=== PATIENT | female | born 1930 | race Caucasian/White ===

== ENCOUNTER 2017-05-30 15:05 | Inpatient (IN) | payer OTHER, MEDICARE ==
[2017-05-30 15:10] VITALS: BMI 26.2
--- NOTE | 2017-05-30 15:22 | PDOC ---
History of Present Illness - General History Source: Patient, Care Provider, Friend Exam Limitations: No Limitations - History of Present Illness Initial Comments: 05/30/17 16:19 The patient is an 86 year old female with past medical history of hypertension, Afib (currently not on blood thinners), venous stasis ulcers, and dementia who arrives to the ED from her PCPs office for low blood pressure today. As per aid , the patient had increased ambulation than she's had in the past few days because of her doctors appointment today. The aid states that upon arrival to the doctors office the patients hands became very cold and clammy, and the patient had a brief episode of unresponsiveness. At that time her blood pressure was taken and noted to be low. She denies any LOC. In the ED, the patient seems to have returned to her baseline, but her blood pressure remains low. The aid also reports that the patient has been battling a cold for the past ten days, complaining of a dry cough that has been improving every day. They note that she had been not at her baseline while fighting the cold, but has been a lot better today prior to this incident. In mid April, the patient fell and injured her leg, causing formation of a hematoma on her right leg, as a result of her Xarelto, which was excised at [facility] three weeks ago. The patient has not been on blood thinners since, but was at her PCPs office today to see if she can return to taking them. The patient also had a wound check on Saturday which has been healing well, and a new dressing was placed. She denies any sick contacts. She denies any fevers or chills, nausea, vomiting, diarrhea, SOB, CP, or urinary complaints. PCP: Jair Márquez <Rach Byers - Last Filed: 05/30/17 18:11> <Henrique Cardoso - Last Filed: 05/31/17 09:06> - General Chief Complaint: Lethargy Stated Complaint: LETHARGY,WEAKNESS Time Seen by Provider: 05/30/17 15:18 Past History <Rach Byers - Last Filed: 05/30/17 18:11> - Suicide/Smoking/Psychosocial Hx Smoking History: Never smoked Hx Alcohol Use: No Drug/Substance Use Hx: No Substance Use Type: None <Henrique Cardoso - Last Filed: 05/31/17 09:06> - Past Medical History Allergies/Adverse Reactions: Allergies Allergy/AdvReac Type Severity Reaction Status Date / Time iodine Allergy Verified 05/30/17 15:06 Penicillins Allergy Verified 05/30/17 15:06 donepezil AdvReac Intermediate abdominal Verified 05/30/17 15:06 pain Home Medications: Ambulatory Orders Cholecalciferol (Vitamin D3) [Vitamin D3] 2,000 unit PO DAILY tablet 01/22/17 Donepezil HCl [Aricept] 5 mg PO HS 05/30/17 Furosemide [Lasix] 20 mg PO BID 05/30/17 Potassium Chloride [K-Dur -] 20 meq PO BID 05/30/17 Review of Systems - Review of Systems Able to Perform ROS?: Yes Comments:: 05/30/17 16:21 CONSTITUTIONAL: Present: weakness, unresponsiveness Absent: fever, chills, diaphoresis HEENT: Absent: rhinorrhea, nasal congestion, throat pain, throat swelling, difficulty swallowing, mouth swelling, ear pain, eye pain, visual Changes CARDIOVASCULAR: Present: low blood pressure Absent: chest pain, syncope, palpitations, irregular heart rate, lightheadedness , peripheral edema RESPIRATORY: Present: cough Absent: shortness of breath, dyspnea with exertion, orthopnea, wheezing, stridor, hemoptysis GASTROINTESTINAL: Absent: abdominal pain, abdominal distension, nausea, vomiting, diarrhea, constipation, melena, hematochezia GENITOURINARY: Absent: dysuria, frequency, urgency, hesitancy, hematuria, flank pain, genital pain MUSCULOSKELETAL: Absent: myalgia, arthralgia, joint swelling SKIN: Absent: rash, itching, pallor HEMATOLOGIC/IMMUNOLOGIC: Absent: easy bleeding, easy bruising, lymphadenopathy, frequent infections ENDOCRINE: Absent: unexplained weight gain, unexplained weight loss, heat intolerance, cold intolerance NEUROLOGIC: Absent: headache, focal weakness or paresthesias, dizziness, unsteady gait, seizure, mental status changes, bladder or bowel incontinence PSYCHIATRIC: Absent: anxiety, depression, suicidal or homicidal ideation, hallucinations. All Other Systems: Reviewed and Negative <Rach Byers - Last Filed: 05/30/17 18:11> *Physical Exam - Vital Signs Last Vital Signs Temp Pulse Resp BP Pulse Ox 98.6 F 73 25 H 88/65 96 05/30/17 15:06 05/30/17 15:58 05/30/17 15:58 05/30/17 15:58 05/30/17 15:58 - Physical Exam Comments: 05/30/17 16:23 Thin and chachectic, no acute distress. Relatively alert and cooperative. Denied any pain or other symptoms at present. Revealed that R leg is well healed after surgery w/o pain or drainage. PEERLA and fundus optic exam was negative. ENT clear except for mildly dry mucous membranes. Neck supple without mass. Lungs, despite moderately severe cough, clear to PNA, full breath sounds bilaterally, no wheezes, rales or rhonchi. Cardiac controlled rate, irregular rhythm. No murmurs rubs or gallops, pulses full and symmetric. Abdomen was nontender without rebound or guarding. No organomegaly. Neurologically intact. Mild generalized weakness consistent with age and health , cranial nerves 2-12 in tact, no focal deficits, numbness or weakness <Rach Byers - Last Filed: 05/30/17 18:11> - Vital Signs Last Vital Signs Temp Pulse Resp BP Pulse Ox 98.6 F 74 16 93/62 92 L 05/30/17 15:06 05/30/17 15:06 05/30/17 15:06 05/30/17 15:06 05/30/17 15:06 <Henrique Cardoso - Last Filed: 05/31/17 09:06> ED Treatment Course - LABORATORY CBC & Chemistry Diagram: 05/30/17 15:30 05/30/17 15:30 - ADDITIONAL ORDERS Additional order review: Laboratory Results 05/30/17 15:30 PT with INR 14.8 H INR 1.33 H 05/30/17 15:30 RBC 4.35 MCV 89.1 MCHC 31.8 L RDW 13.6 MPV 9.7 Neutrophils % 72.8 Lymphocytes % 17.3 Monocytes % 9.1 Eosinophils % 0.2 Basophils % 0.6 - RADIOLOGY Radiograph Interpretation: 05/30/17 17:41 Chest X-ray as reviewed by Dr. Vo reports no definite infiltrate identified. Cardiomegaly. <Rach Byers - Last Filed: 05/30/17 18:11> - LABORATORY CBC & Chemistry Diagram: 05/31/17 07:30 05/31/17 01:30 <Henrique Cardoso - Last Filed: 05/31/17 09:06> Medical Decision Making - Medical Decision Making 05/30/17 17:56 Phone call placed to patient's PCP, Dr. Jair Márquez. Awaiting call back. 05/30/17 18:11 Dr. Márquez called back and case was discussed. Microblog sent to [facility] and call returned promptly. Case discussed. <Rach Byers - Last Filed: 05/30/17 18:11> - Medical Decision Making 05/30/17 17:47 Patient experienced mild vasovagal symptoms while in her doctor's office, becoming less responsive, cool, clammy, and diaphoretic for a short period of time. There was no loss of consciousness. Her blood pressure was noted to be low and she was transferred to the ER for evaluation Patient now is asymptomatic. She is alert and her mental status is normal according to her long time home health aide and her close friend, who accompany her. No recent chest pain, shortness of breath, abdominal pain, nausea, vomiting , diarrhea, diaphoresis. She has had a productive cough for approximately 1 week. 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 No interval change from prior EKG dated 10/13/[address] Márquez. Blood pressure has stabilized. Patient is not lightheaded or dizzy. Laboratories are significant for white count of 15.1 and troponin level of 0.21. Without specific cardiac symptoms and no change in EKG, did not feel this is clinically consistent with myocardial ischemia. However, primary attending was contacted, as well as the hospitalist, and she will be admitted for observation, serial EKGs and enzymes, and further treatment. Urinalysis is clear. Chest x-ray without infiltrate. Abdomen benign. Elevated white count most likely due to URI and/or bronchitis. Because of the elevated troponin, the patient will be admitted for observation, serial enzymes and EKGs. Dr. Márquez, Dr. Eason from cardiology, and hospitalist Dr. Faust were consulted by phone, the case was discussed, preliminary findings were reviewed, and the patient was accepted for admission and consultation. 05/30/17 18:16 05/30/17 18:21 05/31/17 09:04 <Henrique Cardoso - Last Filed: 05/31/17 09:06> *DC/Admit/Observation/Transfer - Attestations Scribe Attestion: 05/30/17 16:29 Documentation prepared by Rach Byers, acting as medical services coordinator for Henrique Caruso MD. <Rach Byers - Last Filed: 05/30/17 18:11> - Discharge Dispostion Admit: Yes <Henrique Cardoso - Last Filed: 05/31/17 09:06> Diagnosis at time of Disposition: Syncope, near - Discharge Dispostion Condition at time of disposition: Stable
[2017-05-30 15:36] LABS: EOS % 0.2 % (0-4.5); RDW 13.6 % (11.6-15.6)
[2017-05-30 15:43] LABS: BASO % 0.6 % (0-2.0); HEMATOCRIT 38.7 % (32.4-45.2); HEMOGLOBIN 12.3 GM/dl (10.7-15.3); LYMPH % 17.3 % (8-40); MCH 28.3 pg (25.7-33.7); MCHC 31.8 g/dl (32.0-36.0); MEAN CELL VOLUME 89.1 fl (80-96); MEAN PLT VOLUME 9.7 fl (7.5-11.1); MONO % 9.1 % (3.8-10.2); NEUT % 72.8 % (42.8-82.8); PLATELET COUNT 287 K/MM3 (134-434); RBC 4.35 M/mm3 (3.60-5.2); WHITE BLOOD COUNT 15.1 K/mm3 (4.0-10.8)
[2017-05-30 15:58] LABS: INR 1.33 (0.82-1.09); PROTHROMBIN TIME (PATIENT) 14.8 SEC (10.2-13.0)
[2017-05-30] MEDS ORDERED: SODIUM CHLORIDE 250 ML IV STA (15:58)
[2017-05-30 16:38] LABS: ALK PHOS 70 U/L (32-92); ANION GAP 13 (8-16); BILIRUBIN,TOTAL 0.7 mg/dl (0.2-1.0); BLOOD UREA NITROGEN 22 mg/dl (7-18); CALCIUM 9.1 mg/dl (8.4-10.2); CHLORIDE 98 mmol/L (98-107); CO2 22 mmol/L (22-28); CREATININE 1.7 mg/dl (0.6-1.3); GLUCOSE,RANDOM 226 mg/dl (74-106); POTASSIUM 5.1 mmol/L (3.5-5.1); SGOT/AST 25 U/L (10-42); SGPT/ALT 13 U/L (10-40); SODIUM 133 mmol/L (136-145); TOT PROT 6.4 g/dl (6.4-8.3)
[2017-05-30 17:33] LABS: TROPONIN I (DFP) 0.21 ng/ml (0.03-0.50)
[2017-05-30 18:00] LABS: URINE APPEARANCE Clear; URINE BILIRUBIN Negative (NEGATIVE); URINE BLOOD Negative (NEGATIVE); URINE GLUCOSE (UA) Negative (NEGATIVE); URINE KETONE Trace (NEGATIVE); URINE NITRITE Negative (NEGATIVE); URINE PROTEIN Trace (NEGATIVE); URINE UROBILINOGEN 0.2 (0.2-1.0)
[2017-05-30 18:02] LABS: URINE COLOR YELLOW
--- NOTE | 2017-05-30 22:53 | HP ---
CHIEF COMPLAINT: Brief unresponsiveness. PCP: Dr. Márquez HISTORY OF PRESENT ILLNESS: 86 year-old female with a PMH significant for HTN, atrial fibrillation off a/c x 3 weeks, systolic heart failure, carotid artery disease, venous stasis ulcers , and dementia. According to the patient's aide, patient has had upper respiratory symptoms, including a dry cough, x 10 days. Patient had an appointment to see her PCP today. Upon arrival, the patients hands became cold and clammy and she had a brief episode of unresponsiveness. Her blood pressure was taken and noted to be low. In the ED, the patient was at her baseline mental status. Patient was taken off Xarelto three weeks ago following a fall and injury to her right leg causing a hematoma which required surgical incision at [facility]. ER course was notable for: (1) BP 88/65 (2) WBC 15.1, afebrile (3) Lactic acid 3.2-->2.2 Recent Travel: No PAST MEDICAL HISTORY: Hypertension Atrial fibrillation Systolic heart failure Carotid artery disease Venous stasis ulcers Dementia Right leg wound s/p fall x 3 weeks ago PAST SURGICAL HISTORY: Incision and drainage of right leg hematoma ([facility] x 3 weeks ago) Social History: Smoking: never Alcohol: no Drugs: no Family History: Allergies iodine Allergy (Verified 05/30/17 15:06) Penicillins Allergy (Verified 05/30/17 15:06) donepezil Adverse Reaction (Intermediate, Verified 05/30/17 15:06) abdominal pain HOME MEDICATIONS: Home Medications Medication Instructions Recorded Cholecalciferol (Vitamin D3) 2,000 unit PO DAILY tablet 01/22/17 [Vitamin D3] Donepezil HCl [Aricept] 5 mg PO HS 05/30/17 Furosemide [Lasix] 20 mg PO BID 05/30/17 Potassium Chloride [K-Dur -] 20 meq PO BID 05/30/17 REVIEW OF SYSTEMS Patient uncooperative; answers every question with "you should rot in hell." Unable to obtain ROS. PHYSICAL EXAMINATION Vital Signs - 24 hr 05/30/17 05/30/17 05/30/17 15:06 15:58 16:22 Temperature 98.6 F Pulse Rate 74 Pulse Rate [ 73 86 Apical] Respiratory 16 25 H 21 Rate Blood Pressure 93/62 Blood Pressure 88/65 100/69 [Right Arm] O2 Sat by Pulse 92 L 96 89 L Oximetry (%) 05/30/17 05/30/17 05/30/17 16:24 16:50 17:11 Temperature Pulse Rate 75 83 79 Pulse Rate [ Apical] Respiratory Rate Blood Pressure Blood Pressure [Right Arm] O2 Sat by Pulse 92 L 92 L 93 L Oximetry (%) 05/30/17 05/30/17 05/30/17 17:24 18:20 18:32 Temperature Pulse Rate Pulse Rate [ 80 96 H Apical] Respiratory 21 19 121 H Rate Blood Pressure Blood Pressure 96/72 136/90 [Right Arm] O2 Sat by Pulse 92 L 93 L 93 L Oximetry (%) 05/30/17 05/30/17 05/30/17 19:37 20:18 20:52 Temperature 97.5 F L Pulse Rate 86 Pulse Rate [ 83 Apical] Respiratory 121 H 18 18 Rate Blood Pressure 111/61 Blood Pressure 96/62 [Right Arm] O2 Sat by Pulse 93 L 92 L 92 L Oximetry (%) GENERAL: Awake. Refuses to answer questions. HEAD: Normal with no signs of trauma. EYES: Pupils equal, round and reactive to light, extraocular movements intact, sclera anicteric, conjunctiva clear. No lid lag. EARS, NOSE, THROAT: Ears normal, nares patent, oropharynx clear without exudates. Moist mucous membranes. NECK: Normal range of motion, supple without lymphadenopathy, JVD, or masses. LUNGS: Breath sounds equal, clear to auscultation bilaterally. No wheezes, and no crackles. No accessory muscle use. HEART: Regular rate and rhythm, normal S1 and S2 . ABDOMEN: Soft, nontender, not distended, normoactive bowel sounds, no guarding, no rebound, no masses. MUSCULOSKELETAL: Normal range of motion at all joints. No bony deformities or tenderness. No CVA tenderness. UPPER EXTREMITIES: 2+ pulses, warm, well-perfused. No cyanosis. No clubbing. No peripheral edema. LOWER EXTREMITIES: 2+ pulses, warm, well-perfused. No calf tenderness. 2+ edema LLE; unaboot dressing removed from RLE, large surgical wound on lateral aspect, no active bleeding, no pus NEUROLOGICAL: Cranial nerves II-XII intact. PSYCHIATRIC: Uncooperative. Irritable, cursing, trying to kick staff. Laboratory Results - last 24 hr 05/30/17 05/30/1705/30/18 15:30 15:30 15:30 WBC 15.1 H D RBC 4.35 Hgb 12.3 D Hct 38.7 MCV 89.1 MCH 28.3 MCHC 31.8 L RDW 13.6 Plt Count 287 MPV 9.7 Neutrophils % 72.8 Lymphocytes % 17.3 Monocytes % 9.1 Eosinophils % 0.2 Basophils % 0.6 PT with INR 14.8 H INR 1.33 H Sodium 133 L Potassium 5.1 D Chloride 98 Carbon Dioxide 22 D Anion Gap 13 BUN 22 H Creatinine 1.7 H D Creat Clearance w eGFR 28.56 Random Glucose 226 H D Lactic Acid Calcium 9.1 Total Bilirubin 0.7 D AST 25 ALT 13 D Alkaline Phosphatase 70 Creatine Kinase 43 Troponin I 0.21 Total Protein 6.4 Albumin 3.0 L D Urine Color Urine Appearance Urine pH Ur Specific [place] Urine Protein Urine Glucose (UA) Urine Ketones Urine Blood Urine Nitrite Urine Bilirubin Urine Urobilinogen Ur Leukocyte Esterase 05/30/17 05/30/17 05/30/17 15:48 17:37 19:05 WBC RBC Hgb Hct MCV MCH MCHC RDW Plt Count MPV Neutrophils % Lymphocytes % Monocytes % Eosinophils % Basophils % PT with INR INR Sodium Potassium Chloride Carbon Dioxide Anion Gap BUN Creatinine Creat Clearance w eGFR Random Glucose Lactic Acid 3.2 H* 2.2 H* Calcium Total Bilirubin AST ALT Alkaline Phosphatase Creatine Kinase Troponin I Total Protein Albumin Urine Color Yellow Urine Appearance Clear Urine pH 6.0 Ur Specific [place] 1.015 Urine Protein Trace Urine Glucose (UA) Negative Urine Ketones Trace Urine Blood Negative Urine Nitrite Negative Urine Bilirubin Negative Urine Urobilinogen 0.2 Ur Leukocyte Esterase Negative ASSESSMENT/PLAN: 86 year-old female with a PMH significant for HTN, atrial fibrillation off a/c, systolic heart failure, carotid artery disease, venous stasis ulcers, and dementia. Has had URI for 10 days. Placed on observation for syncopal episode, THO, RLE wound and URI. Syncope --r/o neuro: CT head ordered --r/o cardiac: --first troponin neg, two pending --CXR unremarkable --serial ECGs --telemetry monitoring --r/o orthostasis --orthostatics Atrial fibrillation --off a/c x 3 weeks due to leg trauma and hematoma --continue atenolol for rate control --will not restart anticoagulation until intial CT head results back; if no bleed, consider restarting Xarelto, ASA Carotid artery disease --10/21/15 US: small to moderate plaques right common carotid bifurcation and proximal internal carotid artery; small to moderate size plaques left common carotid bifurcation and bulb; no evidence of hemodynamically significant stenosis --is not on statin therapy, should check with PCP if that has been considered Systolic heart failure --10/21/15 Echo: mild cLVH, LV function low normal, borderline global hypokinesis; VIKRAM; mild MR; mild TR --is on home lasix and potassium; hold for now due to low blood pressure, THO , and likely low volume state --CXR is clear, respiratory status stable THO Lactic acidosis --Cr 1.7, baseline 1.1, likely prerenal; urine sodium and urine Cr pending to calculate FeNa --hold home lasix; hold lisinopril --gentle IV fluids, monitor volume status carefully due to systolic HF Right lower extremity wound --large area of excised skin on lateral aspect; dried pus and blood on dressing but wound bed is very clean, clean edges, no active bleeding --re-dress with xeroform and sterile gauze --this may be the source of leukocytosis; if persists, may need osteo workup --no antibiotics for now Upper respiratory infection --reportedly going on for 10 days but improved according to aide --CXR unremarkable --no fever, + leukocytosis --flu swab pending --urine antigens pending --blood and urine cultures pending --hold antibiotics for now, recheck cbc in am Dementia --continue donepezil FEN Fluids: NS @ 42mL/hr Electrolytes: replete as indicated Nutrition: low sodium DVT prophylaxis: subq heparin Physical therapy evaluation Dispo: continues to require inpatient care. Full code. Visit type - Emergency Visit Emergency Visit: Yes ED Registration Date: 05/30/17 Care time: The patient presented to the Emergency Department on the above date and was hospitalized for further evaluation of their emergent condition. - New Patient This patient is new to me today: Yes Date on this admission: 05/31/17 - Critical Care Critical Care patient: No
[2017-05-30] MEDS: SODIUM CHLORIDE 1,000 ML IV SCH (23:18)
[2017-05-30] MEDS ORDERED: PATIENT'S OWN MEDICATION (NON-FORMULARY) (Atenolol [Tenormin -] 100 MG) PO SCH (23:45)
[2017-05-31] MEDS ORDERED: LORazepam 2 MG/ML SDV VIAL IVPUSH ONE (01:13)
[2017-05-31] MEDS ORDERED: LORazepam 2 MG/ML SDV VIAL ONE (01:29)
[2017-05-31 01:56] LABS: BASO % 0.5 % (0-2.0); EOS % 0.5 % (0-4.5); HEMATOCRIT 33.9 % (32.4-45.2); HEMOGLOBIN 10.8 GM/dL (10.7-15.3); LYMPH % 26.1 % (8-40); MCH 27.5 pg (25.7-33.7); MCHC 31.9 g/dl (32.0-36.0); MEAN CELL VOLUME 86.3 fl (80-96); MEAN PLT VOLUME 9.1 fl (7.5-11.1); MONO % 8.9 % (3.8-10.2); PLATELET COUNT 231 K/MM3 (134-434); RBC 3.93 M/mm3 (3.60-5.2); RDW 14.9 % (11.6-15.6); WHITE BLOOD COUNT 14.9 K/mm3 (4.0-10.0)
[2017-05-31 02:29] LABS: ALBUMIN 2.6 g/dl (3.4-5.0); ANION GAP 7 (8-16); BILIRUBIN,TOTAL 0.6 mg/dL (0.2-1.0); BLOOD UREA NITROGEN 25 mg/dL (7-18); CALCIUM 8.2 mg/dL (8.5-10.1); CHLORIDE 102 mmol/L (98-107); CO2 26 mmol/L (21-32); CREATININE 1.5 mg/dL (0.55-1.02); GLUCOSE,RANDOM 128 mg/dL (74-106); MAGNESIUM 2.2 mg/dL (1.8-2.4); PHOSPHOROUS 3.8 mg/dL (2.5-4.9); POTASSIUM 4.7 mmol/L (3.5-5.1); SGOT/AST 15 U/L (15-37); SGPT/ALT 15 U/L (12-78); SODIUM 135 mmol/L (136-145); TOT PROT 6.3 g/dl (6.4-8.2)
[2017-05-31 02:32] LABS: ALK PHOS 82 U/L (45-117)
--- NOTE | 2017-05-31 03:00 | HOSP ---
Subjective - Review of Symptoms Subjective: I got a phone call at 2:58 am from radiology , No acute process on CT HEAD Physical Examination Vital Signs: Vital Signs Temperature 97.5 F L 05/30/17 20:18 Pulse Rate 86 05/30/17 20:18 Respiratory Rate 18 05/30/17 20:52 Blood Pressure 111/61 05/30/17 20:18 O2 Sat by Pulse Oximetry (%) 92 L 05/30/17 20:52 Labs: CBC, BMP 05/31/17 01:30 05/31/17 01:30
[2017-05-31] MEDS ORDERED: FUROSEMIDE 20 MG TABLET (FP) PO SCH (06:00)
[2017-05-31] MEDS ORDERED: HEPARIN NA (PORCINE) 5,000 UNITS/ML 1ML VIAL ONE (06:42)
[2017-05-31] MEDS ORDERED: HEPARIN NA (PORCINE) 5,000 UNITS/ML 1ML VIAL SQ SCH (06:45)
--- NOTE | 2017-05-31 06:54 | PN ---
Physical Exam: SUBJECTIVE: Patient seen and examined, wants to be left alone, voices no complaints OBJECTIVE:86 year-old female with a PMH significant for HTN, atrial fibrillation off a/c x 3 weeks, systolic heart failure, carotid artery disease, venous stasis ulcers, and dementia. Patient was admitted from the emergency department for emergent condition. Vital Signs Period Temp Pulse Resp BP Sys/Valerio Pulse Ox Last 24 Hr 97.5 F-98.6 F 73-96 16-121 88-136/42-90 89-96 GENERAL: The patient is awake, alert, and oriented x person, agitate. HEAD: Normal with no signs of trauma. EYES: PERRL, extraocular movements intact, sclera anicteric, conjunctiva clear. No ptosis. ENT: Ears normal, nares patent, oropharynx clear without exudates, moist mucous membranes. NECK: Trachea midline, full range of motion, supple. LUNGS: Breath sounds equal, clear to auscultation bilaterally, no wheezes, no crackles, no accessory muscle use. HEART: Regular rate and rhythm, S1, S2 without murmur, rub or gallop. ABDOMEN: Soft, nontender, nondistended, normoactive bowel sounds, no guarding, no rebound, no hepatosplenomegaly, no masses. EXTREMITIES: 2+ pulses, warm, well-perfused, no edema. RIGHT LOWER EXTREMITY: surgical wound to the distal lateral right extremity, no drainage noted, xerorform dressing noted NEUROLOGICAL: Cranial nerves II through XII grossly intact. Normal speech, gait not observed. PSYCH: Normal mood, normal affect. SKIN: Warm, dry, normal turgor, no rashes or lesions noted Laboratory Results - last 24 hr CBC WBC 13.5 K/mm3 (4.0-10.8) H 05/31/17 07:30 RBC 3.65 M/mm3 (3.60-5.2) 05/31/17 07:30 Hgb 10.6 GM/dl (10.7-15.3) L D 05/31/17 07:30 Hct 32.3 % (32.4-45.2) L D 05/31/17 07:30 MCV 88.5 fl (80-96) 05/31/17 07:30 MCH 29.2 pg (25.7-33.7) 05/31/17 07:30 MCHC 33.0 g/dl (32.0-36.0) 05/31/17 07:30 RDW 13.8 % (11.6-15.6) 05/31/17 07:30 Plt Count 219 K/MM3 (134-434) 05/31/17 07:30 MPV 9.2 fl (7.5-11.1) 05/31/17 07:30 Neutrophils % 69.8 % (42.8-82.8) 05/31/17 07:30 Lymphocytes % 20.9 % (8-40) 05/31/17 07:30 Monocytes % 8.6 % (3.8-10.2) 05/31/17 07:30 Eosinophils % 0.5 % (0-4.5) 05/31/17 07:30 Basophils % 0.2 % (0-2.0) 05/31/17 07:30 CMP Sodium 137 mmol/L (136-145) 05/31/17 07:30 Potassium 4.8 mmol/L (3.5-5.1) 05/31/17 07:30 Chloride 104 mmol/L (98-107) 05/31/17 07:30 Carbon Dioxide 23 mmol/L (22-28) 05/31/17 07:30 Anion Gap 10 (8-16) 05/31/17 07:30 BUN 24 mg/dl (7-18) H 05/31/17 07:30 Creatinine 1.4 mg/dl (0.6-1.3) H 05/31/17 07:30 Creat Clearance w eGFR 35.74 (>60) 05/31/17 07:30 Random Glucose 138 mg/dl (74-106) H D 05/31/17 07:30 Lactic Acid 1.2 mmol/L (0.4-2.0) 05/31/17 07:00 Calcium 8.4 mg/dl (8.4-10.2) 05/31/17 07:30 Phosphorus 3.8 mg/dl (2.5-4.6) 05/31/17 07:30 Magnesium 2.0 mg/dL (1.8-2.4) 05/31/17 07:30 Total Bilirubin 0.5 mg/dl (0.2-1.0) D 05/31/17 07:30 AST 17 U/L (10-42) D 05/31/17 07:30 ALT 11 U/L (10-40) 05/31/17 07:30 Alkaline Phosphatase 57 U/L (32-92) 05/31/17 07:30 Creatine Kinase 43 IU/L (26-192) 05/30/17 15:30 Troponin I 0.15 ng/ml (0.00-0.05) H 05/31/17 01:30 Total Protein 5.4 g/dl (6.4-8.3) L 05/31/17 07:30 Albumin 2.5 g/dl (3.5-5.0) L 05/31/17 07:30 Active Medications Generic Name Dose Route Start Last Admin Trade Name Freq PRN Reason Stop Dose Admin Atenolol 50 mg 05/31/17 10:00 Tenormin - PO DAILY ITZEL Donepezil HCl 5 mg 05/31/17 22:00 Aricept - PO HS ITZEL Heparin Sodium (Porcine) 5,000 unit 05/31/17 06:45 Heparin - SQ TID ITZEL Sodium Chloride 1,000 mls @ 42 mls/hr 05/30/17 23:45 Normal Saline - IV ASDIR ITZEL Microbiology 05/31/17 01:30 Nasopharyngeal Swab Influenza Types A,B Antigen (KAITLYNN) - Final , negative 05/31/17 01:30 Nasopharyngeal Swab - Final IMAGING head ct no acute pathology chest xray: borderline cardiomegly, no infilitrate noted ASSESSMENT/PLAN: 1) cardiovascular Syncope - continous cardiac monitoring - orthostatic vital signs q6h - pending echo and carotid doppler elevated troponin - likely secondary to ischemic demand, first troponin 0.21, pending 2nd & 3rd afib - restart xarelto (renal dose), rate controlled continue atenolol Carotid artery disease - pending carotid doppler and lipid profile Systolic heart failure -10/21/15 Echo: mild cLVH, LV function low normal, borderline global hypokinesis; VIKRAM; mild MR; mild TR, pending echo today - hypovolemic hold lasix, strict i/o and daily weight 2) nephrology THO - repeat creatine 1.4 baseline 1.1, likely prerenal; urine sodium and urine Cr pending to calculate FeNa - --hold home lasix; hold lisinopril - gentle IV fluids, monitor volume status carefully due to systolic HF 3) Right lower extremity wound - large area of excised skin on lateral aspect, wound bed is very clean, clean edges, no active bleeding - continue xeroform and sterile gauze 4) ID leukocytosis - wbc 13.5, pt is afebrile, pending am labs, follow up blood and urine cultures - moist cough noted on exam, repeat cxr 5) neuro Dementia - continue donepezil FEN Fluids: NS @ 42mL/hr Electrolytes: replete as indicated Nutrition: low sodium DVT prophylaxis: xarelto Physical therapy evaluation Dispo: continues to require inpatient care. Full code. Visit type - Emergency Visit Emergency Visit: Yes ED Registration Date: 05/31/17 Care time: The patient presented to the Emergency Department on the above date and was hospitalized for further evaluation of their emergent condition. - New Patient This patient is new to me today: Yes Date on this admission: 05/31/17 - Critical Care Critical Care patient: No - Discharge Referral Referred to [facility] Med P.C.: No
[2017-05-31 08:23] LABS: BASO % 0.2 % (0-2.0); EOS % 0.5 % (0-4.5); HEMATOCRIT 32.3 % (32.4-45.2); HEMOGLOBIN 10.6 GM/dl (10.7-15.3); LYMPH % 20.9 % (8-40); MCH 29.2 pg (25.7-33.7); MEAN CELL VOLUME 88.5 fl (80-96); MEAN PLT VOLUME 9.2 fl (7.5-11.1); MONO % 8.6 % (3.8-10.2); NEUT % 69.8 % (42.8-82.8); PLATELET COUNT 219 K/MM3 (134-434); RBC 3.65 M/mm3 (3.60-5.2); RDW 13.8 % (11.6-15.6); WHITE BLOOD COUNT 13.5 K/mm3 (4.0-10.8)
[2017-05-31 09:37] LABS: ALBUMIN 2.5 g/dl (3.5-5.0); ALK PHOS 57 U/L (32-92); ANION GAP 10 (8-16); BILIRUBIN,TOTAL 0.5 mg/dl (0.2-1.0); BLOOD UREA NITROGEN 24 mg/dl (7-18); CALCIUM 8.4 mg/dl (8.4-10.2); CHLORIDE 104 mmol/L (98-107); CO2 23 mmol/L (22-28); CREATININE 1.4 mg/dl (0.6-1.3); GLUCOSE,RANDOM 138 mg/dl (74-106); PHOSPHOROUS 3.8 mg/dl (2.5-4.6); POTASSIUM 4.8 mmol/L (3.5-5.1); SGOT/AST 17 U/L (10-42); SGPT/ALT 11 U/L (10-40); SODIUM 137 mmol/L (136-145); TOT PROT 5.4 g/dl (6.4-8.3)
[2017-05-31] MEDS ORDERED: POTASSIUM CHLORIDE TABS 20 MEQ TABLET.ER (FP) PO SCH (10:00)
--- NOTE | 2017-05-31 10:13 | EKG ---
Test Reason : Blood Pressure : / mmHG Vent. Rate : 076 BPM Atrial Rate : 098 BPM P-R Int : 000 ms QRS Dur : 076 ms QT Int : 396 ms P-R-T Axes : 000 -39 -08 degrees QTc Int : 445 ms ATRIAL FIBRILLATION LEFT AXIS DEVIATION ANTERIOR INFARCT , AGE UNDETERMINED ABNORMAL ECG NO PREVIOUS ECGS AVAILABLE Confirmed by MD AJ, JUILAN ([id number]) on 05/31/2017 10:13:07 AM Referred By: DR MICHELLE Confirmed By:JULIAN ROCHA MD
[2017-05-31] MEDS: ATENOLOL 50 MG TABLET (FP) PO SCH (10:19)
[2017-05-31 12:19] LABS: TROPONIN I (DFP) 0.12 ng/ml (0.03-0.50)
[2017-05-31 17:08] LABS: CHOLESTEROL 119 mg/dl; HDL CHOLESTEROL 22 mg/dl (29-89); LDL CHOLESTEROL (ONLY DFH) 73 mg/dl; TRIGLYCERIDES 121 mg/dl (35-160)
[2017-05-31] MEDS ORDERED: RIVAROXABAN 15 MG TABLET PO SCH (18:00)
--- NOTE | 2017-05-31 18:45 | EKG ---
Test Reason : Blood Pressure : / mmHG Vent. Rate : 080 BPM Atrial Rate : 110 BPM P-R Int : 000 ms QRS Dur : 072 ms QT Int : 446 ms P-R-T Axes : 000 -38 -27 degrees QTc Int : 514 ms ATRIAL FIBRILLATION LEFT AXIS DEVIATION SEPTAL INFARCT (CITED ON OR BEFORE 30-MAY-2017) T WAVE ABNORMALITY, CONSIDER ANTERIOR ISCHEMIA PROLONGED QT WHEN COMPARED WITH ECG OF 30-MAY-2017 15:44, T WAVE INVERSION NOW EVIDENT IN ANTERIOR LEADS QT HAS LENGTHENED Confirmed by MD SEVERIANO, ANANYA ([id number]) on 05/31/2017 6:45:15 PM Referred By: ROXANE COLE Confirmed By:ANANYA العلي MD
[2017-05-31] MEDS ORDERED: HEPARIN NA (PORCINE) 5,000 UNITS/ML 1ML VIAL IVPUSH PRN (19:18)
[2017-05-31] MEDS ORDERED: HEPARIN - 25,000 UNIT in SODIUM CHLORIDE 495 ML IV SCH (19:30)
[2017-05-31 21:05] LABS: TROPONIN I (DFP) 0.07 ng/ml (0.03-0.50)
--- NOTE | 2017-05-31 21:09 | HOSP ---
Subjective - Review of Symptoms Events since last encounter: verbal report of possible thrombus in right atria on echo obtained Subjective: pt with c/o being "terrible" unable to give specific complaints. pt has dementia and is unable or unwilling to provide further details Physical Examination Vital Signs: Vital Signs Temperature 98.3 F 05/31/17 20:14 Pulse Rate 88 05/31/17 20:14 Respiratory Rate 18 05/31/17 20:14 Blood Pressure 138/95 05/31/17 20:14 O2 Sat by Pulse Oximetry (%) 97 05/31/17 20:14 Constitutional: Yes: Other (mildly uncooperative) Cardiovascular: Yes: Regular Rate and Rhythm, S1, S2 Respiratory: Yes: CTA Bilaterally Gastrointestinal: Yes: Normal Bowel Sounds, Soft, Tenderness (on deep palpation) Labs: CBC, BMP 05/31/17 07:30 05/31/17 07:30 Hospitalist Encounter Assessment: B/L DVT, possible thrombus in RA - DW dr. Smith, will change from xarelto to heparin for now, hematology consult - there is concern for the RA thrombus to break off and travel causing PE. At this time pt is stable, showing no signs of PE, Cr 1.4, unable to do CTA, discussed possibility of transfer to [facility] where there is ICU availabe; however treatment plan would likely be unchanged from current. Will defer transfer unless acute CIC or deterioration. - TC placed to brother, Elver Cordoba to discuss goals of care as well as advanced directives. Message left on voicemail. [phone], she also has a close friend in the area who looks in on her from time to time: pam Cordoba [phone] and I updated her briefly on her condition when she called the unit.
--- NOTE | 2017-05-31 21:32 | CON.CARD ---
Cardiology Consult (text) - Consultation Consultation Note: CC: syncope 86 yo with h/o HTN, atrial fibrillation, borderline systolic dysfunction, carotid artery disease, venous stasis ulcers/Right leg wound s/p fall x 3 weeks ago, ckd and dementia who p/w hypotension/episode of unresponsiveness. Per report had been off AC for 3 weeks following a fall and injury to her right leg/chronic venous stasis ulcer requiring surgery. Per report, had recent upper respiratory symptoms, including a dry cough, x 10 days. On pmd evaluation was noted to be hypotensive --> brought to ER Hospital course complicated by elevated troponin and now diagnosis of DVT and right atrial mobile mass. pmhx/pshx: per hpi fam hx: per report, no cardiac history social hx: never smoker. has aid ros: per hpi Allergies iodine Allergy (Verified 05/30/17 15:06) Penicillins Allergy (Verified 05/30/17 15:06) donepezil Adverse Reaction (Intermediate, Verified 05/30/17 15:06) abdominal pain Ambulatory Orders Cholecalciferol (Vitamin D3) [Vitamin D3] 2,000 unit PO DAILY tablet 01/22/17 Donepezil HCl [Aricept] 5 mg PO HS 05/30/17 Furosemide [Lasix] 20 mg PO BID 05/30/17 Potassium Chloride [K-Dur -] 20 meq PO BID 05/30/17 Current Medications Atenolol (Tenormin -) 50 mg PO DAILY [facility] Last Admin: 05/31/17 10:19 Dose: 50 mg Donepezil HCl (Aricept -) 5 mg PO [facility] Heparin Sodium (Porcine) (Heparin -) 1,000 unit IVPUSH PRN PRN PRN Reason: Heparin Heparin Sodium (Porcine) (Heparin -) 5,000 unit IVPUSH PRN PRN PRN Reason: Heparin Sodium Chloride (Normal Saline -) 1,000 mls @ 42 mls/hr IV ASDIR ITZEL Last Admin: 05/30/17 23:18 Dose: 42 mls/hr HEPARIN SOD,PORK IN 0.45% NACL (Heparin-1/2ns 25,000 Units/500) 25,000 units in 500 mls @ 20 mls/hr IVPB TITR ITZEL; 1,000 UNITS/HR PRN Reason: Protocol Vital Signs - 24 hr 05/31/17 05/31/17 05/31/17 06:00 08:11 10:23 Temperature Pulse Rate 77 85 Respiratory 18 18 Rate Blood Pressure 99/42 129/79 O2 Sat by Pulse 90 L 100 Oximetry (%) 05/31/17 05/31/17 14:12 20:14 Temperature 97.4 F L 98.3 F Pulse Rate 85 88 Respiratory 19 18 Rate Blood Pressure 118/69 138/95 O2 Sat by Pulse 99 97 Oximetry (%) Intake & Output 05/29/17 05/30/17 05/31/17 06/01/17 07:59 07:59 07:59 07:59 Intake Total 900 150 Output Total 100 Balance 800 150 Weight 153 lb 0.013 oz nad, calm jvd flat, neck supple ctab, poor effort irregularly, irregular, nl s1, s2 no mrg. ND PMI + bs soft nt nd, no hsm ext without e/c/c dressing to RLE wound diminished dp/pt on right no carotid bruits alert not oriented. no jaundice, diaphoresis. CBC, BMP 05/31/17 07:30 05/31/17 07:30 Laboratory Tests 05/30/17 05/30/17 05/30/17 15:30 15:48 19:05 Sodium 133 L Creatinine 1.7 H D Lactic Acid 3.2 H* 2.2 H* Total Bilirubin AST ALT Alkaline Phosphatase Creatine Kinase 43 Troponin I 0.21 Albumin Triglycerides Cholesterol Total LDL Cholesterol HDL Cholesterol 05/31/17 05/31/17 05/31/17 01:30 07:00 07:30 Sodium Creatinine Lactic Acid 1.2 Total Bilirubin 0.5 D AST 17 D ALT 11 Alkaline Phosphatase 57 Creatine Kinase Troponin I 0.15 H Albumin 2.5 L Triglycerides Cholesterol Total LDL Cholesterol HDL Cholesterol 05/31/17 05/31/17 05/31/17 08:00 11:30 15:00 Sodium Creatinine Lactic Acid Total Bilirubin AST ALT Alkaline Phosphatase Creatine Kinase 31 28 Troponin I 0.12 0.07 Albumin Triglycerides 121 D Cholesterol 119 Total LDL Cholesterol 73 HDL Cholesterol 22 L D ekg: afib, lad, anterior q waves. anterior twi. similar to priors in chart. tele: rate controlled afib. cxr: no infiltrate, chf. carotid u/s: [id number] plaques bilaterally. no stenosis. head ct: no acute pathology echo 10/2015: 1+ conc lvh. nl lv size. LVEF low normal, global. rv nl size/ fn. mod claus. mild-mod mac. 1+ mr. A/p 86 yo with h/o HTN, atrial fibrillation, borderline systolic dysfunction, carotid artery disease, venous stasis ulcers/Right leg wound s/p fall x 3 weeks ago, ckd and dementia who p/w hypotension/episode of unresponsiveness. DVT with RA mobile mass - likely with thrombus in transit, echo report pending. High risk for PE - Discussed with pmd. Patient has been refusing po meds. Nurse is currently trying to give xarelto. Plan for heparin drip trial. (Unclear if she will tolerate blood draws, patient becomes very combative at night. - Consider hematology consult - pmd to initiate goc discussions with family. per report, patient has one sister, no children. elevated troponin - borderline elevation in the setting of ckd. flat trend, normal CK. No acute ischemic changes. not consistent with ACS. Likey strain in the setting of hypotension. However, troponin was downtrending, can't r/o missed event. Echo pending, evaluate for new rwma. - no ASA, b/c restarting AC. no need for statin, LDL in 70s hypotension/unresponsiveness. - possibly in the setting of poor po intake. Patient bp/bmp improving on IVF. - ongoing work up per pmd. - syncopal work up thus far unremarkable. carotid u/s, head ct without acute pathology . echo pending. tele unremarkable. - infectious work up, mgm't of venous stasis ulcer per pmd Afib - Per report had been off AC for 3 weeks following a fall and injury to her right leg/chronic venous stasis ulcer requiring surgery. - ac as above. - currently rate controlled on atenolol. bp stable. borderline systolic dysfunction - noted on echo in 2015. - repeat echo pending - no signs of volume overload, con't maintenance ivf. carotid artery disease - on ac, no asa. would defer statin in setting of LDLin the 70's. - can consider pvr's given LE ulcer. nikki/ckd - currently gfr in 30's, was 47 01/2017 - improving on ivf, con't
[2017-05-31] MEDS ORDERED: RAMIPRIL 5 MG CAPSULE (FP) PO SCH (22:00)
[2017-05-31] MEDS: DONEPEZIL HCL 5 MG TABLET (FP) PO SCH ×2 (23:17→23:20)
[2017-05-31] MEDS: SODIUM CHLORIDE 1,000 ML IV SCH (23:45)
[2017-06-01] MEDS: HEPARIN NA (PORCINE) 5,000 UNITS/ML 1ML VIAL IVPUSH PRN (00:27)
[2017-06-01] MEDS: HEPARIN SOD,PORK IN 0.45% NACL 25,000 UNITS/500 ML INFUS.BAG IVPB SCH ×2 (00:45→10:06)
--- NOTE | 2017-06-01 07:47 | PN ---
Progress Note, Physician Chief Complaint: RA mass, syncope History of Present Illness: sleepy but wakes up to talk. denies sob ("not really"). no cp/pressure no palpitations, leg swelling no cigs - Current Medication List Current Medications: Active Medications Atenolol (Tenormin -) 50 mg PO DAILY [facility] Last Admin: 05/31/17 10:19 Dose: 50 mg Donepezil HCl (Aricept -) 5 mg PO HS [facility] Last Admin: 05/31/17 23:20 Dose: Not Given Heparin Sodium (Porcine) (Heparin -) 1,000 unit IVPUSH PRN PRN PRN Reason: Heparin Heparin Sodium (Porcine) (Heparin -) 5,000 unit IVPUSH PRN PRN PRN Reason: Heparin Last Admin: 06/01/17 00:27 Dose: 5,000 unit Sodium Chloride (Normal Saline -) 1,000 mls @ 42 mls/hr IV ASDIR [facility] Last Admin: 05/31/17 23:45 Dose: 42 mls/hr HEPARIN SOD,PORK IN 0.45% NACL (Heparin-1/2ns 25,000 Units/500) 25,000 units in 500 mls @ 20 mls/hr IVPB TITR ITZEL; 1,000 UNITS/HR PRN Reason: Protocol Last Admin: 06/01/17 00:45 Dose: 800 units/hr, 16 mls/hr - Objective Vital Signs: Vital Signs Temperature 97.8 F 06/01/17 06:00 Pulse Rate 88 06/01/17 06:00 Respiratory Rate 18 06/01/17 06:00 Blood Pressure 102/60 06/01/17 06:00 O2 Sat by Pulse Oximetry (%) 93 L 06/01/17 06:00 Constitutional: Yes: No Distress, Calm Eyes: No: Sclera Icterus HENT: No: Nasal Congestion Cardiovascular: Yes: Pulse Irregular, JVD (4-5 cm), S1, S2, Other (PMI non diplaced). No: Gallop, Murmur Respiratory: Yes: CTA Bilaterally. No: Accessory Muscle Use, Rales, Wheezes Gastrointestinal: Yes: Normal Bowel Sounds, Soft. No: Tenderness Musculoskeletal: Yes: Other (No kyphosis) Extremities: No: Cold Edema: No Integumentary: No: Jaundice Neurological: Yes: Alert, Oriented (x3) Psychiatric: No: Agitated Labs: CBC, BMP 05/31/17 07:30 05/31/17 07:30 INR, PTT INR 1.33 (0.82-1.09) H 05/30/17 15:30 - ....Imaging EKG: Other (tele: afib, good HRs) Assessment/Plan Echo 05/31/17: nl LV/EF. RV tds. dilated LA/RA. large complex echodensity in RA, protrudes into IVC c/w thrombus. mod TR. RVSP 47. LE duplex: bilat DVTs (extensive RLE) 86 year-old female with a PMH significant for HTN, atrial fibrillation off a/c x 3 weeks, ? systolic heart failure, carotid artery disease, venous stasis ulcers, and dementia. + upper respiratory symptoms, including a dry cough, x 10 days. At PMD office on DOA she became cold and clammy and she had a brief episode of unresponsiveness. Her blood pressure was noted to be low. Returned to baseline mental status. In the ED, the patient was at her baseline mental status. Patient was taken off Xarelto three weeks ago following a fall and injury to her right leg causing a hematoma which required surgical incision at [facility]. extensive LE DVT, RA thrombus: -probable thrombus in RA, extending from IVC. likely from extensive RLE thrombus , in transit. -DVT ? provoked, given recent fall with injury and surgical procedure (? duration of hospitalization/immobilization since) -no PE study done here, will not likely change mgmt as duration of AC will be similar regardless. -creat improving with IVF, cont same--GFR 38. once GFR comes up slightly more, will do CTA, in case of later questions arising regarding duration of AC (falls history noted), -for now, continue UFH as doing -monitor for signs of resp distress/hypoxia (normal sats thus far) -rec transfer to telemetry (4W) or medical step-down (4S) at [facility] when/if bed becomes available -if she remains clinically stable, will rec repeat imaging after 2-4 weeks of AC , expect thrombus to organize and/or break up -rec malignancy w/u including for renal cell carcinoma (will start with renal sono). rec hematology consult syncope: -brief LOC with hypotension on DOA at PMD office -likely sec to PE or ? right sided cardiac output obstruction from RA mass -transient sx's, hemodynamically stable since -mgmt plan as above -d/w dr tang, crit care--safe to defer ICU monitoring as she has been clinically stable x 24 hrs. Afib: -HR controlled, cont atenolol -AC as above HTN: -bp running low-normal range -cont atenolol, observe bp trend THO: -likely vol depleted/prerenal -numbers improving with IVF
[2017-06-01 09:05] LABS: HEMATOCRIT 33.9 % (32.4-45.2); HEMOGLOBIN 10.7 GM/dl (10.7-15.3); MCH 27.8 pg (25.7-33.7); MCHC 31.6 g/dl (32.0-36.0); MEAN CELL VOLUME 88.2 fl (80-96); MEAN PLT VOLUME 8.9 fl (7.5-11.1); PLATELET COUNT 222 K/MM3 (134-434); RBC 3.85 M/mm3 (3.60-5.2); RDW 13.8 % (11.6-15.6)
[2017-06-01 09:07] LABS: ADD RBC MORPHOLOGY YES
[2017-06-01 09:34] LABS: ALBUMIN 2.5 g/dl (3.5-5.0); ALK PHOS 56 U/L (32-92); ANION GAP 9 (8-16); BLOOD UREA NITROGEN 18 mg/dl (7-18); CHLORIDE 106 mmol/L (98-107); CO2 23 mmol/L (22-28); CREATININE 1.3 mg/dl (0.6-1.3); GLUCOSE,RANDOM 131 mg/dl (74-106); MAGNESIUM 2.1 mg/dL (1.8-2.4); PHOSPHOROUS 3.8 mg/dl (2.5-4.6); POTASSIUM 4.4 mmol/L (3.5-5.1); SGOT/AST 17 U/L (10-42); SGPT/ALT 9 U/L (10-40); SODIUM 138 mmol/L (136-145); TOT PROT 5.6 g/dl (6.4-8.3)
[2017-06-01] MEDS: ATENOLOL 50 MG TABLET (FP) PO SCH (10:00)
--- NOTE | 2017-06-01 10:09 | PN ---
Physical Exam: SUBJECTIVE: Patient seen and examined at bedside. OBJECTIVE: Vital Signs Period Temp Pulse Resp BP Sys/Valerio Pulse Ox Last 24 Hr 97.4 F-98.3 F 85-88 18-19 102-138/60-95 93-100 GENERAL: The patient is awake, alert, and oriented x2 (Knows name, "[facility]"), in no acute distress. Gives deliberate responses. LUNGS: Breath sounds equal, clear to auscultation bilaterally, no wheezes, no crackles, no accessory muscle use. HEART: Irregular rhythm, S1, S2 without murmur, rub or gallop. ABDOMEN: Soft, nontender, nondistended, normoactive bowel sounds, no guarding, no rebound, no hepatosplenomegaly, no masses. EXTREMITIES: 2+ pulses, warm, well-perfused, no edema. Large area of excised skin on lateral aspect, wound bed is very clean, clean edges, no active bleeding NEUROLOGICAL: Cranial nerves II through XII grossly intact. Normal speech, gait not observed. PSYCH: Normal mood, normal affect. SKIN: Large area of excised skin on lateral aspect, wound bed is very clean, clean edges, no active bleeding Laboratory Results - last 24 hr 05/30/17 05/31/17 05/31/17 15:30 08:00 11:30 WBC RBC Hgb Hct MCV MCH MCHC RDW Plt Count MPV Neutrophils % Lymphocytes % PTT (Actin FS) Sodium Potassium Chloride Carbon Dioxide Anion Gap BUN Creatinine Creat Clearance w eGFR Random Glucose Lactic Acid Cancelled Calcium Phosphorus Magnesium Total Bilirubin AST ALT Alkaline Phosphatase Creatine Kinase 31 Troponin I 0.12 Total Protein Albumin Triglycerides 121 D Cholesterol 119 Total LDL Cholesterol 73 HDL Cholesterol 22 L D 05/31/17 05/31/17 06/01/17 15:00 20:30 08:52 WBC 16.0 H RBC 3.85 Hgb 10.7 Hct 33.9 MCV 88.2 MCH 27.8 MCHC 31.6 L RDW 13.8 Plt Count 222 MPV 8.9 Neutrophils % No Result Required. Lymphocytes % No Result Required. PTT (Actin FS) 30.4 Sodium Potassium Chloride Carbon Dioxide Anion Gap BUN Creatinine Creat Clearance w eGFR Random Glucose Lactic Acid Calcium Phosphorus Magnesium Total Bilirubin AST ALT Alkaline Phosphatase Creatine Kinase 28 Troponin I 0.07 Total Protein Albumin Triglycerides Cholesterol Total LDL Cholesterol HDL Cholesterol 06/01/17 06/01/17 08:52 08:52 WBC RBC Hgb Hct MCV MCH MCHC RDW Plt Count MPV Neutrophils % Lymphocytes % PTT (Actin FS) 79.6 H Sodium 138 Potassium 4.4 Chloride 106 Carbon Dioxide 23 Anion Gap 9 BUN 18 D Creatinine 1.3 Creat Clearance w eGFR 38.93 Random Glucose 131 H Lactic Acid Calcium 8.0 L Phosphorus 3.8 Magnesium 2.1 Total Bilirubin 1.0 D AST 17 ALT 9 L Alkaline Phosphatase 56 Creatine Kinase Troponin I Total Protein 5.6 L Albumin 2.5 L Triglycerides Cholesterol Total LDL Cholesterol HDL Cholesterol Active Medications Generic Name Dose Route Start Last Admin Trade Name Freq PRN Reason Stop Dose Admin Atenolol 50 mg 05/31/17 10:00 05/31/17 10:19 Tenormin - PO 50 mg DAILY ITZEL Administration Donepezil HCl 5 mg 05/31/17 22:00 05/31/17 23:20 Aricept - PO Not Given HS ITZEL Heparin Sodium (Porcine) 1,000 unit 05/31/17 19:18 Heparin - IVPUSH PRN PRN Heparin Heparin Sodium (Porcine) 5,000 unit 05/31/17 19:18 06/01/17 00:27 Heparin - IVPUSH 5,000 unit PRN PRN Administration Heparin Sodium Chloride 1,000 mls @ 42 mls/hr 05/30/17 23:45 05/31/17 23:45 Normal Saline - IV 42 mls/hr ASDIR ITZEL Administration HEPARIN SOD,PORK IN 0.45% NACL 25,000 units in 500 mls @ 20 mls/hr 05/31/17 21 :30 06/01/17 10:06 Heparin-1/2ns 25,000 Units/500 IVPB 750 units/hr TITR ITZEL 15 mls/hr Protocol Administration 1,000 UNITS/HR Echo 05/31/17: nl LV/EF. RV tds. dilated LA/RA. large complex echodensity in RA, protrudes into IVC c/w thrombus. mod TR. RVSP 47. LE duplex: bilat DVTs (extensive RLE) Carotid dopplers: Small->mod plaques in R common carotid. No hemodynamically significant stenosis. Mod plaques L common carotid. No hemodynamically significant stenosis. ASSESSMENT/PLAN: A: 86yo woman with dementia, DVT, afib who now has RA thrombus on heparin gtt. P: RA thrombus - heparin gtt - cards following - will need CTA when Cr normalizes Bilateral DVT - heparin gtt Syncope - continous cardiac monitoring - orthostatic vital signs - Carotid dopplers as above elevated troponin - Likely demand ischemia - cards following afib - atenolol - heparin gtt Systolic heart failure - hypovolemic hold lasix, - strict i/o - daily weights THO - repeat Cr 1.3 baseline 1.1, likely prerenal - urine lytes pending - hold home lasix - hold lisinopril - NS@42 Right lower extremity wound - continue xeroform and sterile gauze leukocytosis - wbc 13.5, pt is afebrile, pending am labs, follow up blood and urine cultures - moist cough noted on exam, repeat cxr Dementia - continue donepezil FEN - NS @ 42mL/hr - replete prn - Low Na diet PPX - heparin gtt - PT Dispo: Transfer to [facility] for telemetry monitoring. Full code. Visit type - Emergency Visit Emergency Visit: Yes ED Registration Date: 05/31/17 Care time: The patient presented to the Emergency Department on the above date and was hospitalized for further evaluation of their emergent condition. - New Patient This patient is new to me today: Yes Date on this admission: 06/01/17 - Critical Care Critical Care patient: No
[2017-06-01 10:27] LABS: PLATELET ESTIMATE ADEQUATE
[2017-06-01] MEDS: INSULIN SLIDING SCALE (NOVOLOG) 1 VIAL SQ SCH ×2 (16:34→21:32)
[2017-06-01] MEDS ORDERED: PT OWN MED DRAWER 7, Y5N ONE (16:44)
[2017-06-01] MEDS: DONEPEZIL HCL 5 MG TABLET (FP) PO SCH (21:32)
[2017-06-02] MEDS: HEPARIN SOD,PORK IN 0.45% NACL 25,000 UNITS/500 ML INFUS.BAG IVPB SCH ×3 (00:56→21:32)
[2017-06-02] MEDS: SODIUM CHLORIDE 1,000 ML IV SCH ×2 (00:56→06:16)
[2017-06-02] MEDS: INSULIN SLIDING SCALE (NOVOLOG) 1 VIAL SQ SCH ×5 (06:14→21:08)
--- NOTE | 2017-06-02 08:49 | PN ---
Progress Note, Physician Chief Complaint: syncope History of Present Illness: denies sob, cp, palpitations, syncope coughing, no phlegm no cigs - Current Medication List Current Medications: Active Medications Atenolol (Tenormin -) 50 mg PO DAILY [facility] Last Admin: 06/01/17 10:00 Dose: 50 mg Donepezil HCl (Aricept -) 5 mg PO HS [facility] Last Admin: 06/01/17 21:32 Dose: 5 mg Heparin Sodium (Porcine) (Heparin -) 1,000 unit IVPUSH PRN PRN PRN Reason: Heparin Heparin Sodium (Porcine) (Heparin -) 5,000 unit IVPUSH PRN PRN PRN Reason: Heparin Last Admin: 06/01/17 00:27 Dose: 5,000 unit Sodium Chloride (Normal Saline -) 1,000 mls @ 42 mls/hr IV ASDIR IT[facility] Last Admin: 06/02/17 06:16 Dose: 42 mls/hr HEPARIN SOD,PORK IN 0.45% NACL (Heparin-1/2ns 25,000 Units/500) 25,000 units in 500 mls @ 20 mls/hr IVPB TITR ITZEL; 1,000 UNITS/HR PRN Reason: Protocol Last Admin: 06/02/17 00:56 Dose: Not Given Insulin Aspart (Novolog Vial Sliding Scale -) 1 vial SQ ACHS [facility] PRN Reason: Protocol Last Admin: 06/02/17 06:14 Dose: Not Given - Objective Vital Signs: Vital Signs Temperature 97.7 F 06/02/17 06:00 Pulse Rate 90 06/02/17 07:38 Respiratory Rate 20 06/02/17 06:00 Blood Pressure 123/64 06/02/17 07:38 O2 Sat by Pulse Oximetry (%) 99 06/01/17 21:00 Constitutional: Yes: No Distress, Calm Eyes: No: Sclera Icterus HENT: No: Nasal Congestion Cardiovascular: Yes: Regular Rate and Rhythm, S1, S2, Other (PMI non diplaced). No: JVD, Gallop, Murmur Respiratory: Yes: CTA Bilaterally. No: Accessory Muscle Use, Rales, Wheezes Gastrointestinal: Yes: Normal Bowel Sounds, Soft. No: Tenderness Musculoskeletal: Yes: Other (No kyphosis) Extremities: No: Cold, Cyanosis Edema: No Integumentary: No: Jaundice Neurological: Yes: Alert. No: Seizure Psychiatric: No: Agitated Labs: INR, PTT INR 1.33 (0.82-1.09) H 05/30/17 15:30 - ....Imaging EKG: Other (tele: AF, good HR) Assessment/Plan Echo 05/31/17: nl LV/EF. RV tds. dilated LA/RA. large complex echodensity in RA, protrudes into IVC c/w thrombus. mod TR. RVSP 47. LE duplex: bilat DVTs (extensive RLE) 86 year-old female with a PMH significant for HTN, atrial fibrillation off a/c x 3 weeks, ? systolic heart failure, carotid artery disease, venous stasis ulcers, and dementia. + upper respiratory symptoms, including a dry cough, x 10 days. At PMD office on DOA she became cold and clammy and she had a brief episode of unresponsiveness. Her blood pressure was noted to be low. Returned to baseline mental status. In the ED, the patient was at her baseline mental status. Patient was taken off Xarelto three weeks ago following a fall and injury to her right leg causing a hematoma which required surgical incision at [facility]. extensive LE DVT, RA thrombus: -probable thrombus in RA, extending from IVC. likely from extensive RLE thrombus , in transit. -DVT ? provoked, given recent fall with injury and surgical procedure (? duration of hospitalization/immobilization since) -remains clinically stable. -creat improved with fluids, GFR 40s now--CTA today [in case of later questions arising regarding duration of AC (falls history noted)]. -for now, continue UFH as doing -if she remains clinically stable, will rec repeat imaging after 2-4 weeks of AC , expect thrombus to organize and/or break up -rec malignancy w/u including for renal cell carcinoma (will start with renal sono). rec hematology consult syncope: -brief LOC with hypotension on DOA at PMD office -likely sec to PE or ? right sided cardiac output obstruction from RA mass -transient sx's, hemodynamically stable since -mgmt plan as above -not orthostatic here Afib: -HR controlled, cont atenolol -AC as above HTN: -bp controlled, same meds THO: -likely vol depleted/prerenal -numbers improving with IVF
[2017-06-02 08:50] LABS: BASO % 0.7 % (0-2.0); EOS % 0.3 % (0-4.5); HEMATOCRIT 32.8 % (32.4-45.2); HEMOGLOBIN 10.6 GM/dL (10.7-15.3); LYMPH % 21.3 % (8-40); MCHC 32.1 g/dl (32.0-36.0); MEAN CELL VOLUME 87.2 fl (80-96); MONO % 9.6 % (3.8-10.2); NEUT % 68.1 % (42.8-82.8); PLATELET COUNT 222 K/MM3 (134-434); RBC 3.77 M/mm3 (3.60-5.2); RDW 14.7 % (11.6-15.6); WHITE BLOOD COUNT 13.4 K/mm3 (4.0-10.0)
[2017-06-02 08:55] LABS: ALBUMIN 2.3 g/dl (3.4-5.0); ALK PHOS 80 U/L (45-117); ANION GAP 7 (8-16); BILIRUBIN,TOTAL 0.9 mg/dL (0.2-1.0); BLOOD UREA NITROGEN 16 mg/dL (7-18); CALCIUM 7.5 mg/dL (8.5-10.1); CHLORIDE 109 mmol/L (98-107); CO2 26 mmol/L (21-32); CREATININE 1.2 mg/dL (0.55-1.02); GLUCOSE,RANDOM 127 mg/dL (74-106); POTASSIUM 4.4 mmol/L (3.5-5.1); SGOT/AST 11 U/L (15-37); SGPT/ALT 11 U/L (12-78); SODIUM 142 mmol/L (136-145); TOT PROT 5.6 g/dl (6.4-8.2)
[2017-06-02] MEDS: ATENOLOL 50 MG TABLET (FP) PO SCH (09:16)
--- NOTE | 2017-06-02 09:54 | PN ---
Physical Exam: SUBJECTIVE: Patient seen and examined Reports RLE pain improving,c/o persistent cough, non- productive, denies cp, sob, palpitations, abdominal pain, N/V/D or urinary symptoms. OBJECTIVE: Vital Signs Period Temp Pulse Resp BP Sys/Valerio Pulse Ox Last 24 Hr 97.7 F-98.4 F 90-114 18-20 101-149/54-89 99-100 GENERAL: The patient is awake, alert, and follows commands, no acute distress. HEAD: Normal with no signs of trauma. EYES: PERRL, extraocular movements intact, sclera anicteric, conjunctiva clear. No ptosis. ENT: Ears normal, nares patent, oropharynx clear without exudates, moist mucous membranes. NECK: Trachea midline, full range of motion, supple. LUNGS: Breath sounds equal, clear to auscultation bilaterally, no wheezes, no crackles, no accessory muscle use. HEART: Irregular rate and rhythm,without murmur, rub or gallop. ABDOMEN: Soft, nontender, nondistended, normoactive bowel sounds, no guarding, no rebound, no hepatosplenomegaly, no masses. EXTREMITIES: 2+ pulses, warm, well-perfused, no edema. NEUROLOGICAL: Cranial nerves II through XII grossly intact. Normal speech, gait not observed. PSYCH: Normal mood, normal affect. SKIN: Warm, dry, normal turgor, RLE wound intact with dsg Laboratory Results - last 24 hr 06/01/17 06/01/17 06/01/17 08:52 16:32 21:31 WBC RBC Hgb Hct MCV MCH MCHC RDW Plt Count MPV Neutrophils % Neutrophils % (Manual) 74.0 Band Neutrophils % 4.0 Lymphocytes % Lymphocytes % (Manual) 18.0 Monocytes % Monocytes % (Manual) 4 Eosinophils % Basophils % Platelet Estimate Adequate PTT (Actin FS) Sodium Potassium Chloride Carbon Dioxide Anion Gap BUN Creatinine Creat Clearance w eGFR POC Glucometer 209 235 Random Glucose Calcium Total Bilirubin AST ALT Alkaline Phosphatase Troponin I Total Protein Albumin 06/02/17 06/02/17 06/02/17 06:13 07:40 07:40 WBC 13.4 H RBC 3.77 Hgb 10.6 L Hct 32.8 MCV 87.2 MCH 28.0 MCHC 32.1 RDW 14.7 Plt Count 222 MPV 9.0 Neutrophils % 68.1 Neutrophils % (Manual) Band Neutrophils % Lymphocytes % 21.3 Lymphocytes % (Manual) Monocytes % 9.6 Monocytes % (Manual) Eosinophils % 0.3 Basophils % 0.7 Platelet Estimate PTT (Actin FS) 53.1 H Sodium Potassium Chloride Carbon Dioxide Anion Gap BUN Creatinine Creat Clearance w eGFR POC Glucometer 122 Random Glucose Calcium Total Bilirubin AST ALT Alkaline Phosphatase Troponin I Total Protein Albumin 06/02/17 06/02/17 07:40 07:40 WBC RBC Hgb Hct MCV MCH MCHC RDW Plt Count MPV Neutrophils % Neutrophils % (Manual) Band Neutrophils % Lymphocytes % Lymphocytes % (Manual) Monocytes % Monocytes % (Manual) Eosinophils % Basophils % Platelet Estimate PTT (Actin FS) Sodium 142 Potassium 4.4 Chloride 109 H Carbon Dioxide 26 Anion Gap 7 L BUN 16 Creatinine 1.2 H Creat Clearance w eGFR 42.70 POC Glucometer Random Glucose 127 H Calcium 7.5 L Total Bilirubin 0.9 D AST 11 L D ALT 11 L D Alkaline Phosphatase 80 Troponin I Cancelled Total Protein 5.6 L Albumin 2.3 L Active Medications Generic Name Dose Route Start Last Admin Trade Name Freq PRN Reason Stop Dose Admin Atenolol 50 mg 05/31/17 10:00 06/02/17 09:16 Tenormin - PO 50 mg DAILY ITZEL Administration Donepezil HCl 5 mg 05/31/17 22:00 06/01/17 21:32 Aricept - PO 5 mg HS ITZEL Administration Heparin Sodium (Porcine) 1,000 unit 05/31/17 19:18 Heparin - IVPUSH PRN PRN Heparin Heparin Sodium (Porcine) 5,000 unit 05/31/17 19:18 06/01/17 00:27 Heparin - IVPUSH 5,000 unit PRN PRN Administration Heparin Sodium Chloride 1,000 mls @ 42 mls/hr 05/30/17 23:45 06/02/17 06:16 Normal Saline - IV 42 mls/hr ASDIR ITZEL Administration HEPARIN SOD,PORK IN 0.45% NACL 25,000 units in 500 mls @ 20 mls/hr 05/31/17 21 :30 06/02/17 00:56 Heparin-1/2ns 25,000 Units/500 IVPB Not Given TITR ITZEL Protocol 1,000 UNITS/HR Insulin Aspart 1 vial 06/01/17 16:30 06/02/17 06:14 Novolog Vial Sliding Scale - SQ Not Given ACHS ITZEL Protocol * IMAGING Echo 05/31/17: nl LV/EF. RV tds. dilated LA/RA. large complex echodensity in RA, protrudes into IVC c/w thrombus. mod TR. RVSP 47. LE duplex: bilateral DVTs (extensive RLE) Carotid dopplers: Small->mod plaques in R common carotid. No hemodynamically significant stenosis.Mod plaques L common carotid. No hemodynamically significant stenosis. CXR: No acute pathology CT Head : No intracranial pathology ASSESSMENT/PLAN: This is an 86 year-old female with a PMH significant for HTN, atrial fibrillation off a/c x 3 weeks following a fall and injury to her right leg causing a hematoma which required surgical incision at [facility],systolic heart failure, carotid artery disease, venous stasis ulcers,and dementia, admitted with syncope and URI symptoms. Found to have bilateral DVTs and RA thrombus. *RA thrombus -will cont on heparin gtt - cards following - pt is allergic to Iodine,will hold off on CTA - will get pul consult and need VQ scan to r/o PE *Bilateral DVT - on heparin gtt *Syncope, possibly due to low BP/ dehydration - continuos cardiac monitoring- no cardiac events - orderd orthostatic vital signs - Carotid dopplers-No hemodynamically significant stenosis, mod stenosis * Mildly elevated troponin - Likely demand ischemia- Trop level trending down - cards following -Echo 05/31/17: nl LV/EF. RV tds. dilated LA/RA. large complex echodensity in RA , protrudes into IVC c/w thrombus. mod TR. RVSP 47. *afib- HR controlled -will cont on atenolol and heparin gtt *Systolic heart failure- hypovolemic - holding off lasix, - strict i/o - daily weights *THO - repeat Cr 1.3 baseline 1.1, likely prerenal- improving - urine lytes pending - hold home lasix - hold lisinopril - NS@42 *Right lower extremity wound - continue xeroform and sterile gauze - out pt surgical followup *leukocytosis- trending down - afebrile -Influenza ruled out - cxr- NAD - BC preliminary negative *Dementia- - continue donepezil *FEN - NS @ 42mL/hr - replete prn - Low Na diet PPX - heparin gtt - PT Visit type - Emergency Visit Emergency Visit: Yes ED Registration Date: 05/31/17 Care time: The patient presented to the Emergency Department on the above date and was hospitalized for further evaluation of their emergent condition. - New Patient This patient is new to me today: Yes Date on this admission: 06/02/17 - Critical Care Critical Care patient: No
--- NOTE | 2017-06-02 15:25 | CON.PULM ---
Consult Consult Specialty:: PULMONARY Referred by:: KARTHIK Stewart Reason for Consultation:: r/o PE - History of Present Illness Chief Complaint: shortness of breath History of Present Illness: 86yo female with h/o HTN, atrial fibrillation, CAD, LV systolic dysfunction, venous stasis ulcers, dementia who was admitted with syncopal episode. Found to have extensive RLE DVT and popliteal DVT on LLE. Per cardiology note, there was a possible RA thrombus extending from the IVC on ?echo although no final reports available. Pt denies any shortness of breath or chest pain but does report some occasional palpitations. Pt unable to provide reliable history due to her dementia. - History Source History Provided By: Patient, Medical Record Limitations to Obtaining History: Dementia - Past Medical History Cardio/Vascular: Yes: AFIB, HTN - Alcohol/Substance Use Hx Alcohol Use: No - Smoking History Smoking history: Never smoked Home Medications - Allergies Allergies/Adverse Reactions: Allergies Allergy/AdvReac Type Severity Reaction Status Date / Time iodine Allergy Verified 05/30/17 15:06 Penicillins Allergy Verified 05/30/17 15:06 donepezil AdvReac Intermediate abdominal Verified 05/30/17 15:06 pain - Home Medications Home Medications: Ambulatory Orders Cholecalciferol (Vitamin D3) [Vitamin D3] 2,000 unit PO DAILY tablet 01/22/17 Donepezil HCl [Aricept] 5 mg PO HS 05/30/17 Furosemide [Lasix] 20 mg PO BID 05/30/17 Potassium Chloride [K-Dur -] 20 meq PO BID 05/30/17 Review of Systems - Review of Systems Constitutional: denies: Chills, Fever Eyes: denies: Recent Change in Vision HENT: denies: Nasal Congestion, Throat Pain Neck: denies: Stiffness, Tenderness Cardiovascular: reports: Palpitations. denies: Chest Pain, Shortness of Breath Respiratory: denies: Cough, Hemoptysis, SOB Gastrointestinal: denies: Abdominal Pain, Nausea, Vomiting Genitourinary: denies: Dysuria, Hematuria Neurological: reports: Syncope. denies: Dizziness, Headache Physical Exam Vital Sings: Vital Signs Temperature 98.3 F 06/02/17 14:49 Pulse Rate 92 H 06/02/17 14:49 Respiratory Rate 20 06/02/17 14:49 Blood Pressure 109/69 06/02/17 14:49 O2 Sat by Pulse Oximetry (%) 99 06/02/17 09:00 Constitutional: Yes: Mild Distress (mildly tachypneic) Eyes: Yes: Conjunctiva Clear, EOM Intact HENT: Yes: Atraumatic, Normocephalic Neck: Yes: Supple, Trachea Midline Cardiovascular: Yes: Regular Rate and Rhythm Respiratory: Yes: Diminished (decreased breath sounds at the bases) ...Clubbing: No Gastrointestinal: Yes: Normal Bowel Sounds, Soft. No: Tenderness Edema: Yes Neurological: Yes: Confusion Labs: CBC, BMP 06/02/17 07:40 06/02/17 07:40 Imaging - Results Chest X-ray: Report Reviewed, Image Reviewed (no infiltrates) Problem List - Problems (1) DVT (deep venous thrombosis) Code(s): I82.409 - ACUTE EMBOLISM AND THOMBOS UNSP DEEP VN UNSP LOWER EXTREMITY (2) Right atrial thrombus Code(s): ZXR5089 - (3) IVC thrombosis Code(s): I82.220 - ACUTE EMBOLISM AND THROMBOSIS OF INFERIOR VENA CAVA (4) Acute kidney injury Code(s): N17.9 - ACUTE KIDNEY FAILURE, UNSPECIFIED (5) Elevated troponin Code(s): R74.8 - ABNORMAL LEVELS OF OTHER SERUM ENZYMES (6) Lactic acidosis Code(s): E87.2 - ACIDOSIS (7) Atrial fibrillation Code(s): I48.91 - UNSPECIFIED ATRIAL FIBRILLATION (8) CAD (coronary artery disease) Code(s): I25.10 - ATHSCL HEART DISEASE OF [place] CORONARY ARTERY W/O ANG PCTRS (9) Systolic dysfunction, left ventricle Code(s): I51.9 - HEART DISEASE, UNSPECIFIED (10) Dementia Code(s): F03.90 - UNSPECIFIED DEMENTIA WITHOUT BEHAVIORAL DISTURBANCE Assessment/Plan Extensive RLE DVT RA/IVC thrombus Likely PE Acute Kidney Injury Atrial Fibrillation +Troponins LV Systolic Dysfunction Dementia - continue anticoagulation - echocardiogram - would consult IR to evaluate for catheter directed thrombectomy/thrombolysis - O2 to keep Spo2 >90% - IVF - monitor urine output, creatinine - telemetry monitoring Thank you for this consult Rosales Villagomez MD
[2017-06-02] MEDS: DONEPEZIL HCL 5 MG TABLET (FP) PO SCH (21:03)
[2017-06-03] MEDS: INSULIN SLIDING SCALE (NOVOLOG) 1 VIAL SQ SCH ×4 (06:17→21:05)
[2017-06-03] MEDS: SODIUM CHLORIDE 1,000 ML IV SCH (06:29)
[2017-06-03 08:07] LABS: BASO % 0.5 % (0-2.0); EOS % 0.2 % (0-4.5); HEMATOCRIT 33.8 % (32.4-45.2); HEMOGLOBIN 10.5 GM/dL (10.7-15.3); LYMPH % 19.5 % (8-40); MCH 27.1 pg (25.7-33.7); MCHC 31.1 g/dl (32.0-36.0); MEAN CELL VOLUME 87.1 fl (80-96); MEAN PLT VOLUME 9.1 fl (7.5-11.1); MONO % 7.5 % (3.8-10.2); NEUT % 72.3 % (42.8-82.8); PLATELET COUNT 229 K/MM3 (134-434); RBC 3.88 M/mm3 (3.60-5.2); RDW 14.9 % (11.6-15.6); WHITE BLOOD COUNT 15.4 K/mm3 (4.0-10.0)
[2017-06-03 08:22] LABS: ANION GAP 10 (8-16); BLOOD UREA NITROGEN 16 mg/dL (7-18); CALCIUM 8.1 mg/dL (8.5-10.1); CHLORIDE 110 mmol/L (98-107); CO2 22 mmol/L (21-32); GLUCOSE,RANDOM 131 mg/dL (74-106); POTASSIUM 4.6 mmol/L (3.5-5.1); SODIUM 142 mmol/L (136-145)
[2017-06-03] MEDS ORDERED: PT OWN MED DRAWER 7, Y5N ONE ×2 (09:12→15:31)
[2017-06-03] MEDS: ATENOLOL 50 MG TABLET (FP) PO SCH (09:31)
--- NOTE | 2017-06-03 10:53 | PN ---
Progress Note, Physician Chief Complaint: syncope History of Present Illness: no cp, sob, palpit, syncope no cigs - Current Medication List Current Medications: Active Medications Atenolol (Tenormin -) 50 mg PO DAILY [facility] Last Admin: 06/03/17 09:31 Dose: 50 mg Donepezil HCl (Aricept -) 5 mg PO HS [facility] Last Admin: 06/02/17 21:03 Dose: 5 mg Heparin Sodium (Porcine) (Heparin -) 1,000 unit IVPUSH PRN PRN PRN Reason: Heparin Last Admin: 06/03/17 09:31 Dose: 1,000 unit Heparin Sodium (Porcine) (Heparin -) 5,000 unit IVPUSH PRN PRN PRN Reason: Heparin Last Admin: 06/01/17 00:27 Dose: 5,000 unit Sodium Chloride (Normal Saline -) 1,000 mls @ 42 mls/hr IV ASDIR [facility] Last Admin: 06/03/17 06:29 Dose: 42 mls/hr HEPARIN SOD,PORK IN 0.45% NACL (Heparin-1/2ns 25,000 Units/500) 25,000 units in 500 mls @ 20 mls/hr IVPB TITR ITZEL; 1,000 UNITS/HR PRN Reason: Protocol Last Titration: 06/03/17 09:33 Dose: 850 units/hr, 17 mls/hr Insulin Aspart (Novolog Vial Sliding Scale -) 1 vial SQ ACHS ITZEL PRN Reason: Protocol Last Admin: 06/03/17 06:17 Dose: Not Given - Objective Vital Signs: Vital Signs Temperature 98.3 F 06/03/17 06:00 Pulse Rate 86 06/03/17 06:00 Respiratory Rate 18 06/03/17 06:00 Blood Pressure 137/96 06/03/17 06:00 O2 Sat by Pulse Oximetry (%) 95 06/02/17 21:00 Constitutional: Yes: No Distress, Calm Eyes: No: Sclera Icterus HENT: No: Nasal Congestion Cardiovascular: Yes: Regular Rate and Rhythm, S1, S2, Other (PMI non diplaced). No: Gallop, Murmur Respiratory: Yes: CTA Bilaterally. No: Accessory Muscle Use, Rales, Wheezes Gastrointestinal: Yes: Normal Bowel Sounds, Soft. No: Tenderness Musculoskeletal: Yes: Other (No kyphosis) Extremities: No: Cyanosis Edema: No Integumentary: No: Jaundice Neurological: Yes: Alert, Oriented (x3) Psychiatric: No: Agitated Labs: CBC, BMP 06/03/17 06:30 06/03/17 06:30 INR, PTT INR 1.33 (0.82-1.09) H 05/30/17 15:30 - ....Imaging EKG: Other (tele: afib, good HR) Assessment/Plan Echo 05/31/17: nl LV/EF. RV tds. dilated LA/RA. large complex echodensity in RA, protrudes into IVC c/w thrombus. mod TR. RVSP 47. LE duplex: bilat DVTs (extensive RLE) 86 year-old female with a PMH significant for HTN, atrial fibrillation off a/c x 3 weeks, ? systolic heart failure, carotid artery disease, venous stasis ulcers, and dementia. + upper respiratory symptoms, including a dry cough, x 10 days. At PMD office on DOA she became cold and clammy and she had a brief episode of unresponsiveness. Her blood pressure was noted to be low. Returned to baseline mental status. In the ED, the patient was at her baseline mental status. Patient was taken off Xarelto three weeks ago following a fall and injury to her right leg causing a hematoma which required surgical incision at [facility]. extensive LE DVT, RA thrombus: -probable thrombus in RA, extending from IVC. likely from extensive RLE thrombus , in transit. -DVT ? provoked, given recent fall with injury and surgical procedure (? duration of hospitalization/immobilization since) -remains clinically stable. -creat improved with fluids, GFR 40s now--CTA cancelled yest due to pt with iv contrast allergy. -defer ? whether V/Q will alter mgmt to pulm consultatns -for now, continue UFH as doing, ? change to NOAC or lovenox. -if she remains clinically stable, will rec repeat imaging after 2-4 weeks of AC , expect thrombus to organize and/or break up -rec malignancy w/u including for renal cell carcinoma (start with renal sono). rec hematology consult syncope: -brief LOC with hypotension on DOA at PMD office -likely sec to PE or ? right sided cardiac output obstruction from RA mass -transient sx's, hemodynamically stable since -mgmt plan as above -not orthostatic here Afib: -HR controlled, cont atenolol -AC as above HTN: -bp controlled, same meds THO: -likely vol depleted/prerenal -numbers improving with IVF
--- NOTE | 2017-06-03 13:10 | PN ---
Progress Note, Physician History of Present Illness: PULMONARY AWAKE,COMFORTABLE,-CP,-SOB - Current Medication List Current Medications: Active Medications Atenolol (Tenormin -) 50 mg PO DAILY ITZEL Last Admin: 06/03/17 09:31 Dose: 50 mg Donepezil HCl (Aricept -) 5 mg PO HS ITZEL Last Admin: 06/02/17 21:03 Dose: 5 mg Heparin Sodium (Porcine) (Heparin -) 1,000 unit IVPUSH PRN PRN PRN Reason: Heparin Last Admin: 06/03/17 09:31 Dose: 1,000 unit Heparin Sodium (Porcine) (Heparin -) 5,000 unit IVPUSH PRN PRN PRN Reason: Heparin Last Admin: 06/01/17 00:27 Dose: 5,000 unit Sodium Chloride (Normal Saline -) 1,000 mls @ 42 mls/hr IV ASDIR ITZEL Last Admin: 06/03/17 06:29 Dose: 42 mls/hr HEPARIN SOD,PORK IN 0.45% NACL (Heparin-1/2ns 25,000 Units/500) 25,000 units in 500 mls @ 20 mls/hr IVPB TITR ITZEL; 1,000 UNITS/HR PRN Reason: Protocol Last Titration: 06/03/17 09:33 Dose: 850 units/hr, 17 mls/hr Insulin Aspart (Novolog Vial Sliding Scale -) 1 vial SQ ACHS ITZEL PRN Reason: Protocol Last Admin: 06/03/17 06:17 Dose: Not Given - Objective Vital Signs: Vital Signs Temperature 97.8 F 06/03/17 10:00 Pulse Rate 78 06/03/17 10:00 Respiratory Rate 18 06/03/17 10:00 Blood Pressure 127/72 06/03/17 10:00 O2 Sat by Pulse Oximetry (%) 97 06/03/17 10:00 Constitutional: Yes: Well Nourished, Calm Eyes: Yes: WNL HENT: Yes: WNL Neck: Yes: WNL Cardiovascular: Yes: Pulse Irregular, S1, S2 Respiratory: Yes: Diminished Gastrointestinal: Yes: Normal Bowel Sounds, Soft Extremities: Yes: WNL Edema: Yes Labs: CBC, BMP 06/03/17 06:30 06/03/17 06:30 INR, PTT INR 1.33 (0.82-1.09) H 05/30/17 15:30 Assessment/Plan Problem List - Problems (1) DVT (deep venous thrombosis) Code(s): I82.409 - ACUTE EMBOLISM AND THOMBOS UNSP DEEP VN UNSP LOWER EXTREMITY (2) Right atrial thrombus Code(s): PVX6885 - (3) IVC thrombosis Code(s): I82.220 - ACUTE EMBOLISM AND THROMBOSIS OF INFERIOR VENA CAVA (4) Acute kidney injury Code(s): N17.9 - ACUTE KIDNEY FAILURE, UNSPECIFIED (5) Elevated troponin Code(s): R74.8 - ABNORMAL LEVELS OF OTHER SERUM ENZYMES (6) Lactic acidosis Code(s): E87.2 - ACIDOSIS (7) Atrial fibrillation Code(s): I48.91 - UNSPECIFIED ATRIAL FIBRILLATION (8) CAD (coronary artery disease) Code(s): I25.10 - ATHSCL HEART DISEASE OF [place] CORONARY ARTERY W/O ANG PCTRS (9) Systolic dysfunction, left ventricle Code(s): I51.9 - HEART DISEASE, UNSPECIFIED (10) Dementia Code(s): F03.90 - UNSPECIFIED DEMENTIA WITHOUT BEHAVIORAL DISTURBANCE Assessment/Plan Extensive RLE DVT RA/IVC thrombus Likely PE Acute Kidney Injury improved Atrial Fibrillation +Troponins LV Systolic Dysfunction Dementia - anticoagulation - echocardiogram - would consult IR to evaluate for catheter directed thrombectomy/thrombolysis - O2 to keep Spo2 >90% - IVF - monitor urine output, creatinine - CHEST CTA AM DR JOSE
--- NOTE | 2017-06-03 15:36 | CONSULT ---
Consult - text type - Consultation Consultation Note: 86yo female with h/o HTN, atrial fibrillation, CAD, LV systolic dysfunction, venous stasis ulcers, dementia who was admitted with syncopal episode. Found to have extensive RLE DVT and popliteal DVT on LLE. Per cardiology note, there was a possible RA thrombus extending from the IVC on ?echo although no final reports available. Pt denies any shortness of breath or chest pain but does report some occasional palpitations. Pt unable to provide reliable history due to her dementia. Was recently admitted to [facility] aftera fall?. Xeralto held since 04/30. Now with extensie Dt. Had a recent episode of near syncope while at PMDs office last week and sent to ER for further w/u - History Source History Provided By: Patient, Medical Record Limitations to Obtaining History: Dementia - Past Medical History Cardio/Vascular: Yes: AFIB, HTN - Alcohol/Substance Use Hx Alcohol Use: No - Smoking History Smoking history: Never smoked Home Medications - Allergies Allergies/Adverse Reactions: Allergies Allergy/AdvReac Type Severity Reaction Status Date / Time iodine Allergy Verified 05/30/17 15:06 Penicillins Allergy Verified 05/30/17 15:06 donepezil AdvReac Intermediate abdominal Verified 05/30/17 15:06 pain - Home Medications Home Medications: Ambulatory Orders Cholecalciferol (Vitamin D3) [Vitamin D3] 2,000 unit PO DAILY tablet 01/22/17 Donepezil HCl [Aricept] 5 mg PO HS 05/30/17 Furosemide [Lasix] 20 mg PO BID 05/30/17 Potassium Chloride [K-Dur -] 20 meq PO BID 05/30/17 Physical Exam Vital Sings: Last Vital Signs Temp Pulse Resp BP Pulse Ox 97.9 F 87 20 130/63 97 06/03/17 14:12 06/03/17 14:12 06/03/17 14:12 06/03/17 14:12 06/03/17 10:00 Eyes: Yes: Conjunctiva Clear, EOM Intact HENT: Yes: Atraumatic, Normocephalic Neck: Yes: Supple, Trachea Midline Cardiovascular: Yes: Regular Rate and Rhythm Respiratory: Yes: Diminished (decreased breath sounds at the bases) Gastrointestinal: Yes: Normal Bowel Sounds, Soft. No: Tenderness Edema: Yes Abnormal Lab Results 06/03/17 06/03/17 06/03/17 06:30 06:30 06:30 WBC 15.4 H Hgb 10.5 L MCHC 31.1 L PTT (Actin FS) 45.0 H Chloride 110 H Random Glucose 131 H Calcium 8.1 L Active Medications Generic Name Dose Route Start Last Admin Trade Name Freq PRN Reason Stop Dose Admin Atenolol 50 mg 05/31/17 10:00 06/03/17 09:31 Tenormin - PO 50 mg DAILY ITZEL Administration Diphenhydramine HCl 50 mg 06/03/17 13:18 Benadryl - PO 06/03/17 13:19 ONCE ONE Donepezil HCl 5 mg 05/31/17 22:00 06/02/17 21:03 Aricept - PO 5 mg HS ITZEL Administration Heparin Sodium (Porcine) 1,000 unit 05/31/17 19:18 06/03/17 09:31 Heparin - IVPUSH 1,000 unit PRN PRN Administration Heparin Heparin Sodium (Porcine) 5,000 unit 05/31/17 19:18 06/01/17 00:27 Heparin - IVPUSH 5,000 unit PRN PRN Administration Heparin Sodium Chloride 1,000 mls @ 42 mls/hr 05/30/17 23:45 06/03/17 06:29 Normal Saline - IV 42 mls/hr ASDIR ITZEL Administration HEPARIN SOD,PORK IN 0.45% NACL 25,000 units in 500 mls @ 20 mls/hr 05/31/17 21 :30 06/03/17 15:33 Heparin-1/2ns 25,000 Units/500 IVPB 850 units/hr TITR ITZEL 17 mls/hr Protocol Titration 1,000 UNITS/HR Insulin Aspart 1 vial 06/01/17 16:30 06/03/17 12:00 Novolog Vial Sliding Scale - SQ 6 units ACHS ITZEL Administration Protocol Prednisone 50 mg 06/03/17 19:00 Deltasone - PO TID@0200,0700,1900 PENDING SALE TO [facility] Assessment/Plan Extensive RLE DVT RA/IVC thrombus Likely PE Acute Kidney Injury Atrial Fibrillation +Troponins LV Systolic Dysfunction Dementia Was off xeralto sice 04/30 when she had a fall and was admitted to [facility] until day before stephen. Has been off xeralto and developed extensive DVT/Rt. atrial clot Getting w/u for occult malignancy agree with heparin drip
--- NOTE | 2017-06-03 17:41 | PN ---
Physical Exam: SUBJECTIVE: Patient seen and examined. She states she feels "mixed" and has RLE pain. OBJECTIVE: Vital Signs Period Temp Pulse Resp BP Sys/Valerio Pulse Ox Last 24 Hr 97.8 F-99.1 F 78-91 18-20 126-148/63-96 95-97 PE Neuro: alert, awake, cn 2-12intact Pulm: basilar rhonchi + wet cough mild tachypnea CV: s1 s2 irregular rhythm Abd: s nt nd + bs ExT: RLE incision packed, CDI + tenderness Laboratory Results - last 24 hr 06/02/17 06/03/17 06/03/17 21:07 06:07 06:30 WBC RBC Hgb Hct MCV MCH MCHC RDW Plt Count MPV Neutrophils % Lymphocytes % Monocytes % Eosinophils % Basophils % PTT (Actin FS) 45.0 H Sodium Potassium Chloride Carbon Dioxide Anion Gap BUN Creatinine POC Glucometer 146 139 Random Glucose Calcium 06/03/17 06/03/17 06/03/17 06:30 06:30 11:52 WBC 15.4 H RBC 3.88 Hgb 10.5 L Hct 33.8 MCV 87.1 MCH 27.1 MCHC 31.1 L RDW 14.9 Plt Count 229 MPV 9.1 Neutrophils % 72.3 Lymphocytes % 19.5 Monocytes % 7.5 Eosinophils % 0.2 Basophils % 0.5 PTT (Actin FS) Sodium 142 Potassium 4.6 Chloride 110 H Carbon Dioxide 22 Anion Gap 10 BUN 16 Creatinine 1.0 POC Glucometer 247 Random Glucose 131 H Calcium 8.1 L Active Medications Generic Name Dose Route Start Last Admin Trade Name Freq PRN Reason Stop Dose Admin Atenolol 50 mg 05/31/17 10:00 06/03/17 09:31 Tenormin - PO 50 mg DAILY ITZEL Administration Diphenhydramine HCl 50 mg 06/03/17 13:18 Benadryl - PO 06/03/17 13:19 ONCE ONE Donepezil HCl 5 mg 05/31/17 22:00 06/02/17 21:03 Aricept - PO 5 mg HS ITZEL Administration Heparin Sodium (Porcine) 1,000 unit 05/31/17 19:18 06/03/17 09:31 Heparin - IVPUSH 1,000 unit PRN PRN Administration Heparin Heparin Sodium (Porcine) 5,000 unit 05/31/17 19:18 06/01/17 00:27 Heparin - IVPUSH 5,000 unit PRN PRN Administration Heparin Sodium Chloride 1,000 mls @ 42 mls/hr 05/30/17 23:45 06/03/17 06:29 Normal Saline - IV 42 mls/hr ASDIR ITZEL Administration HEPARIN SOD,PORK IN 0.45% NACL 25,000 units in 500 mls @ 20 mls/hr 05/31/17 21 :30 06/03/17 15:33 Heparin-1/2ns 25,000 Units/500 IVPB 850 units/hr TITR ITZEL 17 mls/hr Protocol Titration 1,000 UNITS/HR Insulin Aspart 1 vial 06/01/17 16:30 06/03/17 17:19 Novolog Vial Sliding Scale - SQ 4 units ACHS ITZEL Administration Protocol Prednisone 50 mg 06/03/17 19:00 Deltasone - PO TID@0200,0700,1900 [facility] Imaging: - ECHO 05/31/17: nl LV/EF. RV tds. dilated LA/RA. large complex echodensity in RA , protrudes into IVC c/w thrombus. mod TR. RVSP 47. Assessment: 86 year-old female with a PMH significant for HTN, Afib off a/c x 3 weeks following a fall and injury to her right leg causing a hematoma which required surgical incision at [facility],systolic heart failure, carotid artery disease, venous stasis ulcers,and dementia, admitted with syncope and URI symptoms. Found to have bilateral DVTs and RA thrombus. Plan: 1. RA thrombus, ?PE - Maintain heparin gtt - Hematology to weight in re AC - VQ scan ordered d/t iodine allergy and CTA - Chest CTA will need to be discontinued, will d/w pulm - IR consulted for possible thrombectomy - Rule out renal CA, Renal US ordered - Prednisone per Pulm 2. Bilateral LE DVT - Maintain heparin gtt 3. Syncope - Possible PE induced vs RA mass - Negative for orthostatics, CD negative - No telemetry events 4. Leukocytosis - Likely due to DVT ? PE - Infectious micro ruled out 5. A fib - Rate controlled - Atenolol 50mg daily - Heparin gtt 6. Systolic heart failure - Not in exacerbation - Hold lasix 7. THO - Improved - Continue gentle IVF - Hold lasix/JAM 8. Right lower extremity wound - Continue xeroform and sterile gauze - Surgery follow up as outpt 9. Dementia - Continue Donepezil 10. PPX - Heparin gtt - PT 11. DM II - ISS, BGM ACHS Visit type - Emergency Visit Emergency Visit: Yes ED Registration Date: 05/31/17 Care time: The patient presented to the Emergency Department on the above date and was hospitalized for further evaluation of their emergent condition. - New Patient This patient is new to me today: Yes Date on this admission: 06/03/17 - Critical Care Critical Care patient: No
[2017-06-03] MEDS: predniSONE 10 MG TABLET (UD) PO SCH (19:00)
[2017-06-03] MEDS: HEPARIN SOD,PORK IN 0.45% NACL 25,000 UNITS/500 ML INFUS.BAG IVPB SCH (20:41)
[2017-06-03] MEDS: DONEPEZIL HCL 5 MG TABLET (FP) PO SCH (21:05)
[2017-06-04] MEDS: SODIUM CHLORIDE 1,000 ML IV SCH ×3 (01:12→23:20)
[2017-06-04] MEDS: predniSONE 10 MG TABLET (UD) PO SCH ×3 (01:12→19:57)
[2017-06-04] MEDS: INSULIN SLIDING SCALE (NOVOLOG) 1 VIAL SQ SCH ×4 (06:10→22:57)
[2017-06-04 07:42] LABS: BASO % 0.2 % (0-2.0); HEMATOCRIT 33.9 % (32.4-45.2); HEMOGLOBIN 10.5 GM/dL (10.7-15.3); LYMPH % 8.9 % (8-40); MCH 27.1 pg (25.7-33.7); MEAN CELL VOLUME 87.4 fl (80-96); MEAN PLT VOLUME 9.5 fl (7.5-11.1); MONO % 1.2 % (3.8-10.2); NEUT % 89.7 % (42.8-82.8); PLATELET COUNT 245 K/MM3 (134-434); RBC 3.87 M/mm3 (3.60-5.2); RDW 15.3 % (11.6-15.6); WHITE BLOOD COUNT 14.1 K/mm3 (4.0-10.0)
[2017-06-04 08:14] LABS: ALBUMIN 2.3 g/dl (3.4-5.0); ANION GAP 10 (8-16); BLOOD UREA NITROGEN 19 mg/dL (7-18); CALCIUM 8.4 mg/dL (8.5-10.1); CHLORIDE 110 mmol/L (98-107); CO2 20 mmol/L (21-32); GLUCOSE,RANDOM 202 mg/dL (74-106); MAGNESIUM 2.4 mg/dL (1.8-2.4); POTASSIUM 5.1 mmol/L (3.5-5.1); SODIUM 140 mmol/L (136-145)
[2017-06-04 08:17] LABS: ALK PHOS 82 U/L (45-117); BILIRUBIN,TOTAL 0.9 mg/dL (0.2-1.0); PHOSPHOROUS 4.1 mg/dL (2.5-4.9); SGOT/AST 13 U/L (15-37); SGPT/ALT 11 U/L (12-78); TOT PROT 6.1 g/dl (6.4-8.2)
[2017-06-04] MEDS ORDERED: diphenhydrAMINE HCL 25 MG CAPSULE (FP) PO ONE (08:45)
[2017-06-04] MEDS: HEPARIN SOD,PORK IN 0.45% NACL 25,000 UNITS/500 ML INFUS.BAG IVPB SCH ×2 (09:10→22:57)
--- NOTE | 2017-06-04 10:34 | PN ---
Progress Note (short form) - Note Progress Note: Pt seen and examined. ROS unobtainable due to pts condition. O/E: General: NAD,alert and awake Eyes: Yes: Conjunctiva Clear, EOM Intact HENT: Yes: Atraumatic, Normocephalic Neck: Yes: Supple, Trachea Midline Cardiovascular: Yes: Regular Rate and Rhythm Respiratory: Yes: Diminished (decreased breath sounds at the bases) Gastrointestinal: Yes: Normal Bowel Sounds, Soft. No: Tenderness Edema: Yes Last Vital Signs Temp Pulse Resp BP Pulse Ox 98 F 83 20 108/70 97 06/04/17 09:01 06/04/17 09:01 06/04/17 09:01 06/04/17 09:01 06/04/17 09:00 CBC, BMP 06/04/17 05:35 06/04/17 05:35 Current Medications Generic Name Dose Route Start Last Admin Trade Name Freq PRN Reason Stop Dose Admin Atenolol 50 mg 05/31/17 10:00 06/03/17 09:31 Tenormin - PO 50 mg DAILY ITZEL Administration Donepezil HCl 5 mg 05/31/17 22:00 06/03/17 21:05 Aricept - PO 5 mg HS ITZEL Administration Heparin Sodium (Porcine) 1,000 unit 05/31/17 19:18 06/03/17 09:31 Heparin - IVPUSH 1,000 unit PRN PRN Administration Heparin Heparin Sodium (Porcine) 5,000 unit 05/31/17 19:18 06/01/17 00:27 Heparin - IVPUSH 5,000 unit PRN PRN Administration Heparin Sodium Chloride 1,000 mls @ 42 mls/hr 05/30/17 23:45 06/04/17 01:12 Normal Saline - IV Not Given ASDIR ITZEL HEPARIN SOD,PORK IN 0.45% NACL 25,000 units in 500 mls @ 20 mls/hr 05/31/17 21 :30 06/04/17 09:10 Heparin-1/2ns 25,000 Units/500 IVPB 850 units/hr TITR ITZEL 17 mls/hr Protocol Administration 1,000 UNITS/HR Insulin Aspart 1 vial 06/01/17 16:30 06/04/17 06:10 Novolog Vial Sliding Scale - SQ 4 units ACHS ITZEL Administration Protocol Prednisone 50 mg 06/03/17 19:00 06/04/17 06:09 Deltasone - PO 50 mg TID@0200,0700,1900 ITZEL Administration RLE,LLE DVT RA thrombus extensive PE RUL mass suspicious for malignancy Atrial Fibrillation +Troponins LV Systolic Dysfunction ?Renal mass Dementia Was off xeralto sice 04/30 when she had a fall and was admitted to [facility] until day before [place]. Has been off xeralto and developed extensive DVT/Rt. atrial clot likely from an underlying malignancy causing a hypercoagulable state. ?Lung mass suspicious for neoplastic process has a ?renal mass. would recommend CT a/p with contrast ( monitor Cr ) likely in next 48 hrs , with pre-hydration and pre meds. agree with heparin drip for now, will need to consider LMWH therapeutic dose for shelter. Pulm c/s noted, ?consideration for thrombolysis for labs will follow
[2017-06-04] MEDS: ATENOLOL 50 MG TABLET (FP) PO SCH (11:27)
--- NOTE | 2017-06-04 11:31 | PN ---
Progress Note (short form) - Note Progress Note: Chief Complaint: syncope History of Present Illness: On IVF. hgb stable on heparin drip. PE protocol CT images and report reviewed. Extensive bilateral PE. no cp, sob, palpit, syncope no cigs Current Medications Atenolol (Tenormin -) 50 mg PO DAILY [facility] Last Admin: 06/04/17 11:27 Dose: 50 mg Donepezil HCl (Aricept -) 5 mg PO HS [facility] Last Admin: 06/03/17 21:05 Dose: 5 mg Heparin Sodium (Porcine) (Heparin -) 1,000 unit IVPUSH PRN PRN PRN Reason: Heparin Last Admin: 06/03/17 09:31 Dose: 1,000 unit Heparin Sodium (Porcine) (Heparin -) 5,000 unit IVPUSH PRN PRN PRN Reason: Heparin Last Admin: 06/01/17 00:27 Dose: 5,000 unit Sodium Chloride (Normal Saline -) 1,000 mls @ 42 mls/hr IV ASDIR [facility] Last Admin: 06/04/17 01:12 Dose: Not Given HEPARIN SOD,PORK IN 0.45% NACL (Heparin-1/2ns 25,000 Units/500) 25,000 units in 500 mls @ 20 mls/hr IVPB TITR ITZEL; 1,000 UNITS/HR PRN Reason: Protocol Last Admin: 06/04/17 09:10 Dose: 850 units/hr, 17 mls/hr Insulin Aspart (Novolog Vial Sliding Scale -) 1 vial SQ ACHS ITZEL PRN Reason: Protocol Last Admin: 06/04/17 06:10 Dose: 4 units Prednisone (Deltasone -) 50 mg PO TID@0200,0700,1900 [facility] Last Admin: 06/04/17 06:09 Dose: 50 mg - Objective Vital Signs: Vital Signs - 24 hr 06/03/17 06/03/17 06/03/17 14:12 18:00 21:00 Temperature 97.9 F 97.7 F Pulse Rate 87 92 H Respiratory 20 20 20 Rate Blood Pressure 130/63 142/78 O2 Sat by Pulse 97 Oximetry (%) 06/03/17 06/04/17 06/04/17 22:00 02:00 06:00 Temperature 98.9 F 97.6 F 97.4 F L Pulse Rate 75 83 96 H Respiratory 20 20 20 Rate Blood Pressure 139/86 140/82 138/94 O2 Sat by Pulse 97 Oximetry (%) 06/04/17 06/04/17 09:00 09:01 Temperature 98 F Pulse Rate 83 Respiratory 20 20 Rate Blood Pressure 108/70 O2 Sat by Pulse 97 Oximetry (%) Intake & Output 06/02/17 06/03/17 06/04/17 06/05/17 07:59 07:59 07:59 07:59 Intake Total 909 1608 708 Balance 909 1608 708 Constitutional: Yes: No Distress, Calm Eyes: No: Sclera Icterus HENT: No: Nasal Congestion Cardiovascular: Yes: Regular Rate and Rhythm, S1, S2, Other (PMI non diplaced). No: Gallop, Murmur Respiratory: Yes: CTA Bilaterally. No: Accessory Muscle Use, Rales, Wheezes Gastrointestinal: Yes: Normal Bowel Sounds, Soft. No: Tenderness Musculoskeletal: Yes: Other (No kyphosis) Extremities: No: Cyanosis Edema: No Integumentary: No: Jaundice Neurological: Yes: Alert, Oriented (x3) Psychiatric: No: Agitated Labs: CBC, BMP 06/04/17 05:35 06/04/17 05:35 Laboratory Tests 06/04/17 06/04/17 05:35 05:35 Hemoglobin A1c % 6.9 H D Magnesium 2.4 Total Bilirubin 0.9 AST 13 L Alkaline Phosphatase 82 Albumin 2.3 L - ....Imaging EKG: Other (tele: afib, good HR) Assessment/Plan Echo 05/31/17: nl LV/EF. RV tds. dilated LA/RA. large complex echodensity in RA, protrudes into IVC c/w thrombus. mod TR. RVSP 47. CTA: extensive bilateral PE. 1 cm RUL mass suspicious for malignancy. Small bilateral pleural effusions and basilar atelectasis R>L. LE duplex: bilat DVTs (extensive RLE) 86 year-old female with a PMH significant for HTN, atrial fibrillation off a/c x 3 weeks, ? systolic heart failure, carotid artery disease, venous stasis ulcers, and dementia. + upper respiratory symptoms, including a dry cough, x 10 days. At PMD office on DOA she became cold and clammy and she had a brief episode of unresponsiveness. Her blood pressure was noted to be low. Returned to baseline mental status. In the ED, the patient was at her baseline mental status. Patient was taken off Xarelto three weeks ago following a fall and injury to her right leg causing a hematoma which required surgical incision at [facility]. extensive LE DVT, RA thrombus: -probable thrombus in RA, extending from IVC. likely from extensive RLE thrombus , in transit in setting of both extensive bilateral DVT (? provoked, given recent fall with injury and surgical procedure) and extensive bilateral PE with concern for RUL malignancy. - RV not well seen on echo but remains hemodynamically stable, oxygenating well. Tolerating AC. No strong indication for either ivc placement or thrombolysis at this time. However, given intracardiac thrombus and extensive clot burden, she is at risk for clincial deterioration. can consider need for thrombolysis if she decompensates clinically. Would confirm no brain mets or recent cva since those clinical scenarios would be contraindications to thrombolytic thearpy. -for now, continue UFH as doing, ? change to NOAC or lovenox now that creatinine has improved, will defer to hematology. . -if she remains clinically stable, will rec repeat imaging after 2-4 weeks of AC , expect thrombus to organize and/or break up - malignancy w/u per hematology consult syncope: -brief LOC with hypotension on DOA at PMD office -likely sec to PE or ? right sided cardiac output obstruction from RA mass -transient sx's, hemodynamically stable since -mgmt plan as above -not orthostatic here Afib: -HR controlled, cont atenolol -AC as above HTN: -bp controlled, same meds THO: -likely vol depleted/prerenal -numbers improved s/p IVF
--- NOTE | 2017-06-04 11:34 | PN ---
Progress Note, Physician History of Present Illness: pulmonary alert,comfortable,-resp distress. chest cta large deanne pulmonary emboli,rul mass - Current Medication List Current Medications: Active Medications Atenolol (Tenormin -) 50 mg PO DAILY [facility] Last Admin: 06/04/17 11:27 Dose: 50 mg Donepezil HCl (Aricept -) 5 mg PO HS [facility] Last Admin: 06/03/17 21:05 Dose: 5 mg Heparin Sodium (Porcine) (Heparin -) 1,000 unit IVPUSH PRN PRN PRN Reason: Heparin Last Admin: 06/03/17 09:31 Dose: 1,000 unit Heparin Sodium (Porcine) (Heparin -) 5,000 unit IVPUSH PRN PRN PRN Reason: Heparin Last Admin: 06/01/17 00:27 Dose: 5,000 unit Sodium Chloride (Normal Saline -) 1,000 mls @ 42 mls/hr IV ASDIR [facility] Last Admin: 06/04/17 01:12 Dose: Not Given HEPARIN SOD,PORK IN 0.45% NACL (Heparin-1/2ns 25,000 Units/500) 25,000 units in 500 mls @ 20 mls/hr IVPB TITR ITZEL; 1,000 UNITS/HR PRN Reason: Protocol Last Admin: 06/04/17 09:10 Dose: 850 units/hr, 17 mls/hr Insulin Aspart (Novolog Vial Sliding Scale -) 1 vial SQ ACHS [facility] PRN Reason: Protocol Last Admin: 06/04/17 06:10 Dose: 4 units Prednisone (Deltasone -) 50 mg PO TID@0200,0700,1900 [facility] Last Admin: 06/04/17 06:09 Dose: 50 mg - Objective Vital Signs: Vital Signs Temperature 98 F 06/04/17 09:01 Pulse Rate 83 06/04/17 09:01 Respiratory Rate 20 06/04/17 09:01 Blood Pressure 108/70 06/04/17 09:01 O2 Sat by Pulse Oximetry (%) 97 06/04/17 09:00 Constitutional: Yes: Well Nourished, Calm Eyes: Yes: WNL HENT: Yes: WNL Neck: Yes: WNL Cardiovascular: Yes: Pulse Irregular, S1, S2 Respiratory: Yes: Diminished Gastrointestinal: Yes: Normal Bowel Sounds, Soft Extremities: Yes: WNL, Erythema Edema: Yes Labs: CBC, BMP 06/04/17 05:35 06/04/17 05:35 INR, PTT INR 1.33 (0.82-1.09) H 05/30/17 15:30 - ....Imaging Cat Scan: Report Reviewed, Image Reviewed (LARGE DEANNE PUMONARY EMBOLI,RUL MASS) Assessment/Plan Problem List - Problems (1) DVT (deep venous thrombosis) Code(s): I82.409 - ACUTE EMBOLISM AND THOMBOS UNSP DEEP VN UNSP LOWER EXTREMITY (2) Right atrial thrombus Code(s): NJA6088 - (3) IVC thrombosis Code(s): I82.220 - ACUTE EMBOLISM AND THROMBOSIS OF INFERIOR VENA CAVA (4) Acute kidney injury Code(s): N17.9 - ACUTE KIDNEY FAILURE, UNSPECIFIED (5) Elevated troponin Code(s): R74.8 - ABNORMAL LEVELS OF OTHER SERUM ENZYMES (6) Lactic acidosis Code(s): E87.2 - ACIDOSIS (7) Atrial fibrillation Code(s): I48.91 - UNSPECIFIED ATRIAL FIBRILLATION (8) CAD (coronary artery disease) Code(s): I25.10 - ATHSCL HEART DISEASE OF [place] CORONARY ARTERY W/O ANG PCTRS (9) Systolic dysfunction, left ventricle Code(s): I51.9 - HEART DISEASE, UNSPECIFIED (10) Dementia Code(s): F03.90 - UNSPECIFIED DEMENTIA WITHOUT BEHAVIORAL DISTURBANCE Assessment/Plan Extensive RLE DVT,,LLE Large Bilateral pulmonary emboli main pulmonary arteries RA/IVC thrombus Likely PE Acute Kidney Injury improved Atrial Fibrillation +Troponins LV Systolic Dysfunction Dementia RUL Nodule/mass - anticoagulation - echocardiogram - would consult IR to evaluate for catheter directed thrombectomy/thrombolysis - O2 to keep Spo2 >90% - IVF - monitor urine output, creatinine DR JOSE
--- NOTE | 2017-06-04 16:02 | PN ---
Physical Exam: SUBJECTIVE: Patient seen and examined. Pt says she feels fair. She has less cough per bedside Aid. OBJECTIVE: Vital Signs Period Temp Pulse Resp BP Sys/Valerio Pulse Ox Last 24 Hr 97.1 F-98.9 F 75-96 20-20 108-142/60-94 97-97 PE Neuro: alert, awake, cn 2-12intact Pulm: basilar rhonchi + wet cough CV: s1 s2 irregular rhythm Abd: s nt nd + bs ExT: RLE incision packed, CDI + tenderness Laboratory Results - last 24 hr 06/04/17 06/04/17 06/04/17 05:30 05:35 05:35 WBC 14.1 H RBC 3.87 Hgb 10.5 L Hct 33.9 MCV 87.4 MCH 27.1 MCHC 31.0 L RDW 15.3 Plt Count 245 MPV 9.5 Neutrophils % 89.7 H D Lymphocytes % 8.9 D Monocytes % 1.2 L D Eosinophils % 0.0 D Basophils % 0.2 PTT (Actin FS) 54.6 H Sodium Potassium Chloride Carbon Dioxide Anion Gap BUN Creatinine Creat Clearance w eGFR POC Glucometer 227 Random Glucose Hemoglobin A1c % Calcium Phosphorus Magnesium Total Bilirubin AST ALT Alkaline Phosphatase Total Protein Albumin 06/04/17 06/04/17 06/04/17 05:35 05:35 11:57 WBC RBC Hgb Hct MCV MCH MCHC RDW Plt Count MPV Neutrophils % Lymphocytes % Monocytes % Eosinophils % Basophils % PTT (Actin FS) Sodium 140 Potassium 5.1 Chloride 110 H Carbon Dioxide 20 L Anion Gap 10 BUN 19 H Creatinine 1.0 Creat Clearance w eGFR 52.69 POC Glucometer 329 Random Glucose 202 H Hemoglobin A1c % 6.9 H D Calcium 8.4 L Phosphorus 4.1 Magnesium 2.4 Total Bilirubin 0.9 AST 13 L ALT 11 L Alkaline Phosphatase 82 Total Protein 6.1 L Albumin 2.3 L Active Medications Generic Name Dose Route Start Last Admin Trade Name Freq PRN Reason Stop Dose Admin Atenolol 50 mg 05/31/17 10:00 06/04/17 11:27 Tenormin - PO 50 mg DAILY ITZEL Administration Donepezil HCl 5 mg 05/31/17 22:00 06/03/17 21:05 Aricept - PO 5 mg HS ITZEL Administration Heparin Sodium (Porcine) 1,000 unit 05/31/17 19:18 06/03/17 09:31 Heparin - IVPUSH 1,000 unit PRN PRN Administration Heparin Heparin Sodium (Porcine) 5,000 unit 05/31/17 19:18 06/01/17 00:27 Heparin - IVPUSH 5,000 unit PRN PRN Administration Heparin Sodium Chloride 1,000 mls @ 42 mls/hr 05/30/17 23:45 06/04/17 01:12 Normal Saline - IV Not Given ASDIR ITZEL HEPARIN SOD,PORK IN 0.45% NACL 25,000 units in 500 mls @ 20 mls/hr 05/31/17 21 :30 06/04/17 09:10 Heparin-1/2ns 25,000 Units/500 IVPB 850 units/hr TITR ITZEL 17 mls/hr Protocol Administration 1,000 UNITS/HR Insulin Aspart 1 vial 06/01/17 16:30 06/04/17 12:46 Novolog Vial Sliding Scale - SQ 8 units ACHS ITZEL Administration Protocol Prednisone 50 mg 06/03/17 19:00 06/04/17 06:09 Deltasone - PO 50 mg TID@0200,0700,1900 ITZEL Administration Imaging: - ECHO 05/31/17: nl LV/EF. RV tds. dilated LA/RA. large complex echodensity in RA , protrudes into IVC c/w thrombus. mod TR. RVSP 47. Assessment: 86 year-old female with a PMH significant for HTN, Afib off a/c x 3 weeks following a fall and injury to her right leg causing a hematoma which required surgical incision at [facility],systolic heart failure, carotid artery disease, venous stasis ulcers,and dementia, admitted with syncope and URI symptoms. Found to have bilateral DVTs and RA thrombus. Plan: 1. RA thrombus, PE - CTA shows PE along with RA thrombus - Discussed with IR, needs IVC, however would like cardiology input as pt with high risk for mortality along with exclusion factors unknown for thrombolysis - Maintain heparin gtt 2. Chest CTA - Pulmonary nodule? - Obtain CT chest w contrast in 48 hrs - Renal ca work up underway - Heme following 2. Bilateral LE DVT - Maintain heparin gtt 3. Syncope - Possible PE induced vs RA mass - Negative for orthostatics, CD negative - No telemetry events 4. Leukocytosis - Likely due to DVT/PE 5. A fib - Rate controlled - Atenolol 50mg daily - Heparin gtt 6. Systolic heart failure - Not in exacerbation - Hold lasix 7. THO - Improved - Continue gentle IVF - Hold lasix/JAM 8. Right lower extremity wound - Continue xeroform and sterile gauze - Surgery follow up as outpt 9. Dementia - Continue Donepezil 10. PPX - Heparin gtt - PT 11. DM II - ISS, BGM ACHS Visit type - Emergency Visit Emergency Visit: Yes ED Registration Date: 05/31/17 Care time: The patient presented to the Emergency Department on the above date and was hospitalized for further evaluation of their emergent condition. - New Patient This patient is new to me today: No - Critical Care Critical Care patient: No
[2017-06-04] MEDS ORDERED: PT OWN MED DRAWER 7, Y5N ONE (22:43)
[2017-06-04] MEDS: DONEPEZIL HCL 5 MG TABLET (FP) PO SCH (22:56)
[2017-06-05] MEDS: INSULIN SLIDING SCALE (NOVOLOG) 1 VIAL SQ SCH ×4 (06:07→22:30)
[2017-06-05 08:11] LABS: BASO % 0.1 % (0-2.0); HEMATOCRIT 30.8 % (32.4-45.2); HEMOGLOBIN 9.6 GM/dL (10.7-15.3); LYMPH % 11.2 % (8-40); MCH 26.8 pg (25.7-33.7); MEAN CELL VOLUME 86.4 fl (80-96); MEAN PLT VOLUME 8.7 fl (7.5-11.1); MONO % 5.1 % (3.8-10.2); NEUT % 83.6 % (42.8-82.8); PLATELET COUNT 243 K/MM3 (134-434); RBC 3.56 M/mm3 (3.60-5.2); RDW 15.2 % (11.6-15.6); WHITE BLOOD COUNT 20.9 K/mm3 (4.0-10.0)
[2017-06-05 08:36] LABS: ANION GAP 8 (8-16); BLOOD UREA NITROGEN 28 mg/dL (7-18); CALCIUM 8.5 mg/dL (8.5-10.1); CHLORIDE 108 mmol/L (98-107); CO2 25 mmol/L (21-32); GLUCOSE,RANDOM 142 mg/dL (74-106); POTASSIUM 4.5 mmol/L (3.5-5.1); SODIUM 141 mmol/L (136-145)
[2017-06-05 08:43] LABS: CREATININE 1.1 mg/dL (0.55-1.02); LDH 225 U/L (84-246)
[2017-06-05] MEDS: HEPARIN NA (PORCINE) 5,000 UNITS/ML 1ML VIAL IVPUSH PRN (09:25)
[2017-06-05] MEDS: HEPARIN SOD,PORK IN 0.45% NACL 25,000 UNITS/500 ML INFUS.BAG IVPB SCH (09:25)
[2017-06-05] MEDS: ATENOLOL 50 MG TABLET (FP) PO SCH (09:25)
--- NOTE | 2017-06-05 11:24 | PN ---
Progress Note (short form) - Note Progress Note: Progress Note (short form) - Note Progress Note: Chief Complaint: syncope History of Present Illness: On IVF. hgb stable on heparin drip. Extensive bilateral PE. no cp, sob, palpit, syncope no cigs Current Medications Generic Name Dose Route Start Last Admin Trade Name Freq PRN Reason Stop Dose Admin Atenolol 50 mg 05/31/17 10:00 06/05/17 09:25 Tenormin - PO 50 mg DAILY ITZEL Administration Donepezil HCl 5 mg 05/31/17 22:00 06/04/17 22:56 Aricept - PO 5 mg HS ITZEL Administration Heparin Sodium (Porcine) 1,000 unit 05/31/17 19:18 06/03/17 09:31 Heparin - IVPUSH 1,000 unit PRN PRN Administration Heparin Heparin Sodium (Porcine) 5,000 unit 05/31/17 19:18 06/01/17 00:27 Heparin - IVPUSH 5,000 unit PRN PRN Administration Heparin Sodium Chloride 1,000 mls @ 42 mls/hr 05/30/17 23:45 06/04/17 23:20 Normal Saline - IV Not Given ASDIR ITZEL HEPARIN SOD,PORK IN 0.45% NACL 25,000 units in 500 mls @ 20 mls/hr 05/31/17 21 :30 06/05/17 09:25 Heparin-1/2ns 25,000 Units/500 IVPB 1,000 units/hr TITR ITZEL 20 mls/hr Protocol Administration 1,000 UNITS/HR Insulin Aspart 1 vial 06/01/17 16:30 06/05/17 06:07 Novolog Vial Sliding Scale - SQ 2 units ACHS ITZEL Administration Protocol - Objective Vital Signs: Vital Signs Temp 98 F 06/05/17 09:30 Pulse 80 06/05/17 09:30 Resp 20 06/05/17 09:30 BP 130/66 06/05/17 09:30 Pulse Ox 95 06/05/17 07:47 Intake & Output 06/04/17 06/04/17 06/05/17 11:59 23:59 11:59 Intake Total 413 1003 Balance 413 1003 Intake: IV 413 1003 HEPARIN-1/2NS 25,000 119 289 UNITS/500 25,000 units In 500 ml @ 1,000 UNITS/HR 20 mls/hr IVPB TITR ITZEL Rx#:[id number] Normal Saline - 1,000 ml 294 714 @ 42 mls/hr IV ASDIR ITZEL Rx#:[id number] Other: Voiding Method Diaper Diaper Diaper # Unmeasured Voids Straight Cath 2 1 Void 2 2 Bowel Movement Yes # Bowel Movements 1 Constitutional: Yes: No Distress, Calm Eyes: No: Sclera Icterus HENT: No: Nasal Congestion Cardiovascular: Yes: Regular Rate and Rhythm, S1, S2, Other (PMI non diplaced). No: Gallop, Murmur Respiratory: Yes: CTA Bilaterally. No: Accessory Muscle Use, Rales, Wheezes Gastrointestinal: Yes: Normal Bowel Sounds, Soft. No: Tenderness Musculoskeletal: Yes: Other (No kyphosis) Extremities: No: Cyanosis Edema: No Integumentary: No: Jaundice Neurological: Yes: Alert, Oriented (x3) Psychiatric: No: Agitated Labs: Laboratory Last Values WBC 20.9 K/mm3 (4.0-10.0) H D 06/05/17 06:50 RBC 3.56 M/mm3 (3.60-5.2) L 06/05/17 06:50 Hgb 9.6 GM/dL (10.7-15.3) L 06/05/17 06:50 Hct 30.8 % (32.4-45.2) L 06/05/17 06:50 MCV 86.4 fl (80-96) 06/05/17 06:50 MCH 26.8 pg (25.7-33.7) 06/05/17 06:50 MCHC 31.0 g/dl (32.0-36.0) L 06/05/17 06:50 RDW 15.2 % (11.6-15.6) 06/05/17 06:50 Plt Count 243 K/MM3 (134-434) 06/05/17 06:50 MPV 8.7 fl (7.5-11.1) 06/05/17 06:50 Neutrophils % 83.6 % (42.8-82.8) H 06/05/17 06:50 Neutrophils % (Manual) 74.0 % (42.8-82.8) 06/01/17 08:52 Band Neutrophils % 4.0 % (0-10) 06/01/17 08:52 Lymphocytes % 11.2 % (8-40) D 06/05/17 06:50 Lymphocytes % (Manual) 18.0 % (8-40) 06/01/17 08:52 Monocytes % 5.1 % (3.8-10.2) D 06/05/17 06:50 Monocytes % (Manual) 4 % (3.8-10.2) 06/01/17 08:52 Eosinophils % 0.0 % (0-4.5) 06/05/17 06:50 Basophils % 0.1 % (0-2.0) 06/05/17 06:50 Platelet Estimate Adequate 06/01/17 08:52 Retic Count 3.37 % (0.5-1.5) H 06/05/17 06:50 PT with INR 14.8 SEC (10.2-13.0) H 05/30/17 15:30 INR 1.33 (0.82-1.09) H 05/30/17 15:30 PTT (Actin FS) 37.0 SECONDS (26.9-34.4) H D 06/05/17 06:50 Sodium 141 mmol/L (136-145) 06/05/17 06:50 Potassium 4.5 mmol/L (3.5-5.1) 06/05/17 06:50 Chloride 108 mmol/L (98-107) H 06/05/17 06:50 Carbon Dioxide 25 mmol/L (21-32) D 06/05/17 06:50 Anion Gap 8 (8-16) 06/05/17 06:50 BUN 28 mg/dL (7-18) H 06/05/17 06:50 Creatinine 1.1 mg/dL (0.55-1.02) H 06/05/17 06:50 Creat Clearance w eGFR 52.69 (>60) 06/04/17 05:35 POC Glucometer 181 UNITS (80-120) 06/05/17 05:34 Random Glucose 142 mg/dL (74-106) H 06/05/17 06:50 Hemoglobin A1c % 6.9 % (4.8-6.0) H D 06/04/17 05:35 Lactic Acid 1.2 mmol/L (0.4-2.0) 05/31/17 07:00 Calcium 8.5 mg/dL (8.5-10.1) 06/05/17 06:50 Phosphorus 4.1 mg/dL (2.5-4.9) 06/04/17 05:35 Magnesium 2.4 mg/dL (1.8-2.4) 06/04/17 05:35 Ferritin 74.820 ng/ml (6.9-282.5) 06/05/17 06:50 Total Bilirubin 0.9 mg/dL (0.2-1.0) 06/04/17 05:35 AST 13 U/L (15-37) L 06/04/17 05:35 ALT 11 U/L (12-78) L 06/04/17 05:35 Alkaline Phosphatase 82 U/L (45-117) 06/04/17 05:35 LD Total 225 U/L (84-246) 06/05/17 06:50 Creatine Kinase 28 IU/L (26-192) 05/31/17 15:00 Troponin I 0.03 ng/ml (0.00-0.05) 06/02/17 07:40 Total Protein 6.1 g/dl (6.4-8.2) L 06/04/17 05:35 Albumin 2.3 g/dl (3.4-5.0) L 06/04/17 05:35 Triglycerides 121 mg/dl (35-160) D 05/31/17 11:30 Cholesterol 119 mg/dl 05/31/17 11:30 Total LDL Cholesterol 73 mg/dl 05/31/17 11:30 HDL Cholesterol 22 mg/dl (29-89) L D 05/31/17 11:30 Vitamin B12 1678 pg/ml (180-914) H 06/05/17 06:50 Urine Color Yellow 05/30/17 17:37 Urine Appearance Clear 05/30/17 17:37 Urine pH 6.0 (4.5-8) 05/30/17 17:37 Ur Specific [place] 1.015 (1.005-1.025) 05/30/17 17:37 Urine Protein Trace (NEGATIVE) 05/30/17 17:37 Urine Glucose (UA) Negative (NEGATIVE) 05/30/17 17:37 Urine Ketones Trace (NEGATIVE) 05/30/17 17:37 Urine Blood Negative (NEGATIVE) 05/30/17 17:37 Urine Nitrite Negative (NEGATIVE) 05/30/17 17:37 Urine Bilirubin Negative (NEGATIVE) 05/30/17 17:37 Urine Urobilinogen 0.2 (0.2-1.0) 05/30/17 17:37 Ur Leukocyte Esterase Negative (NEGATIVE) 05/30/17 17:37 Stool Occult Blood Negative (NEGATIVE) 06/04/17 18:00 - ....Imaging EKG: Other (tele: afib, good HR) Assessment/Plan Echo 05/31/17: nl LV/EF. RV tds. dilated LA/RA. large complex echodensity in RA, protrudes into IVC c/w thrombus. mod TR. RVSP 47. CTA: extensive bilateral PE. 1 cm RUL mass suspicious for malignancy. Small bilateral pleural effusions and basilar atelectasis R>L. LE duplex: bilat DVTs (extensive RLE) 86 year-old female with a PMH significant for HTN, atrial fibrillation off a/c x 3 weeks, ? systolic heart failure, carotid artery disease, venous stasis ulcers, and dementia. + upper respiratory symptoms, including a dry cough, x 10 days. At PMD office on DOA she became cold and clammy and she had a brief episode of unresponsiveness. Her blood pressure was noted to be low. Returned to baseline mental status. In the ED, the patient was at her baseline mental status. Patient was taken off Xarelto three weeks ago following a fall and injury to her right leg causing a hematoma which required surgical incision at [facility]. extensive LE DVT, RA thrombus: -probable thrombus in RA, extending from IVC. likely from extensive RLE thrombus , in transit in setting of both extensive bilateral DVT (? provoked, given recent fall with injury and surgical procedure) and extensive bilateral PE with concern for RUL malignancy. - RV not well seen on echo but remains hemodynamically stable, oxygenating well. Tolerating AC. No strong indication for either ivc placement or thrombolysis at this time. However, given intracardiac thrombus and extensive clot burden, she is at risk for clinical deterioration. can consider need for thrombolysis if she decompensates clinically. Would confirm no brain mets or recent cva since those clinical scenarios would be contraindications to thrombolytics. -for now, continue UFH as doing, ? change to NOAC or lovenox now that creatinine has improved, will defer to hematology. -if she remains clinically stable, will rec repeat imaging after 2-4 weeks of AC , expect thrombus to organize and/or break up - malignancy w/u per hematology consult syncope: -brief LOC with hypotension on DOA at PMD office -likely sec to PE or ? right sided cardiac output obstruction from RA mass -transient sx's, hemodynamically stable since -mgmt plan as above -not orthostatic here Afib: -HR controlled, cont atenolol -AC as above HTN: -bp controlled, same meds THO: -likely vol depleted/prerenal -numbers improved s/p IVF
--- NOTE | 2017-06-05 12:42 | PN ---
Progress Note, Physician History of Present Illness: pulmonary alert,comfortable,-resp distress - Current Medication List Current Medications: Active Medications Atenolol (Tenormin -) 50 mg PO DAILY [facility] Last Admin: 06/05/17 09:25 Dose: 50 mg Donepezil HCl (Aricept -) 5 mg PO HS [facility] Last Admin: 06/04/17 22:56 Dose: 5 mg Heparin Sodium (Porcine) (Heparin -) 1,000 unit IVPUSH PRN PRN PRN Reason: Heparin Last Admin: 06/03/17 09:31 Dose: 1,000 unit Heparin Sodium (Porcine) (Heparin -) 5,000 unit IVPUSH PRN PRN PRN Reason: Heparin Last Admin: 06/01/17 00:27 Dose: 5,000 unit Sodium Chloride (Normal Saline -) 1,000 mls @ 42 mls/hr IV ASDIR [facility] Last Admin: 06/04/17 23:20 Dose: Not Given HEPARIN SOD,PORK IN 0.45% NACL (Heparin-1/2ns 25,000 Units/500) 25,000 units in 500 mls @ 20 mls/hr IVPB TITR ITZEL; 1,000 UNITS/HR PRN Reason: Protocol Last Admin: 06/05/17 09:25 Dose: 1,000 units/hr, 20 mls/hr Insulin Aspart (Novolog Vial Sliding Scale -) 1 vial SQ ACHS [facility] PRN Reason: Protocol Last Admin: 06/05/17 12:08 Dose: 6 units - Objective Vital Signs: Vital Signs Temperature 98 F 06/05/17 09:30 Pulse Rate 80 06/05/17 09:30 Respiratory Rate 20 06/05/17 09:30 Blood Pressure 130/66 06/05/17 09:30 O2 Sat by Pulse Oximetry (%) 95 06/05/17 07:47 Constitutional: Yes: Well Nourished, Calm Eyes: Yes: WNL HENT: Yes: WNL Neck: Yes: WNL Cardiovascular: Yes: Pulse Irregular, S1, S2 Respiratory: Yes: Diminished Gastrointestinal: Yes: Normal Bowel Sounds, Soft Extremities: Yes: WNL Edema: Yes Labs: CBC, BMP 06/05/17 06:50 06/05/17 06:50 INR, PTT INR 1.33 (0.82-1.09) H 01/11/18 15:30 Assessment/Plan Problem List - Problems (1) DVT (deep venous thrombosis) Code(s): I82.409 - ACUTE EMBOLISM AND THOMBOS UNSP DEEP VN UNSP LOWER EXTREMITY (2) Right atrial thrombus Code(s): IPF8410 - (3) IVC thrombosis Code(s): I82.220 - ACUTE EMBOLISM AND THROMBOSIS OF INFERIOR VENA CAVA (4) Acute kidney injury Code(s): N17.9 - ACUTE KIDNEY FAILURE, UNSPECIFIED (5) Elevated troponin Code(s): R74.8 - ABNORMAL LEVELS OF OTHER SERUM ENZYMES (6) Lactic acidosis Code(s): E87.2 - ACIDOSIS (7) Atrial fibrillation Code(s): I48.91 - UNSPECIFIED ATRIAL FIBRILLATION (8) CAD (coronary artery disease) Code(s): I25.10 - ATHSCL HEART DISEASE OF [place] CORONARY ARTERY W/O ANG PCTRS (9) Systolic dysfunction, left ventricle Code(s): I51.9 - HEART DISEASE, UNSPECIFIED (10) Dementia Code(s): F03.90 - UNSPECIFIED DEMENTIA WITHOUT BEHAVIORAL DISTURBANCE Assessment/Plan Extensive RLE DVT,,LLE Large Bilateral pulmonary emboli main pulmonary arteries RA/IVC thrombus Likely PE Acute Kidney Injury improved Atrial Fibrillation +Troponins LV Systolic Dysfunction Dementia RUL Nodule/mass - anticoagulation - O2 to keep Spo2 >90% - IVF - monitor urine output, creatinine DR JOSE
--- NOTE | 2017-06-05 14:01 | PN ---
Physical Exam: SUBJECTIVE: Patient seen and examined. She appears much improved today. More alert, no complaints, breathing stable OBJECTIVE: Vital Signs Period Temp Pulse Resp BP Sys/Valerio Pulse Ox Last 24 Hr 97.3 F-98 F 80-90 20-20 104-146/65-89 95-95 PE Neuro: alert, awake, cn 2-12intact Pulm: basilar crackles CV: s1 s2 irregular rhythm Abd: s nt nd + bs ExT: RLE incision packed, CDI + tenderness Laboratory Results - last 24 hr 06/05/17 06/05/17 06/05/17 05:34 06:50 06:50 WBC RBC Hgb Hct MCV MCH MCHC RDW Plt Count MPV Neutrophils % Lymphocytes % Monocytes % Eosinophils % Basophils % Retic Count 3.37 H PTT (Actin FS) 37.0 H D Sodium Potassium Chloride Carbon Dioxide Anion Gap BUN Creatinine POC Glucometer 181 Random Glucose Calcium Ferritin LD Total Vitamin B12 Stool Occult Blood 06/05/17 06/05/17 06/05/17 06:50 06:50 12:02 WBC 20.9 H D RBC 3.56 L Hgb 9.6 L Hct 30.8 L MCV 86.4 MCH 26.8 MCHC 31.0 L RDW 15.2 Plt Count 243 MPV 8.7 Neutrophils % 83.6 H Lymphocytes % 11.2 D Monocytes % 5.1 D Eosinophils % 0.0 Basophils % 0.1 Retic Count PTT (Actin FS) Sodium 141 Potassium 4.5 Chloride 108 H Carbon Dioxide 25 D Anion Gap 8 BUN 28 H Creatinine 1.1 H POC Glucometer 255 Random Glucose 142 H Calcium 8.5 Ferritin 74.820 LD Total 225 Vitamin B12 1678 H Stool Occult Blood Active Medications Generic Name Dose Route Start Last Admin Trade Name Freq PRN Reason Stop Dose Admin Atenolol 50 mg 05/31/17 10:00 06/05/17 09:25 Tenormin - PO 50 mg DAILY ITZEL Administration Donepezil HCl 5 mg 05/31/17 22:00 06/04/17 22:56 Aricept - PO 5 mg HS ITZEL Administration Heparin Sodium (Porcine) 1,000 unit 05/31/17 19:18 06/03/17 09:31 Heparin - IVPUSH 1,000 unit PRN PRN Administration Heparin Heparin Sodium (Porcine) 5,000 unit 05/31/17 19:18 06/01/17 00:27 Heparin - IVPUSH 5,000 unit PRN PRN Administration Heparin Sodium Chloride 1,000 mls @ 42 mls/hr 05/30/17 23:45 06/04/17 23:20 Normal Saline - IV Not Given ASDIR ITZEL HEPARIN SOD,PORK IN 0.45% NACL 25,000 units in 500 mls @ 20 mls/hr 05/31/17 21 :30 06/05/17 09:25 Heparin-1/2ns 25,000 Units/500 IVPB 1,000 units/hr TITR ITZEL 20 mls/hr Protocol Administration 1,000 UNITS/HR Insulin Aspart 1 vial 06/01/17 16:30 06/05/17 12:08 Novolog Vial Sliding Scale - SQ 6 units ACHS ITZEL Administration Protocol Imaging: - ECHO 05/31/17: nl LV/EF. RV tds. dilated LA/RA. large complex echodensity in RA , protrudes into IVC c/w thrombus. mod TR. RVSP 47. Assessment: 86 year-old female with a PMH significant for HTN, Afib off a/c x 3 weeks following a fall and injury to her right leg causing a hematoma which required surgical incision at [facility],systolic heart failure, carotid artery disease, venous stasis ulcers,and dementia, admitted with syncope and URI symptoms. Found to have bilateral DVTs and RA thrombus. Plan: 1. Extensive RA thrombus, Pulmonary emboli - CTA shows PE along with RA thrombus - Possible provoked d/t recent fall and surgery, however now with PE concern malignancy - Tolerating AC, Heme to rec outpt AC regimen - Per cards, at this tiem no strong indication for IVC placement or thrombolysis , if decompensates consider thrombolysis - Prior to any thrombolysis will need to calify and eval for any exclusion factors ie aortic aneurysm, brain mets, cva - Malignancy work up per Heme - Obtain Chest CT with contrast Saturday following CTA, pt will need to be pre medicated and hydrated 2. Chest CTA - Pulmonary nodule? - Obtain CT chest w contrast Saturday, see above - Renal ca work up underway - Heme following 2. Bilateral LE DVT - Maintain heparin gtt 3. Syncope - Possible PE induced vs RA mass - Negative for orthostatics, CD negative - No telemetry events 4. Leukocytosis - Likely due to DVT/PE 5. A fib - Rate controlled - Atenolol 50mg daily - Heparin gtt 6. Systolic heart failure - Not in exacerbation - Hold lasix 7. THO - Improved - Continue gentle IVF - Hold lasix/JAM 8. Right lower extremity wound - Continue xeroform and sterile gauze - Surgery follow up as outpt 9. Dementia - Continue Donepezil 10. PPX - Heparin gtt - PT 11. DM II - ISS, BGM ACHS Visit type - Emergency Visit Emergency Visit: Yes ED Registration Date: 05/31/17 Care time: The patient presented to the Emergency Department on the above date and was hospitalized for further evaluation of their emergent condition. - New Patient This patient is new to me today: No - Critical Care Critical Care patient: No
--- NOTE | 2017-06-05 17:13 | PN ---
Progress Note (short form) - Note Progress Note: Pt seen and examined. O/E: General: NAD,alert and awake Eyes: Yes: Conjunctiva Clear, EOM Intact HENT: Yes: Atraumatic, Normocephalic Neck: Yes: Supple, Trachea Midline Cardiovascular: Yes: Regular Rate and Rhythm Respiratory: Yes: Diminished (decreased breath sounds at the bases) Gastrointestinal: Yes: Normal Bowel Sounds, Soft. No: Tenderness Edema: Yes Last Vital Signs Temp Pulse Resp BP Pulse Ox 97.9 F 86 18 103/67 95 06/05/17 14:37 06/05/17 14:37 06/05/17 14:37 06/05/17 14:37 06/05/17 07:47 CBC, BMP 06/05/17 06:50 06/05/17 06:50 Current Medications Generic Name Dose Route Start Last Admin Trade Name Freq PRN Reason Stop Dose Admin Atenolol 50 mg 05/31/17 10:00 06/05/17 09:25 Tenormin - PO 50 mg DAILY ITZEL Administration Donepezil HCl 5 mg 05/31/17 22:00 06/04/17 22:56 Aricept - PO 5 mg HS ITZEL Administration Heparin Sodium (Porcine) 1,000 unit 05/31/17 19:18 06/03/17 09:31 Heparin - IVPUSH 1,000 unit PRN PRN Administration Heparin Heparin Sodium (Porcine) 5,000 unit 05/31/17 19:18 06/01/17 00:27 Heparin - IVPUSH 5,000 unit PRN PRN Administration Heparin Sodium Chloride 1,000 mls @ 42 mls/hr 05/30/17 23:45 06/04/17 23:20 Normal Saline - IV Not Given ASDIR ITZEL HEPARIN SOD,PORK IN 0.45% NACL 25,000 units in 500 mls @ 20 mls/hr 05/31/17 21 :30 06/05/17 09:25 Heparin-1/2ns 25,000 Units/500 IVPB 1,000 units/hr TITR ITZEL 20 mls/hr Protocol Administration 1,000 UNITS/HR Insulin Aspart 1 vial 06/01/17 16:30 06/05/17 17:07 Novolog Vial Sliding Scale - SQ 2 units ACHS ITZEL Administration Protocol RLE,LLE DVT RA thrombus extensive PE RUL mass suspicious for malignancy Atrial Fibrillation +Troponins LV Systolic Dysfunction ?Renal mass Dementia Was off xeralto since 04/30 when she had a fall and was admitted to [facility] until day before [place]. Has been off xeralto and developed extensive DVT/Rt. atrial clot likely from an underlying malignancy causing a hypercoagulable state. ?Lung mass suspicious for neoplastic process has a ?renal mass. would recommend CT a/p with contrast , with pre-hydration and pre meds. Switch to LMWH therapeutic dose from am. for labs ?family ?social situation.
[2017-06-05] MEDS: DONEPEZIL HCL 5 MG TABLET (FP) PO SCH (22:29)
[2017-06-05] MEDS: ENOXAPARIN NA (PORCINE) 80 MG/0.8 ML DISP.SYRIN SQ SCH (22:29)
[2017-06-06] MEDS: INSULIN SLIDING SCALE (NOVOLOG) 1 VIAL SQ SCH ×4 (06:23→23:14)
[2017-06-06 08:04] LABS: ALBUMIN 2.1 g/dl (3.4-5.0); ANION GAP 8 (8-16); BLOOD UREA NITROGEN 27 mg/dL (7-18); CALCIUM 7.9 mg/dL (8.5-10.1); CHLORIDE 110 mmol/L (98-107); CO2 24 mmol/L (21-32); GLUCOSE,RANDOM 133 mg/dL (74-106); POTASSIUM 4.5 mmol/L (3.5-5.1); SGOT/AST 10 U/L (15-37); SGPT/ALT 14 U/L (12-78); SODIUM 142 mmol/L (136-145)
[2017-06-06 08:06] LABS: SERUM IRON SATURATION 9 % (15-55); TOTAL IRON BINDING CAPACITY 271 ug/dL (250-450); UIBC 246 ug/dL (118-369)
[2017-06-06 08:07] LABS: ALK PHOS 74 U/L (45-117); BILIRUBIN,TOTAL 0.6 mg/dL (0.2-1.0); TOT PROT 5.2 g/dl (6.4-8.2)
[2017-06-06 08:22] LABS: HEMATOCRIT 32.7 % (32.4-45.2); HEMOGLOBIN 10.2 GM/dL (10.7-15.3); MCH 26.9 pg (25.7-33.7); MCHC 31.1 g/dl (32.0-36.0); MEAN CELL VOLUME 86.4 fl (80-96); MEAN PLT VOLUME 8.8 fl (7.5-11.1); PLATELET COUNT 239 K/MM3 (134-434); RBC 3.78 M/mm3 (3.60-5.2); WHITE BLOOD COUNT 15.8 K/mm3 (4.0-10.0)
[2017-06-06] MEDS: ENOXAPARIN NA (PORCINE) 80 MG/0.8 ML DISP.SYRIN SQ SCH ×2 (09:49→23:13)
[2017-06-06] MEDS: ATENOLOL 50 MG TABLET (FP) PO SCH (09:49)
--- NOTE | 2017-06-06 11:27 | PN ---
Progress Note (short form) - Note Progress Note: Progress Note (short form) - Note Progress Note: Chief Complaint: syncope History of Present Illness: On IVF. hgb stable on heparin drip. Extensive bilateral PE. no cp, sob, palpit, syncope no cigs Current Medications Generic Name Dose Route Start Last Admin Trade Name Andreaq PRN Reason Stop Dose Admin Atenolol 50 mg 05/31/17 10:00 06/06/17 09:49 Tenormin - PO 50 mg DAILY ITZEL Administration Donepezil HCl 5 mg 05/31/17 22:00 06/05/17 22:29 Aricept - PO 5 mg HS ITZEL Administration Enoxaparin Sodium 70 mg 06/05/17 22:00 06/06/17 09:49 Lovenox - SQ 70 mg BID ITZEL Administration Sodium Chloride 1,000 mls @ 42 mls/hr 05/30/17 23:45 06/04/17 23:20 Normal Saline - IV Not Given ASDIR ITZEL Insulin Aspart 1 vial 06/01/17 16:30 06/06/17 11:23 Novolog Vial Sliding Scale - SQ 4 units ACHS ITZEL Administration Protocol Vital Signs Period Temp Pulse Resp BP Sys/Valerio Pulse Ox Last 24 Hr 97.6 F-98.3 F 82-97 18-20 103-150/65-99 93 Constitutional: Yes: No Distress, Calm Eyes: No: Sclera Icterus HENT: No: Nasal Congestion Cardiovascular: Yes: Regular Rate and Rhythm, S1, S2, Other (PMI non diplaced). No: Gallop, Murmur Respiratory: Yes: CTA Bilaterally. No: Accessory Muscle Use, Rales, Wheezes Gastrointestinal: Yes: Normal Bowel Sounds, Soft. No: Tenderness Musculoskeletal: Yes: Other (No kyphosis) Extremities: No: Cyanosis Edema: No Integumentary: No: Jaundice Neurological: Yes: Alert, Oriented (x3) Psychiatric: No: Agitated Labs: CBC, BMP 06/06/17 05:35 06/06/17 05:35 - ....Imaging EKG: Other (tele: afib, good HR) Assessment/Plan Echo 05/31/17: nl LV/EF. RV tds. dilated LA/RA. large complex echodensity in RA, protrudes into IVC c/w thrombus. mod TR. RVSP 47. CTA: extensive bilateral PE. 1 cm RUL mass suspicious for malignancy. Small bilateral pleural effusions and basilar atelectasis R>L. LE duplex: bilat DVTs (extensive RLE) 86 year-old female with a PMH significant for HTN, atrial fibrillation off a/c x 3 weeks, ? systolic heart failure, carotid artery disease, venous stasis ulcers, and dementia. + upper respiratory symptoms, including a dry cough, x 10 days. At PMD office on DOA she became cold and clammy and she had a brief episode of unresponsiveness. Her blood pressure was noted to be low. Returned to baseline mental status. In the ED, the patient was at her baseline mental status. Patient was taken off Xarelto three weeks ago following a fall and injury to her right leg causing a hematoma which required surgical incision at [facility]. extensive LE DVT, RA thrombus: -probable thrombus in RA, extending from IVC. likely from extensive RLE thrombus , in transit in setting of both extensive bilateral DVT (? provoked, given recent fall with injury and surgical procedure) and extensive bilateral PE with concern for RUL malignancy. - RV not well seen on echo but remains hemodynamically stable, oxygenating well. Tolerating AC. No strong indication for either ivc placement or thrombolysis at this time. However, given intracardiac thrombus and extensive clot burden, she is at risk for clinical deterioration. can consider need for thrombolysis if she decompensates clinically. Would confirm no brain mets or recent cva since those clinical scenarios would be contraindications to thrombolytics. -on lovenox per Heme -if she remains clinically stable, will rec repeat imaging after 2-4 weeks of AC , expect thrombus to organize and/or break up - malignancy w/u per hematology consult syncope: -brief LOC with hypotension on DOA at PMD office -likely sec to PE or ? right sided cardiac output obstruction from RA mass -transient sx's, hemodynamically stable since -mgmt plan as above -not orthostatic here Afib: -HR controlled, cont atenolol -AC as above HTN: -bp controlled, same meds THO: -likely vol depleted/prerenal -numbers improved s/p IVF
--- NOTE | 2017-06-06 13:21 | PN ---
Progress Note (short form) - Note Progress Note: Overall breathing improviing. No CP. No acute overnight. Intake & Output 06/03/17 06/04/17 06/05/17 06/06/17 23:59 23:59 23:59 23:59 Intake Total 1099 1416 1098 624 Balance 1099 1416 1098 624 Last Vital Signs Temp Pulse Resp BP Pulse Ox 98.0 F 82 18 150/99 93 L 06/06/17 09:00 06/06/17 09:00 06/06/17 09:00 06/06/17 09:00 06/06/17 09:00 Active Medications Atenolol (Tenormin -) 50 mg PO DAILY [facility] Last Admin: 06/06/17 09:49 Dose: 50 mg Donepezil HCl (Aricept -) 5 mg PO HS [facility] Last Admin: 06/05/17 22:29 Dose: 5 mg Enoxaparin Sodium (Lovenox -) 70 mg SQ BID [facility] Last Admin: 06/06/17 09:49 Dose: 70 mg Sodium Chloride (Normal Saline -) 1,000 mls @ 42 mls/hr IV ASDIR [facility] Last Admin: 06/04/17 23:20 Dose: Not Given Insulin Aspart (Novolog Vial Sliding Scale -) 1 vial SQ ACHS [facility] PRN Reason: Protocol Last Admin: 06/06/17 11:23 Dose: 4 units Constitutional: Yes: NAD Eyes: Yes: WNL HENT: Yes: WNL Neck: Yes: WNL Cardiovascular: Yes: Pulse Irregular, S1, S2 Respiratory: Yes: Diminished at the bases Gastrointestinal: Yes: Normal Bowel Sounds, Soft Extremities: Yes: WNL Edema: Yes Labs: Laboratory Results - last 24 hr 06/05/17 06/05/17 06/05/17 06:50 17:00 17:00 WBC RBC Hgb Hct MCV MCH MCHC RDW Plt Count MPV PTT (Actin FS) Sodium Potassium Chloride Carbon Dioxide Anion Gap BUN Creatinine Creat Clearance w eGFR POC Glucometer Random Glucose Calcium Iron 25 L TIBC 271 Iron Saturation 9 L Total Bilirubin AST ALT Alkaline Phosphatase Total Protein Albumin Ur Random Sodium 37 Urine Creatinine 111.0 06/05/17 06/05/17 06/05/17 17:01 19:30 21:58 WBC RBC Hgb Hct MCV MCH MCHC RDW Plt Count MPV PTT (Actin FS) 28.5 Sodium Potassium Chloride Carbon Dioxide Anion Gap BUN Creatinine Creat Clearance w eGFR POC Glucometer 178 198 Random Glucose Calcium Iron TIBC Iron Saturation Total Bilirubin AST ALT Alkaline Phosphatase Total Protein Albumin Ur Random Sodium Urine Creatinine 06/06/17 06/06/17 06/06/17 05:35 05:35 05:35 WBC 15.8 H RBC 3.78 Hgb 10.2 L Hct 32.7 MCV 86.4 MCH 26.9 MCHC 31.1 L RDW 15.0 Plt Count 239 MPV 8.8 PTT (Actin FS) 33.6 Sodium 142 Potassium 4.5 Chloride 110 H Carbon Dioxide 24 Anion Gap 8 BUN 27 H Creatinine 1.0 Creat Clearance w eGFR 52.69 POC Glucometer Random Glucose 133 H Calcium 7.9 L Iron TIBC Iron Saturation Total Bilirubin 0.6 D AST 10 L ALT 14 Alkaline Phosphatase 74 Total Protein 5.2 L Albumin 2.1 L Ur Random Sodium Urine Creatinine 06/06/17 11:22 WBC RBC Hgb Hct MCV MCH MCHC RDW Plt Count MPV PTT (Actin FS) Sodium Potassium Chloride Carbon Dioxide Anion Gap BUN Creatinine Creat Clearance w eGFR POC Glucometer 215 Random Glucose Calcium Iron TIBC Iron Saturation Total Bilirubin AST ALT Alkaline Phosphatase Total Protein Albumin Ur Random Sodium Urine Creatinine Assessment/Plan Problem List - Problems (1) DVT (deep venous thrombosis) Code(s): I82.409 - ACUTE EMBOLISM AND THOMBOS UNSP DEEP VN UNSP LOWER EXTREMITY (2) Right atrial thrombus Code(s): OUH7990 - (3) IVC thrombosis Code(s): I82.220 - ACUTE EMBOLISM AND THROMBOSIS OF INFERIOR VENA CAVA (4) Acute kidney injury Code(s): N17.9 - ACUTE KIDNEY FAILURE, UNSPECIFIED (5) Elevated troponin Code(s): R74.8 - ABNORMAL LEVELS OF OTHER SERUM ENZYMES (6) Lactic acidosis Code(s): E87.2 - ACIDOSIS (7) Atrial fibrillation Code(s): I48.91 - UNSPECIFIED ATRIAL FIBRILLATION (8) CAD (coronary artery disease) Code(s): I25.10 - ATHSCL HEART DISEASE OF [place] CORONARY ARTERY W/O ANG PCTRS (9) Systolic dysfunction, left ventricle Code(s): I51.9 - HEART DISEASE, UNSPECIFIED (10) Dementia Code(s): F03.90 - UNSPECIFIED DEMENTIA WITHOUT BEHAVIORAL DISTURBANCE Assessment/Plan Extensive RLE DVT,,LLE Large Bilateral pulmonary emboli main pulmonary arteries RA/IVC thrombus Likely PE Acute Kidney Injury improved Atrial Fibrillation +Troponins LV Systolic Dysfunction Dementia RUL Nodule/mass - Lovenox 70mg SQ BID - Will need further imaging and eventual tissue diagnosis once stable from this acute episode - O2 to maintain saturation - IVF - monitor urine output, creatinine Dr Duncan
--- NOTE | 2017-06-06 13:51 | PN ---
Physical Exam: SUBJECTIVE: Patient seen and examined at the bedside. Sitting in chair, in no acute distress. Denies chest pain, denies any other discomfort. Aide at the bedside. OBJECTIVE: Vital Signs Period Temp Pulse Resp BP Sys/Valerio Pulse Ox Last 24 Hr 97.6 F-98.3 F 82-97 18-20 103-150/65-99 93-93 GENERAL: The patient is awake in no acute distress, periods of forgetfullness/ confusion HEAD: Normal with no signs of trauma. EYES: PERRL, extraocular movements intact, sclera anicteric, conjunctiva clear. No ptosis. ENT: moist mucous membranes. NECK: Trachea midline, full range of motion, supple. LUNGS: diminished breath sounds bilaterally HEART: irregular heart rate ABDOMEN: Soft, nontender, nondistended EXTREMITIES: s/p right leg hematoma evacuation, dressings daily NEUROLOGICAL: Normal speech, gait not observed. PSYCH: Normal mood, normal affect. SKIN: Warm, dry, normal turgor, no rashes or lesions noted Laboratory Results - last 24 hr 06/05/17 06/05/17 06/05/17 06:50 17:00 17:00 WBC RBC Hgb Hct MCV MCH MCHC RDW Plt Count MPV PTT (Actin FS) Sodium Potassium Chloride Carbon Dioxide Anion Gap BUN Creatinine Creat Clearance w eGFR POC Glucometer Random Glucose Calcium Iron 25 L TIBC 271 Iron Saturation 9 L Total Bilirubin AST ALT Alkaline Phosphatase Total Protein Albumin Ur Random Sodium 37 Urine Creatinine 111.0 06/05/17 06/05/17 06/05/17 17:01 19:30 21:58 WBC RBC Hgb Hct MCV MCH MCHC RDW Plt Count MPV PTT (Actin FS) 28.5 Sodium Potassium Chloride Carbon Dioxide Anion Gap BUN Creatinine Creat Clearance w eGFR POC Glucometer 178 198 Random Glucose Calcium Iron TIBC Iron Saturation Total Bilirubin AST ALT Alkaline Phosphatase Total Protein Albumin Ur Random Sodium Urine Creatinine 06/06/17 06/06/17 06/06/17 05:35 05:35 05:35 WBC 15.8 H RBC 3.78 Hgb 10.2 L Hct 32.7 MCV 86.4 MCH 26.9 MCHC 31.1 L RDW 15.0 Plt Count 239 MPV 8.8 PTT (Actin FS) 33.6 Sodium 142 Potassium 4.5 Chloride 110 H Carbon Dioxide 24 Anion Gap 8 BUN 27 H Creatinine 1.0 Creat Clearance w eGFR 52.69 POC Glucometer Random Glucose 133 H Calcium 7.9 L Iron TIBC Iron Saturation Total Bilirubin 0.6 D AST 10 L ALT 14 Alkaline Phosphatase 74 Total Protein 5.2 L Albumin 2.1 L Ur Random Sodium Urine Creatinine 06/06/17 11:22 WBC RBC Hgb Hct MCV MCH MCHC RDW Plt Count MPV PTT (Actin FS) Sodium Potassium Chloride Carbon Dioxide Anion Gap BUN Creatinine Creat Clearance w eGFR POC Glucometer 215 Random Glucose Calcium Iron TIBC Iron Saturation Total Bilirubin AST ALT Alkaline Phosphatase Total Protein Albumin Ur Random Sodium Urine Creatinine Active Medications Generic Name Dose Route Start Last Admin Trade Name Freq PRN Reason Stop Dose Admin Atenolol 50 mg 05/31/17 10:00 06/06/17 09:49 Tenormin - PO 50 mg DAILY [facility] Administration Donepezil HCl 5 mg 05/31/17 22:00 06/05/17 22:29 Aricept - PO 5 mg HS [facility] Administration Enoxaparin Sodium 70 mg 06/05/17 22:00 06/06/17 09:49 Lovenox - SQ 70 mg BID [facility] Administration Sodium Chloride 1,000 mls @ 42 mls/hr 05/30/17 23:45 06/04/17 23:20 Normal Saline - IV Not Given ASDIR [facility] Insulin Aspart 1 vial 06/01/17 16:30 06/06/17 11:23 Novolog Vial Sliding Scale - SQ 4 units ACHS [facility] Administration Protocol ASSESSMENT/PLAN: Patient is an 86 year old female with a significant pat medical history of HTN, Afib off a/c x 3 weeks following a fall and injury to her right leg causing a hematoma (s/p surgical evacuation), systolic heart failure, carotid artery disease, venous stasis ulcers,and dementia. Patient was admitted on 05/31/2017 with syncope and URI symptoms. Found to have bilateral DVTs and RA thrombus. Hematology/Oncology: Extensive RA thrombus, Pulmonary emboli Bilateral DVTs CTA shows PE along with RA thrombus, bilateral DVT May be provoked 2/2 recent surgery vs. malignancy cause On Lovenox 70mg BID No IVC placement or systemic thrombolysis as per bricklayer unless patient decomensates Continue malignancy workup as per oncology Chest CT with contrast tomorrow to rule out lung mets, possible nodule Head CT to rule out brain mets Cardiology: A fib, controlled Atenelol 50mg daily, Lovenox BID Systolic heart failure Lasix on hold for THO Monitor Renal: THO Hold Lasix, gentle hydration NS @ 42cc/hr Skin: Right lower extremity wound Dressing changes daily Endocrine Diabetes Monitor blood sugars with BGMs F.E.N. Fluids: gentle hydration Electrolytes: monitor Nutrition: diabetic diet Prophylaxis: DVT: Lovenox 70mg BID GI: Protonix Disposition: full code
[2017-06-06] MEDS: DONEPEZIL HCL 5 MG TABLET (FP) PO SCH (23:13)
[2017-06-07 06:42] LABS: BASO % 0.4 % (0-2.0); EOS % 0.4 % (0-4.5); HEMATOCRIT 29.6 % (32.4-45.2); HEMOGLOBIN 9.3 GM/dL (10.7-15.3); LYMPH % 26.2 % (8-40); MCHC 31.5 g/dl (32.0-36.0); MEAN CELL VOLUME 85.7 fl (80-96); MEAN PLT VOLUME 8.5 fl (7.5-11.1); MONO % 7.7 % (3.8-10.2); NEUT % 65.3 % (42.8-82.8); PLATELET COUNT 239 K/MM3 (134-434); RBC 3.46 M/mm3 (3.60-5.2); RDW 15.4 % (11.6-15.6); WHITE BLOOD COUNT 12.3 K/mm3 (4.0-10.0)
[2017-06-07 07:24] LABS: ALBUMIN 2.1 g/dl (3.4-5.0); ALK PHOS 70 U/L (45-117); ANION GAP 9 (8-16); BILIRUBIN,TOTAL 0.7 mg/dL (0.2-1.0); BLOOD UREA NITROGEN 22 mg/dL (7-18); CALCIUM 8.2 mg/dL (8.5-10.1); CHLORIDE 108 mmol/L (98-107); CO2 25 mmol/L (21-32); GLUCOSE,RANDOM 136 mg/dL (74-106); POTASSIUM 4.2 mmol/L (3.5-5.1); SGOT/AST 11 U/L (15-37); SGPT/ALT 13 U/L (12-78); SODIUM 142 mmol/L (136-145); TOT PROT 5.1 g/dl (6.4-8.2)
[2017-06-07] MEDS: INSULIN SLIDING SCALE (NOVOLOG) 1 VIAL SQ SCH ×4 (08:14→20:59)
[2017-06-07] MEDS: SODIUM CHLORIDE 1,000 ML IV SCH ×2 (08:15→21:30)
[2017-06-07] MEDS: ENOXAPARIN NA (PORCINE) 80 MG/0.8 ML DISP.SYRIN SQ SCH ×2 (09:24→20:59)
[2017-06-07] MEDS: ATENOLOL 50 MG TABLET (FP) PO SCH (09:24)
--- NOTE | 2017-06-07 11:21 | PN ---
Progress Note (short form) - Note Progress Note: Chief Complaint: syncope History of Present Illness: On IVF. hgb stable on heparin drip. Extensive bilateral PE. no cp, sob, palpit, syncope Current Medications Generic Name Dose Route Start Last Admin Trade Name Marisela PRN Reason Stop Dose Admin Atenolol 50 mg 05/31/17 10:00 06/07/17 09:24 Tenormin - PO 50 mg DAILY [facility] Administration Donepezil HCl 5 mg 05/31/17 22:00 06/06/17 23:13 Aricept - PO 5 mg HS [facility] Administration Enoxaparin Sodium 70 mg 06/05/17 22:00 06/07/17 09:24 Lovenox - SQ 70 mg BID [facility] Administration Sodium Chloride 1,000 mls @ 42 mls/hr 05/30/17 23:45 06/07/17 08:15 Normal Saline - IV Not Given ASDIR [facility] Insulin Aspart 1 vial 06/01/17 16:30 06/07/17 08:14 Novolog Vial Sliding Scale - SQ Not Given ACHS [facility] Protocol Vital Signs Period Temp Pulse Resp BP Sys/Valerio Pulse Ox Last 24 Hr 97.3 F-98.2 F 82-95 16-19 136-148/61-83 Constitutional: Yes: No Distress, Calm Eyes: No: Sclera Icterus HENT: No: Nasal Congestion Cardiovascular: Yes: Regular Rate and Rhythm, S1, S2, Other (PMI non diplaced). No: Gallop, Murmur Respiratory: Yes: CTA Bilaterally. No: Accessory Muscle Use, Rales, Wheezes Gastrointestinal: Yes: Normal Bowel Sounds, Soft. No: Tenderness Musculoskeletal: Yes: Other (No kyphosis) Extremities: No: Cyanosis Edema: No Integumentary: No: Jaundice Neurological: Yes: Alert, Oriented (x3) Psychiatric: No: Agitated Labs: CBC, BMP 06/07/17 05:35 06/07/17 05:35 - ....Imaging EKG: Other (tele: afib, good HR) Echo 05/31/17: nl LV/EF. RV tds. dilated LA/RA. large complex echodensity in RA, protrudes into IVC c/w thrombus. mod TR. RVSP 47. CTA: extensive bilateral PE. 1 cm RUL mass suspicious for malignancy. Small bilateral pleural effusions and basilar atelectasis R>L. LE duplex: bilat DVTs (extensive RLE) Assessment/Plan 86 year-old female with a PMH significant for HTN, atrial fibrillation off a/c x 3 weeks, ? systolic heart failure, carotid artery disease, venous stasis ulcers, and dementia. + upper respiratory symptoms, including a dry cough, x 10 days. At PMD office on DOA she became cold and clammy and she had a brief episode of unresponsiveness. Her blood pressure was noted to be low. Returned to baseline mental status. In the ED, the patient was at her baseline mental status. Patient was taken off Xarelto three weeks ago following a fall and injury to her right leg causing a hematoma which required surgical incision at [facility]. extensive LE DVT, RA thrombus: -probable thrombus in RA, extending from IVC. likely from extensive RLE thrombus , in transit in setting of both extensive bilateral DVT (? provoked, given recent fall with injury and surgical procedure) and extensive bilateral PE with concern for RUL malignancy. - RV not well seen on echo but remains hemodynamically stable, oxygenating well. Tolerating AC. No strong indication for either ivc placement or thrombolysis at this time. However, given intracardiac thrombus and extensive clot burden, she is at risk for clinical deterioration. can consider need for thrombolysis if she decompensates clinically. Would confirm no brain mets or recent cva since those clinical scenarios would be contraindications to thrombolytics. -on lovenox per Heme -if she remains clinically stable, will rec repeat imaging after 2-4 weeks of AC , expect thrombus to organize and/or break up - malignancy w/u per hematology consult syncope: -brief LOC with hypotension on DOA at PMD office -likely sec to PE or ? right sided cardiac output obstruction from RA mass -transient sx's, hemodynamically stable since -mgmt plan as above -not orthostatic here Afib: -HR controlled, cont atenolol -AC as above HTN: -bp controlled, same meds THO: -likely vol depleted/prerenal -numbers improved s/p IVF
[2017-06-07] MEDS ORDERED: predniSONE 20 MG TABLET (UD) PO ONE ×3 (13:00→20:00)
--- NOTE | 2017-06-07 15:17 | PN ---
Physical Exam: SUBJECTIVE: Patient seen and examined at the bedside. OBJECTIVE: For a CT scan of head to rule out mets CT AP ordered for 9am tomorrow after pt is pre-medicated: - Prednisone 50mg at 13, 7 [address], With Benadryl 50mg PO [address] Vital Signs Period Temp Pulse Resp BP Sys/Valerio Pulse Ox Last 24 Hr 97.3 F-98.3 F 82-95 16-19 136-148/61-83 94 GENERAL: The patient is awake in no acute distress, periods of forgetfulness/ confusion HEAD: Normal with no signs of trauma. EYES: PERRL, extraocular movements intact, sclera anicteric, conjunctiva clear. No ptosis. ENT: moist mucous membranes. NECK: Trachea midline, full range of motion, supple. LUNGS: diminished breath sounds bilaterally HEART: irregular heart rate ABDOMEN: Soft, nontender, nondistended EXTREMITIES: s/p right leg hematoma evacuation, dressings daily NEUROLOGICAL: Normal speech, gait not observed. PSYCH: Normal mood, normal affect. SKIN: Warm, dry, normal turgor, no rashes or lesions noted Laboratory Results - last 24 hr 06/05/17 06/06/17 06/06/17 06:50 17:09 21:03 WBC RBC Hgb Hct 31.2 L MCV MCH MCHC RDW Plt Count MPV Neutrophils % Lymphocytes % Monocytes % Eosinophils % Basophils % Sodium Potassium Chloride Carbon Dioxide Anion Gap BUN Creatinine Creat Clearance w eGFR POC Glucometer 223 211 Random Glucose Calcium Total Bilirubin AST ALT Alkaline Phosphatase Total Protein Albumin Folate >1987 Folate Hemolysate >620.0 06/07/17 06/07/17 06/07/17 05:35 05:35 11:22 WBC 12.3 H RBC 3.46 L Hgb 9.3 L Hct 29.6 L MCV 85.7 MCH 27.0 MCHC 31.5 L RDW 15.4 Plt Count 239 MPV 8.5 Neutrophils % 65.3 D Lymphocytes % 26.2 D Monocytes % 7.7 Eosinophils % 0.4 D Basophils % 0.4 D Sodium 142 Potassium 4.2 Chloride 108 H Carbon Dioxide 25 Anion Gap 9 BUN 22 H Creatinine 1.0 Creat Clearance w eGFR 52.69 POC Glucometer 208 Random Glucose 136 H Calcium 8.2 L Total Bilirubin 0.7 AST 11 L ALT 13 Alkaline Phosphatase 70 Total Protein 5.1 L Albumin 2.1 L Folate Folate Hemolysate Active Medications Generic Name Dose Route Start Last Admin Trade Name Freq PRN Reason Stop Dose Admin Atenolol 50 mg 05/31/17 10:00 06/07/17 09:24 Tenormin - PO 50 mg DAILY [facility] Administration Diphenhydramine HCl 50 mg 06/08/17 08:00 Benadryl - PO 06/08/17 08:01 ONCE ONE Donepezil HCl 5 mg 05/31/17 22:00 06/06/17 23:13 Aricept - PO 5 mg HS [facility] Administration Enoxaparin Sodium 70 mg 06/05/17 22:00 06/07/17 09:24 Lovenox - SQ 70 mg BID [facility] Administration Sodium Chloride 1,000 mls @ 42 mls/hr 05/30/17 23:45 06/07/17 08:15 Normal Saline - IV Not Given ASDIR [facility] Insulin Aspart 1 vial 06/01/17 16:30 06/07/17 11:40 Novolog Vial Sliding Scale - SQ 4 units ACHS [facility] Administration Protocol Prednisone 50 mg 06/07/17 20:00 Deltasone - PO 06/07/17 20:01 ONCE ONE Prednisone 50 mg 06/08/17 02:00 Deltasone - PO 06/08/17 02:01 ONCE ONE Prednisone 50 mg 06/08/17 08:00 Deltasone - PO 06/08/17 08:01 ONCE ONE ASSESSMENT/PLAN: Patient is an 86 year old female with a significant pat medical history of HTN, Afib off a/c x 3 weeks following a fall and injury to her right leg causing a hematoma (s/p surgical evacuation), systolic heart failure, carotid artery disease, venous stasis ulcers,and dementia. Patient was admitted on 05/31/2017 with syncope and URI symptoms. Found to have bilateral DVTs and RA thrombus. Hematology/Oncology: Extensive RA thrombus, Pulmonary emboli Bilateral DVTs CTA shows PE along with RA thrombus, bilateral DVT May be provoked 2/2 recent surgery vs. malignancy cause On Lovenox 70mg BID No IVC placement or systemic thrombolysis as per jig maker unless patient decompensates Continue malignancy workup as per oncology Chest CT with contrast tomorrow to rule out lung mets, possible nodule: premedicated with Prednisone as per protocol prior Head CT to rule out brain mets Cardiology: A fib, controlled Atenolol 50mg daily, Lovenox BID Systolic heart failure Lasix on hold for THO Monitor Renal: THO Hold Lasix, gentle hydration NS @ 42cc/hr Skin: Right lower extremity wound Dressing changes daily Endocrine Diabetes Monitor blood sugars with BGMs F.E.N. Fluids: gentle hydration Electrolytes: monitor Nutrition: diabetic diet Prophylaxis: DVT: Lovenox 70mg BID GI: Protonix Disposition: full code. As per family, patient to return home with family with [employer] care. Patient family will to follow up outpatient with oncologist after tests are completed. Visit type - Emergency Visit Emergency Visit: Yes ED Registration Date: 05/31/17 Care time: The patient presented to the Emergency Department on the above date and was hospitalized for further evaluation of their emergent condition. - New Patient This patient is new to me today: No - Critical Care Critical Care patient: No - Discharge Referral Referred to [facility] Med P.C.: No
--- NOTE | 2017-06-07 17:03 | PN ---
Progress Note, Physician History of Present Illness: pulmonary alert,nad,-sob on nasal o2 - Current Medication List Current Medications: Active Medications Atenolol (Tenormin -) 50 mg PO DAILY [facility] Last Admin: 06/07/17 09:24 Dose: 50 mg Diphenhydramine HCl (Benadryl -) 50 mg PO ONCE ONE Stop: 06/08/17 08:01 Donepezil HCl (Aricept -) 5 mg PO HS [facility] Last Admin: 06/06/17 23:13 Dose: 5 mg Enoxaparin Sodium (Lovenox -) 70 mg SQ BID [facility] Last Admin: 06/07/17 09:24 Dose: 70 mg Sodium Chloride (Normal Saline -) 1,000 mls @ 42 mls/hr IV ASDIR [facility] Last Admin: 06/07/17 08:15 Dose: Not Given Insulin Aspart (Novolog Vial Sliding Scale -) 1 vial SQ ACHS [facility] PRN Reason: Protocol Last Admin: 06/07/17 16:31 Dose: Not Given Prednisone (Deltasone -) 50 mg PO ONCE ONE Stop: 06/07/17 20:01 Prednisone (Deltasone -) 50 mg PO ONCE ONE Stop: 06/08/17 02:01 Prednisone (Deltasone -) 50 mg PO ONCE ONE Stop: 06/08/17 08:01 - Objective Vital Signs: Vital Signs Temperature 98.3 F 06/07/17 14:42 Pulse Rate 84 06/07/17 09:00 Respiratory Rate 19 06/07/17 09:00 Blood Pressure 137/77 06/07/17 09:00 O2 Sat by Pulse Oximetry (%) 94 L 06/07/17 09:00 Constitutional: Yes: Well Nourished, Calm Eyes: Yes: WNL HENT: Yes: WNL Neck: Yes: WNL Cardiovascular: Yes: Pulse Irregular, S1, S2 Respiratory: Yes: Diminished Gastrointestinal: Yes: Normal Bowel Sounds, Soft Extremities: Yes: WNL Edema: Yes Labs: CBC, BMP 06/07/17 05:35 06/07/17 05:35 INR, PTT INR 1.33 (0.82-1.09) H 05/30/17 15:30 Assessment/Plan Problem List - Problems (1) DVT (deep venous thrombosis) Code(s): I82.409 - ACUTE EMBOLISM AND THOMBOS UNSP DEEP VN UNSP LOWER EXTREMITY (2) Right atrial thrombus Code(s): NGT6401 - (3) IVC thrombosis Code(s): I82.220 - ACUTE EMBOLISM AND THROMBOSIS OF INFERIOR VENA CAVA (4) Acute kidney injury Code(s): N17.9 - ACUTE KIDNEY FAILURE, UNSPECIFIED (5) Elevated troponin Code(s): R74.8 - ABNORMAL LEVELS OF OTHER SERUM ENZYMES (6) Lactic acidosis Code(s): E87.2 - ACIDOSIS (7) Atrial fibrillation Code(s): I48.91 - UNSPECIFIED ATRIAL FIBRILLATION (8) CAD (coronary artery disease) Code(s): I25.10 - ATHSCL HEART DISEASE OF [place] CORONARY ARTERY W/O ANG PCTRS (9) Systolic dysfunction, left ventricle Code(s): I51.9 - HEART DISEASE, UNSPECIFIED (10) Dementia Code(s): F03.90 - UNSPECIFIED DEMENTIA WITHOUT BEHAVIORAL DISTURBANCE Assessment/Plan Extensive RLE DVT,,LLE Large Bilateral pulmonary emboli main pulmonary arteries RA/IVC thrombus Likely PE Acute Kidney Injury improved Atrial Fibrillation +Troponins LV Systolic Dysfunction Dementia RUL Nodule/mass - anticoagulation - O2 to keep Spo2 >90% - IVF - monitor urine output, creatinine - ct abd/pelvis DR JOSE
[2017-06-07] MEDS ORDERED: ACETAMINOPHEN 325 MG TABLET (FP) PO PRN (20:09)
[2017-06-07] MEDS: DONEPEZIL HCL 5 MG TABLET (FP) PO SCH (20:59)
[2017-06-08] MEDS ORDERED: predniSONE 20 MG TABLET (UD) PO ONE ×5 (01:00→12:00)
[2017-06-08] MEDS: SODIUM CHLORIDE 1,000 ML IV SCH ×2 (02:40→23:59)
[2017-06-08] MEDS: INSULIN SLIDING SCALE (NOVOLOG) 1 VIAL SQ SCH ×3 (06:05→17:22)
[2017-06-08] MEDS ORDERED: diphenhydrAMINE HCL 25 MG CAPSULE (FP) PO ONE (08:00)
--- NOTE | 2017-06-08 11:25 | PN ---
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: Afib in 80s No complaints this AM - Current Medication List Current Medications: Active Medications Acetaminophen (Tylenol -) 650 mg PO Q6H PRN PRN Reason: FEVER Last Admin: 06/07/17 20:35 Dose: 650 mg Atenolol (Tenormin -) 50 mg PO DAILY [facility] Last Admin: 06/07/17 09:24 Dose: 50 mg Donepezil HCl (Aricept -) 5 mg PO HS [facility] Last Admin: 06/07/17 20:59 Dose: 5 mg Enoxaparin Sodium (Lovenox -) 70 mg SQ BID [facility] Last Admin: 06/07/17 20:59 Dose: 70 mg Sodium Chloride (Normal Saline -) 1,000 mls @ 42 mls/hr IV ASDIR [facility] Last Admin: 06/08/17 02:40 Dose: Not Given Insulin Aspart (Novolog Vial Sliding Scale -) 1 vial SQ ACHS [facility] PRN Reason: Protocol Last Admin: 06/08/17 06:05 Dose: Not Given - Objective Vital Signs: Vital Signs Temperature 97.3 F L 06/08/17 06:00 Pulse Rate 86 06/08/17 06:00 Respiratory Rate 20 06/08/17 06:00 Blood Pressure 146/73 06/08/17 06:00 O2 Sat by Pulse Oximetry (%) 94 L 06/07/17 22:00 Constitutional: Yes: No Distress, Calm Eyes: Yes: WNL HENT: Yes: WNL Neck: Yes: WNL Cardiovascular: Yes: Regular Rate and Rhythm Respiratory: Yes: CTA Bilaterally Gastrointestinal: Yes: Normal Bowel Sounds Extremities: Yes: WNL Edema: Yes Edema: RUE: 1+, LLE: 1+ Labs: CBC, BMP 06/07/17 05:35 06/07/17 05:35 INR, PTT INR 1.33 (0.82-1.09) H 05/30/17 15:30 Assessment/Plan Echo 05/31/17: nl LV/EF. RV tds. dilated LA/RA. large complex echodensity in RA, protrudes into IVC c/w thrombus. mod TR. RVSP 47. CTA: extensive bilateral PE. 1 cm RUL mass suspicious for malignancy. Small bilateral pleural effusions and basilar atelectasis R>L. LE duplex: bilat DVTs (extensive RLE) Assessment/Plan 86 year-old female with a PMH significant for HTN, atrial fibrillation off a/c x 3 weeks, ? systolic heart failure, carotid artery disease, venous stasis ulcers, and dementia. + upper respiratory symptoms, including a dry cough, x 10 days. At PMD office on DOA she became cold and clammy and she had a brief episode of unresponsiveness. Her blood pressure was noted to be low. Returned to baseline mental status. In the ED, the patient was at her baseline mental status. Patient was taken off Xarelto three weeks ago following a fall and injury to her right leg causing a hematoma which required surgical incision at [facility]. extensive LE DVT, RA thrombus: -probable thrombus in RA, extending from IVC. likely from extensive RLE thrombus , in transit in setting of both extensive bilateral DVT (? provoked, given recent fall with injury and surgical procedure) and extensive bilateral PE with concern for RUL malignancy. - RV not well seen on echo but remains hemodynamically stable, oxygenating well. Tolerating AC. No strong indication for either ivc placement or thrombolysis at this time. However, given intracardiac thrombus and extensive clot burden, she is at risk for clinical deterioration. can consider need for thrombolysis if she decompensates clinically. -on lovenox per Heme -if she remains clinically stable, will rec repeat imaging after 2-4 weeks of AC , expect thrombus to organize and/or break up - malignancy w/u per hematology consult syncope: -brief LOC with hypotension on DOA at PMD office -likely sec to PE or ? right sided cardiac output obstruction from RA mass -transient sx's, hemodynamically stable since -mgmt plan as above -not orthostatic here Afib: -HR controlled, cont atenolol -AC as above HTN: -bp controlled, same meds THO: -likely vol depleted/prerenal -numbers improved s/p IVF
[2017-06-08] MEDS ORDERED: INSULIN (NOVOLOG) ASPART 100 UNITS/ML 10ML VIAL ONE (11:26)
[2017-06-08] MEDS: ENOXAPARIN NA (PORCINE) 80 MG/0.8 ML DISP.SYRIN SQ SCH (11:28)
[2017-06-08] MEDS: ATENOLOL 50 MG TABLET (FP) PO SCH (11:28)
--- NOTE | 2017-06-08 14:03 | PN ---
Progress Note (short form) - Note Progress Note: Overall breathing improving. No CP. No acute overnight. Intake & Output 06/05/17 06/06/17 06/07/17 06/08/17 23:59 23:59 23:59 23:59 Intake Total 1098 1424 520 Balance 1098 1424 520 Last Vital Signs Temp Pulse Resp BP Pulse Ox 97.3 F L 86 20 146/73 94 L 06/08/17 06:00 06/08/17 06:00 06/08/17 06:00 06/08/17 06:00 06/07/17 22:00 Active Medications Acetaminophen (Tylenol -) 650 mg PO Q6H PRN PRN Reason: FEVER Last Admin: 06/07/17 20:35 Dose: 650 mg Atenolol (Tenormin -) 50 mg PO DAILY [facility] Last Admin: 06/08/17 11:28 Dose: 50 mg Donepezil HCl (Aricept -) 5 mg PO HS [facility] Last Admin: 06/07/17 20:59 Dose: 5 mg Enoxaparin Sodium (Lovenox -) 70 mg SQ BID [facility] Last Admin: 06/08/17 11:28 Dose: 70 mg Sodium Chloride (Normal Saline -) 1,000 mls @ 42 mls/hr IV ASDIR [facility] Last Admin: 06/08/17 02:40 Dose: Not Given Insulin Aspart (Novolog Vial Sliding Scale -) 1 vial SQ ACHS [facility] PRN Reason: Protocol Last Admin: 06/08/17 11:28 Dose: 4 units Constitutional: Yes: NAD Eyes: Yes: WNL HENT: Yes: WNL Neck: Yes: WNL Cardiovascular: Yes: Pulse Irregular, S1, S2 Respiratory: Yes: Diminished at the bases Gastrointestinal: Yes: Normal Bowel Sounds, Soft Extremities: Yes: WNL Edema: Yes Labs: Laboratory Results - last 24 hr 06/07/17 06/08/17 06/08/17 20:32 05:38 11:24 POC Glucometer 278 252 230 Assessment/Plan Problem List - Problems (1) DVT (deep venous thrombosis) Code(s): I82.409 - ACUTE EMBOLISM AND THOMBOS UNSP DEEP VN UNSP LOWER EXTREMITY (2) Right atrial thrombus Code(s): HWY1508 - (3) IVC thrombosis Code(s): I82.220 - ACUTE EMBOLISM AND THROMBOSIS OF INFERIOR VENA CAVA (4) Acute kidney injury Code(s): N17.9 - ACUTE KIDNEY FAILURE, UNSPECIFIED (5) Elevated troponin Code(s): R74.8 - ABNORMAL LEVELS OF OTHER SERUM ENZYMES (6) Lactic acidosis Code(s): E87.2 - ACIDOSIS (7) Atrial fibrillation Code(s): I48.91 - UNSPECIFIED ATRIAL FIBRILLATION (8) CAD (coronary artery disease) Code(s): I25.10 - ATHSCL HEART DISEASE OF [place] CORONARY ARTERY W/O ANG PCTRS (9) Systolic dysfunction, left ventricle Code(s): I51.9 - HEART DISEASE, UNSPECIFIED (10) Dementia Code(s): F03.90 - UNSPECIFIED DEMENTIA WITHOUT BEHAVIORAL DISTURBANCE Assessment/Plan Extensive RLE DVT,,LLE Large Bilateral pulmonary emboli main pulmonary arteries RA/IVC thrombus Likely PE Acute Kidney Injury improved Atrial Fibrillation +Troponins LV Systolic Dysfunction Dementia RUL Nodule/mass - Lovenox 70mg SQ BID - Will need further imaging and eventual tissue diagnosis once stable from this acute episode - O2 to maintain saturation - IVF Dr Duncan
--- NOTE | 2017-06-08 16:30 | PN ---
Physical Exam: SUBJECTIVE: Patient seen and examined. She has no active complaints, she wants to go home. OBJECTIVE: Vital Signs Period Temp Pulse Resp BP Sys/Valerio Pulse Ox Last 24 Hr 97.3 F-98.1 F 78-106 20-20 122-152/70-95 94-94 PE Neuro: alert, awake, cn 2-12intact Pulm: basilar crackles L > R CV: s1 s2 irregular rhythm Abd: s nt nd + bs ExT: RLE incision packed, CDI + tenderness Laboratory Results - last 24 hr 06/07/17 06/08/17 06/08/17 20:32 05:38 11:24 POC Glucometer 278 252 230 Active Medications Generic Name Dose Route Start Last Admin Trade Name Freq PRN Reason Stop Dose Admin Acetaminophen 650 mg 06/07/17 20:09 06/07/17 20:35 Tylenol - PO 650 mg Q6H PRN Administration FEVER Atenolol 50 mg 05/31/17 10:00 06/08/17 11:28 Tenormin - PO 50 mg DAILY ITZEL Administration Donepezil HCl 5 mg 05/31/17 22:00 06/07/17 20:59 Aricept - PO 5 mg HS ITZEL Administration Enoxaparin Sodium 70 mg 06/05/17 22:00 06/08/17 11:28 Lovenox - SQ 70 mg BID ITZEL Administration Sodium Chloride 1,000 mls @ 42 mls/hr 05/30/17 23:45 06/08/17 02:40 Normal Saline - IV Not Given ASDIR ITZEL Insulin Aspart 1 vial 06/01/17 16:30 06/08/17 11:28 Novolog Vial Sliding Scale - SQ 4 units ACHS ITZEL Administration Protocol Microbiology 06/05/17 17:00 Urine Culture - Final Urine - Urine - Catheterized Enterococcus Faecalis 06/05/17 19:30 Blood Culture - Preliminary Blood - Peripheral Venous NO GROWTH OBTAINED AFTER 48 HOURS, INCUBATION TO CONTINUE FOR 3 DAYS. 06/05/17 19:30 Blood Culture - Preliminary Blood - Peripheral Venous NO GROWTH OBTAINED AFTER 48 HOURS, INCUBATION TO CONTINUE FOR 3 DAYS. Imaging: - ECHO 05/31/17: nl LV/EF. RV tds. dilated LA/RA. large complex echodensity in RA , protrudes into IVC c/w thrombus. mod TR. RVSP 47. Assessment: 86 year-old female with a PMH significant for HTN, Afib off a/c x 3 weeks following a fall and injury to her right leg causing a hematoma which required surgical incision at [facility],systolic heart failure, carotid artery disease, venous stasis ulcers,and dementia, admitted with syncope and URI symptoms. Found to have bilateral DVTs and RA thrombus and PE. Plan: 1. Extensive RA thrombus, Pulmonary emboli - CTA shows PE along with RA thrombus - Lovenox 70mg BID - CTAP, CT head negative for malignancy - No IVC placement/thrombolysis at this time unless decompensating, will need eval for exclusion factors first 2. Bilateral LE DVT - Lovenox BID 3. Syncope - Quiescent - Possible PE induced vs RA mass 4. Leukocytosis - WBC downtrending - Urine cx + enterococcus, pt is asymptomatic, no infectious signs - Will hold on abx at this time 5. A fib, controlled - Atenolol 50mg daily 6. Systolic heart failure - Not in exacerbation - Hold lasix 7. THO - Improved - Continue gentle IVF - Hold lasix/JAM 8. Right lower extremity wound - Continue xeroform and sterile gauze - Surgery follow up as outpt 9. Dementia - Continue Donepezil 10. PPX - Lovenox - PT 11. DM II - ISS, BGM ACHS Visit type - Emergency Visit Emergency Visit: Yes ED Registration Date: 05/31/17 Care time: The patient presented to the Emergency Department on the above date and was hospitalized for further evaluation of their emergent condition. - New Patient This patient is new to me today: No - Critical Care Critical Care patient: No
[2017-06-08] MEDS ORDERED: LEVOFLOXACIN 500 MG IVPB 500 MG/100 ML BAG IVPB ONE (17:09)
--- NOTE | 2017-06-08 18:00 | PN ---
Progress Note (short form) - Note Progress Note: Patient seen and examined Denies any complaints Last Vital Signs Temp Pulse Resp BP Pulse Ox 97.8 F 84 18 127/82 94 L 06/08/17 17:59 06/08/17 17:59 06/08/17 17:59 06/08/17 17:59 06/08/17 10:00 Cor: RSR, No murmurs, No gallops Lungs: Clear to P&A Abd: Soft, Normal bowel sounds, No organomegaly Ext:No significant edema Labs/MEds reviewed A/P 86 y/o patient with RLE,LLE DVT RA thrombus extensive PE RUL mass suspicious for malignancy Atrial Fibrillation +Troponins LV Systolic Dysfunction Dementia Was off xeralto since 04/30 when she had a fall and was admitted to [facility] until day before . Has been off xeralto and developed extensive DVT/Rt. atrial clot likely from an underlying malignancy causing a hypercoagulable state. ?Lung mass suspicious for neoplastic process ---icm RUL lunmg mass--needs close outpatient f/'u CT chest CT a/p with contrast , -- complex renal cysts/pancreatic cyst --will need close MRI with contrast f/u outpatient or f/u CT agree with lovenox will need to discuss goals of care with family regarding need for further tests to w/u abnormal imaging findings/occult tiesha conley. in this frail patioejt with dementia
[2017-06-09] MEDS: ENOXAPARIN NA (PORCINE) 80 MG/0.8 ML DISP.SYRIN SQ SCH ×2 (00:16→10:29)
[2017-06-09] MEDS: DONEPEZIL HCL 5 MG TABLET (FP) PO SCH (00:16)
[2017-06-09] MEDS: INSULIN SLIDING SCALE (NOVOLOG) 1 VIAL SQ SCH ×3 (00:16→11:55)
[2017-06-09 07:21] LABS: BASO % 0.1 % (0-2.0); EOS % 0.1 % (0-4.5); HEMATOCRIT 30.1 % (32.4-45.2); HEMOGLOBIN 9.4 GM/dL (10.7-15.3); LYMPH % 13.8 % (8-40); MCH 26.6 pg (25.7-33.7); MCHC 31.2 g/dl (32.0-36.0); MEAN CELL VOLUME 85.1 fl (80-96); MEAN PLT VOLUME 8.3 fl (7.5-11.1); MONO % 5.6 % (3.8-10.2); NEUT % 80.4 % (42.8-82.8); PLATELET COUNT 255 K/MM3 (134-434); RBC 3.54 M/mm3 (3.60-5.2); RDW 15.1 % (11.6-15.6); WHITE BLOOD COUNT 19.5 K/mm3 (4.0-10.0)
[2017-06-09 07:29] LABS: ANION GAP 9 (8-16); BLOOD UREA NITROGEN 20 mg/dL (7-18); CHLORIDE 105 mmol/L (98-107); CO2 26 mmol/L (21-32); CREATININE 0.9 mg/dL (0.55-1.02); GLUCOSE,RANDOM 117 mg/dL (74-106); POTASSIUM 4.4 mmol/L (3.5-5.1); SODIUM 140 mmol/L (136-145)
--- NOTE | 2017-06-09 08:17 | DS ---
Physical Exam: SUBJECTIVE: Patient seen and examined. No distress, no acute changes. Family wants to bring pt home, will make arrangements for Lovenox sq injections OBJECTIVE: Vital Signs Period Temp Pulse Resp BP Sys/Valerio Pulse Ox Last 24 Hr 97.4 F-98.1 F 78-84 18-20 122-143/70-85 94 PE Neuro: alert, awake, cn 2-12intact Pulm: basilar crackles L > R CV: s1 s2 irregular rhythm Abd: s nt nd + bs ExT: RLE incision packed, CDI Laboratory Results - last 24 hr 06/08/17 06/08/17 06/09/17 11:24 22:24 05:45 WBC 19.5 H D RBC 3.54 L Hgb 9.4 L Hct 30.1 L MCV 85.1 MCH 26.6 MCHC 31.2 L RDW 15.1 Plt Count 255 MPV 8.3 Neutrophils % 80.4 D Lymphocytes % 13.8 D Monocytes % 5.6 Eosinophils % 0.1 Basophils % 0.1 Sodium Potassium Chloride Carbon Dioxide Anion Gap BUN Creatinine POC Glucometer 230 178 Random Glucose Calcium 06/09/17 05:45 WBC RBC Hgb Hct MCV MCH MCHC RDW Plt Count MPV Neutrophils % Lymphocytes % Monocytes % Eosinophils % Basophils % Sodium 140 Potassium 4.4 Chloride 105 Carbon Dioxide 26 Anion Gap 9 BUN 20 H Creatinine 0.9 POC Glucometer Random Glucose 117 H Calcium 8.0 L HOSPITAL COURSE: Date of Admission:05/31/17 Date of Discharge: 06/09/17 Minutes to complete discharge: 37 Discharge Summary Reason For Visit: PRE SYNCOPE Current Active Problems Acute kidney injury (Acute) Atrial fibrillation (Acute) CAD (coronary artery disease) (Acute) DVT (deep venous thrombosis) (Acute) Dementia (Acute) Elevated troponin (Acute) IVC thrombosis (Acute) Lactic acidosis (Acute) Right atrial thrombus (Acute) Syncope, near (Acute) Systolic dysfunction, left ventricle (Acute) Hospital Course: Initial Hospital Course: Briefly, this 86 year-old female with PMH significant for HTN, atrial fibrillation off a/c x 3 weeks, systolic heart failure, carotid artery disease, venous stasis ulcers, and dementia. Per the patient's aide, patient has had upper respiratory symptoms, including a dry cough, x 10 days. Patient had an appointment to see her PCP, when she arrived she became cold and clammy and she had a brief episode of unresponsiveness and hypotensive. In the ED, the patient was at her baseline mental status. Patient was taken off Xarelto three weeks ago following a fall and injury to her right leg causing a hematoma which required surgical incision at [facility]. Imaging: - ECHO 05/31/17: nl LV/EF. RV tds. dilated LA/RA. large complex echodensity in RA , protrudes into IVC c/w thrombus. mod TR. RVSP 47. Subsequent Hospital Course/Progress Note/DC summary: Assessment: 86 year-old female with a PMH significant for HTN, Afib off a/c x 3 weeks following a fall and injury to her right leg causing a hematoma which required surgical incision at [facility],systolic heart failure, carotid artery disease, venous stasis ulcers,and dementia, admitted with syncope and URI symptoms. Found to have bilateral DVTs and RA thrombus and PE. Plan: 1. Extensive RA thrombus, Pulmonary emboli - CTA shows PE along with RA thrombus - Lovenox 70mg BID - CTAP, CT head negative for malignancy - Plan: no IVC placement/thrombolysis at this time unless pt is decompensating, will need eval for exclusion factors first - Close follow up with Pulmonary and hematology for imaging to eval pulmonary nodule and renal cysts, referral info enclosed in dc paper work 2. Bilateral LE DVT - Lovenox BID 3. Syncope - Quiescent - Possible PE induced vs RA mass 4. UTI/Leukocytosis - Pt with extensive PE/DVT/RA thrombus, could be contributing to elevated wbc - Urine c/s + enterococcus, although asymptomatic - Will treat with levaquin 500mg x7 days 5. A fib, controlled - Atenolol 50mg daily 6. Systolic heart failure - Not in exacerbation - Lasix stopped 7. THO - Resolved - Off edgar/lasix 8. Right lower extremity wound - Continue xeroform and sterile gauze - Surgery follow up as outpt 9. Dementia - Continue Donepezil Dispo: - Home with 24 hr care, follow up visits as outline above - Pt sister uma pam oliver Condition: Stable - Instructions Diet, Activity, Other Instructions: Please return to the ED for any new, persistent, or worsening symptoms. Follow up with your PCP in 1 week Take home medications as directed on home medication list Injections with Lovenox 70mg twice daily Close follow up with Pulmonary and Heme.onc regarding follow up imaging of pulmonary nodules and renal cysts (referral enclosed) Cardiology follow up in 1-2 weeks Complete antibiotics as directed and until completed Referrals: Ronaldo Reynoso MD [Staff Physician] - Sissy Cardona MD [Staff Physician] - Disposition: VNS/HOME HEALTH CARE - Home Medications Comprehensive Discharge Medication List: Ambulatory Orders Cholecalciferol (Vitamin D3) [Vitamin D3] 2,000 unit PO DAILY tablet 01/22/17 Donepezil HCl [Aricept] 5 mg PO HS 05/30/17 Potassium Chloride [K-Dur -] 20 meq PO BID 05/30/17 Atenolol [Tenormin -] 50 mg PO DAILY #30 tablet 06/09/17 Enoxaparin [Lovenox -] 70 mg SQ BID #60 disp.syrin 06/09/17 This patient is new to me today: No Emergency Visit: Yes ED Registration Date: 05/31/17 Care time: The patient presented to the Emergency Department on the above date and was hospitalized for further evaluation of their emergent condition. Critical Care patient: No - Discharge Referral Referred to [facility] Med P.C.: No
[2017-06-09] MEDS ORDERED: LEVOFLOXACIN 500 MG TABLET (FP) PO ONE (08:30)
[2017-06-09] MEDS ORDERED: LEVOFLOXACIN 500 MG IVPB 500 MG/100 ML BAG IVPB SCH (10:00)
[2017-06-09] MEDS: ATENOLOL 50 MG TABLET (FP) PO SCH (10:30)
--- NOTE | 2017-06-09 10:46 | PN ---
Progress Note, Physician History of Present Illness: No events overnight Tele: Afib 70s No dyspnea - Current Medication List Current Medications: Active Medications Acetaminophen (Tylenol -) 650 mg PO Q6H PRN PRN Reason: FEVER Last Admin: 06/07/17 20:35 Dose: 650 mg Atenolol (Tenormin -) 50 mg PO DAILY [facility] Last Admin: 06/09/17 10:30 Dose: 50 mg Donepezil HCl (Aricept -) 5 mg PO HS [facility] Last Admin: 06/09/17 00:16 Dose: 5 mg Enoxaparin Sodium (Lovenox -) 70 mg SQ BID [facility] Last Admin: 06/09/17 10:29 Dose: 70 mg Sodium Chloride (Normal Saline -) 1,000 mls @ 42 mls/hr IV ASDIR [facility] Last Admin: 06/08/17 23:59 Dose: 42 mls/hr Insulin Aspart (Novolog Vial Sliding Scale -) 1 vial SQ ACHS [facility] PRN Reason: Protocol Last Admin: 06/09/17 07:07 Dose: Not Given - Objective Vital Signs: Vital Signs Temperature 97.6 F 06/09/17 06:00 Pulse Rate 80 06/09/17 06:00 Respiratory Rate 18 06/09/17 06:00 Blood Pressure 136/85 06/09/17 06:00 O2 Sat by Pulse Oximetry (%) 94 L 06/08/17 10:00 Constitutional: Yes: No Distress, Calm Eyes: Yes: WNL HENT: Yes: WNL Neck: Yes: WNL Cardiovascular: Yes: Pulse Irregular Respiratory: Yes: CTA Bilaterally Gastrointestinal: Yes: WNL Extremities: Yes: WNL Edema: Yes Edema: LLE: Trace, RLE: Trace Labs: CBC, BMP 06/09/17 05:45 06/09/17 05:45 INR, PTT INR 1.33 (0.82-1.09) H 05/30/17 15:30 Assessment/Plan Echo 05/31/17: nl LV/EF. RV tds. dilated LA/RA. large complex echodensity in RA, protrudes into IVC c/w thrombus. mod TR. RVSP 47. CTA: extensive bilateral PE. 1 cm RUL mass suspicious for malignancy. Small bilateral pleural effusions and basilar atelectasis R>L. LE duplex: bilat DVTs (extensive RLE) Assessment/Plan 86 year-old female with a PMH significant for HTN, atrial fibrillation off a/c x 3 weeks, ? systolic heart failure, carotid artery disease, venous stasis ulcers, and dementia. + upper respiratory symptoms, including a dry cough, x 10 days. At PMD office on DOA she became cold and clammy and she had a brief episode of unresponsiveness. Her blood pressure was noted to be low. Returned to baseline mental status. In the ED, the patient was at her baseline mental status. Patient was taken off Xarelto three weeks ago following a fall and injury to her right leg causing a hematoma which required surgical incision at [facility]. extensive LE DVT, RA thrombus: -probable thrombus in RA, extending from IVC. likely from extensive RLE thrombus , in transit in setting of both extensive bilateral DVT (? provoked, given recent fall with injury and surgical procedure) and extensive bilateral PE with concern for RUL malignancy. - RV not well seen on echo but remains hemodynamically stable, oxygenating well. Tolerating AC. No strong indication for either ivc placement or thrombolysis at this time. However, given intracardiac thrombus and extensive clot burden, she is at risk for clinical deterioration. can consider need for thrombolysis if she decompensates clinically. -on lovenox per Heme -if she remains clinically stable, will rec repeat imaging after 2-4 weeks of AC , expect thrombus to organize and/or break up - malignancy w/u per hematology consult -Stable syncope: -brief LOC with hypotension on DOA at PMD office -likely sec to PE or ? right sided cardiac output obstruction from RA mass -transient sx's, hemodynamically stable since -mgmt plan as above -No tele events Afib: -HR controlled, cont atenolol -AC as above - enoxaparin. HTN: -bp controlled, same meds
[2017-06-09 11:20] VITALS: BP 129/76; PULSE 84; TEMP 97.8
--- NOTE | 2017-06-09 13:27 | PN ---
Progress Note (short form) - Note Progress Note: Overall breathing improving. No CP. No acute overnight. Intake & Output 06/06/17 06/07/17 06/08/17 06/09/17 23:59 23:59 23:59 23:59 Intake Total 1424 520 210 250 Balance 1424 520 210 250 Last Vital Signs Temp Pulse Resp BP Pulse Ox 97.8 F 84 18 129/76 95 06/09/17 10:00 06/09/17 10:00 06/09/17 10:00 06/09/17 10:00 06/09/17 10:00 Active Medications Acetaminophen (Tylenol -) 650 mg PO Q6H PRN PRN Reason: FEVER Last Admin: 06/07/17 20:35 Dose: 650 mg Atenolol (Tenormin -) 50 mg PO DAILY [facility] Last Admin: 06/09/17 10:30 Dose: 50 mg Donepezil HCl (Aricept -) 5 mg PO HS [facility] Last Admin: 06/09/17 00:16 Dose: 5 mg Enoxaparin Sodium (Lovenox -) 70 mg SQ BID [facility] Last Admin: 06/09/17 10:29 Dose: 70 mg Sodium Chloride (Normal Saline -) 1,000 mls @ 42 mls/hr IV ASDIR [facility] Last Admin: 06/08/17 23:59 Dose: 42 mls/hr Insulin Aspart (Novolog Vial Sliding Scale -) 1 vial SQ ACHS [facility] PRN Reason: Protocol Last Admin: 06/09/17 11:55 Dose: Not Given Constitutional: Yes: NAD Eyes: Yes: WNL HENT: Yes: WNL Neck: Yes: WNL Cardiovascular: Yes: Pulse Irregular, S1, S2 Respiratory: Yes: Diminished at the bases Gastrointestinal: Yes: Normal Bowel Sounds, Soft Extremities: Yes: WNL Edema: Yes Labs: Laboratory Results - last 24 hr 06/08/17 06/09/17 06/09/17 22:24 05:45 05:45 WBC 19.5 H D RBC 3.54 L Hgb 9.4 L Hct 30.1 L MCV 85.1 MCH 26.6 MCHC 31.2 L RDW 15.1 Plt Count 255 MPV 8.3 Neutrophils % 80.4 D Lymphocytes % 13.8 D Monocytes % 5.6 Eosinophils % 0.1 Basophils % 0.1 Sodium 140 Potassium 4.4 Chloride 105 Carbon Dioxide 26 Anion Gap 9 BUN 20 H Creatinine 0.9 POC Glucometer 178 Random Glucose 117 H Calcium 8.0 L Assessment/Plan Problem List - Problems (1) DVT (deep venous thrombosis) Code(s): I82.409 - ACUTE EMBOLISM AND THOMBOS UNSP DEEP VN UNSP LOWER EXTREMITY (2) Right atrial thrombus Code(s): ZGL1692 - (3) IVC thrombosis Code(s): I82.220 - ACUTE EMBOLISM AND THROMBOSIS OF INFERIOR VENA CAVA (4) Acute kidney injury Code(s): N17.9 - ACUTE KIDNEY FAILURE, UNSPECIFIED (5) Elevated troponin Code(s): R74.8 - ABNORMAL LEVELS OF OTHER SERUM ENZYMES (6) Lactic acidosis Code(s): E87.2 - ACIDOSIS (7) Atrial fibrillation Code(s): I48.91 - UNSPECIFIED ATRIAL FIBRILLATION (8) CAD (coronary artery disease) Code(s): I25.10 - ATHSCL HEART DISEASE OF [place] CORONARY ARTERY W/O ANG PCTRS (9) Systolic dysfunction, left ventricle Code(s): I51.9 - HEART DISEASE, UNSPECIFIED (10) Dementia Code(s): F03.90 - UNSPECIFIED DEMENTIA WITHOUT BEHAVIORAL DISTURBANCE Assessment/Plan Extensive RLE DVT,,LLE Large Bilateral pulmonary emboli main pulmonary arteries RA/IVC thrombus Likely PE Acute Kidney Injury improved Atrial Fibrillation +Troponins LV Systolic Dysfunction Dementia RUL Nodule/mass - Lovenox 70mg SQ BID - Will need further imaging and eventual tissue diagnosis once stable from this acute episode - D/C planning in progress Dr Duncan
== END 2017-06-09 15:59 | disposition home health service (06) | DRG 299 ==
LOC: FER 15:05 → FM/S 18:32 → OBSVTOIN 05-31 11:06 → J4S 06-01 11:43
PROVIDERS: ADMIT Internal Medicine; ATTEND Nurse Practitioner Acute Care
DX: I82.411 Acute embolism and thrombosis of right femoral vein (principal); I26.99 Other pulmonary embolism without acute cor pulmonale; I13.0 Hypertensive heart and chronic kidney disease with heart failure and stage 1 through stage 4 chronic kidney disease, or unspecified chronic kidney disease; I50.22 Chronic systolic (congestive) heart failure; N17.9 Acute kidney failure, unspecified; J98.11 Atelectasis; J90 Pleural effusion, not elsewhere classified; R64 Cachexia; E87.2 Acidosis; N18.9 Chronic kidney disease, unspecified; I82.432 Acute embolism and thrombosis of left popliteal vein; I51.3 Intracardiac thrombosis, not elsewhere classified; I82.890 Acute embolism and thrombosis of other specified veins; E86.1 Hypovolemia; I48.2 Chronic atrial fibrillation; F03.90 Unspecified dementia, unspecified severity, without behavioral disturbance, psychotic disturbance, mood disturbance, and anxiety; R33.9 Retention of urine, unspecified; Z68.26 Body mass index [BMI] 26.0-26.9, adult; J06.9 Acute upper respiratory infection, unspecified; R91.1 Solitary pulmonary nodule; I25.10 Atherosclerotic heart disease of native coronary artery without angina pectoris
CPT/HCPCS: 36415; 70450-TC; 70470-TC; 71045-TC; 71275-TC; 74177-TC; 76775-TC; 80048; 80053; 80061; 81003; 82272; 82550; 82570; 82607; 82728; 82747; 82962; 83036; 83540; 83550; 83605; 83615; 83735; 84100; 84300; 84484; 85014; 85025; 85027; 85044; 85610; 85730; 87040; 87086; 87186; 87804; 87899; 93005; 93306-TC; 93880-TC; 93970-TC; 97116-GP; 97161-GP; 99285-25; G0378; J1644